=== PATIENT | female | born 1965 | race Caucasian/White ===

== ENCOUNTER 2016-11-14 11:24 | Inpatient (IN) ==
[2016-11-14] MEDS ORDERED: METOCLOPRAMIDE 10 MG/2 ML VIAL IV STA (11:48)
[2016-11-14] MEDS ORDERED: ONDANSETRON 4 MG/2 ML VIAL IV STA (11:48)
[2016-11-14] MEDS ORDERED: PANTOPRAZOLE 40 MG VIAL IV STA (11:48)
[2016-11-14] MEDS ORDERED: SODIUM CHLORIDE 0.9% 2,000 ML IV STA (11:48)
--- NOTE | 2016-11-14 11:53 | Emergency Department Note ---
Arrival - Arrival Chief Complaint: Abdominal / Flank Pain Stated Complaint: epigastric/ chest pain radiating to back/n/v ED Nursing Triage Note: C/O EPIGASTRIC PAIN WITH RADIATION TO THE RIGHT UPPER ABDOMEN WITH NAUSEA. PT HAS HX OF PANCREATITIS Mode of Arrival: Ambulatory Limitations: No Limitations Source: Patient Time Seen by Provider: 11/14/16 11:48 - History of Present Illness HPI Narrative: This 51-year-old white female presents with 2 days of progressive midepigastric burning radiating to the back. This has been associated with frequent vomiting and constant nausea. The patient does have a history of pancreatitis in the past secondary to alcohol abuse. She denies any liver problems, bright red blood per rectum, melena, or peptic ulcer disease. With this pain she has had significant heartburn and water brash symptoms. Complicating the situation is a week's worth of sinus congestion, rhinorrhea, and dry cough. Currently although uncomfortable she appears in no acute distress. Onset (ago): day(s) (patient presents 2 days post-onset of symptoms) Consistency: constant Severity: moderate Severity scale (1-10): 6 Quality: burning Date of Last Menstrual Period: HYST Allergies/Adverse Reactions: Allergies Allergy/AdvReac Type Severity Reaction Status Date / Time No Known Allergies Allergy Verified 01/01/16 01:37 Home Medications: Home Medications Medication Instructions Recorded Confirmed Type Escitalopram [Lexapro] 20 mg PO DAILY 02/25/15 11/14/16 History cloNIDine TAB [Catapres Tab] 0.2 mg PO TID #90 tablet 05/23/15 11/14/16 Rx Metoprolol Succinate Xl [Toprol Xl] 50 mg PO DAILY 07/25/15 11/14/16 History Losartan/Hydrochlorothiazide 1 tablet PO DAILY 01/01/16 11/14/16 History [Hyzaar 100-25 Tablet] Esomeprazole Magnesium [Nexium] 40 mg PO BID 10/12/16 11/14/16 History Oxycodone HCl/Acetaminophen 1 each PO TID 10/12/16 11/14/16 History [Percocet 10-325 mg Tablet] Gabapentin Cap/Tab [Neurontin 300 mg PO TID 11/14/16 11/14/16 History Cap/Tab] Review of System - Review of System 12 point system: reviewed and no additional remarkable complaints except as stated - Review of System Constitutional: Present: as per HPI Head/Ears/Nose/Throat: Present: see HPI Respiratory: Present: as per HPI Gastrointestinal: Present: as per HPI Medical,Surgical,& Family Hx - Medical History Cardio: History of: Hypertension Psychological: History of: Anxiety Disorders, Depression, Psychiatric/Substance Abuse Tx (history of alcohol use) HEENT: History of: HEENT Problems (sinus problems) Endocrine: History of: Dyslipidemia Respiratory: History of: Obstructive Sleep Apnea Gastrointestinal: History of: GERD, Pancreatitis, Polyps, GI Problems (Hiatal Hernia-- History of alcoholism) Musculoskeletal: History of: Back/Neck Problems (chronic back pain), Herniated Disk (3 in neck) Reproductive: No history of: Reproductive Problems (3 c sections) Other: No history of: Cancer - Surgical History Abdominal Surgeries: Surgical HX of: Abdominal Surgery (Exploratory lap 1981), Cholecystectomy, Colonoscopy (11/16/14) Reproductive Surgeries: Surgical HX of;: Hysterectomy (2004) - Family History Family History: Reports;: Family Heart Disease (mother had 2 surgeries), Family Hypertension (mother, brother, and sister) - Social History Smoking Status: Former smoker Have you smoked in the last 12 months: No Frequency of Alcohol Use: None Type of Drug Use: None Marital Status: Single Lives With:: Alone Functional capacity: independent ambulation Exam Physical Examination: GENERAL: Obese white female with flushed face in no acute distress. HEENT: Normocephalic. No trauma. Moist mucous membranes. EOMI. PERRLA ENT ears clear, throat clear, nose reveals nasal mucosa erythema and edema. NECK: Supple. Cervical adenopathy. CARDIAC: Regular. No murmurs. Heart rate 110 CHEST: Clear to auscultation. No respiratory distress. O2 sat 99% ABDOMEN: Soft. Very tender mid epigastrium. Hypoactive bowel sounds. EXTREMITIES: No trauma. Normal ROM. No pedal edema. SKIN: No diaphoresis. No rash. Flushed face NEURO: Alert. Physiologic exam No focal deficits. Vital Signs: Vital Signs Temperature 98.1 F 11/14/16 11:35 Pulse Rate 93 H 11/14/16 13:00 Respiratory Rate 15 11/14/16 12:16 Blood Pressure 159/96 11/14/16 13:00 O2 Sat by Pulse Oximetry 100 11/14/16 13:00 Course - Reevaluation(s) Reevaluation #1: Discussed with patient the need for hospitalization - Consultations Consultation #1: Discussed with hospitalist service who will admit for further evaluation and treatment. Results - Labs CBC & BMP: 11/14/16 12:01 11/14/16 12:01 Labs: I have reviewed the laboratory and noted the greatly elevated lipase. - Impressions EKG: Sinus rhythm at 99 with normal AL interval and QRS duration. Left axis deviation. Poor R-wave progression anteriorly. No acute injury pattern noted. - Diagnostic Findings Procedure: Chest x-ray: image reviewed by me, report reviewed by me (no acute disease), CT Abdomen and Pelvis: image reviewed by me, report reviewed by me ( mild diverticula, proximal stenosis of the SMA, pancreatitis with some stranding and fluid peripancreas) Disposition Clinical Impression: acute pancreatitis, SMA stenosis Case discussed with: patient Disposition: Still a Patient Condition: Stable Time of Disposition: 14:44
--- NOTE | 2016-11-14 12:14 | EKG Report ---
Stationary ECG Study [facility] ER Test Date: 11/14/2016 12:12:53 PM Pat Name: CECE ROA Department: Room: Gender: F Veterinary Virus Serum Inspector: THIERNO : 1965 Requested by: Layton Skelton Order Number: [id number] Reading MD: MICAH VARGAS Intervals [place] Rate: 99 P: 61 AR: 150 QRS: -53 QRSD: 76 T: 65 QT: 383 QTc: 439 Interpretive Statements SINUS RHYTHM MARKED LEFT AXIS DEVIATION possible SEPTAL MYOCARDIAL INFARCTION, OF INDETERMINATE AGE Electronically Signed On 11-14-16 18:02:21 ENAMEL DIPPER by MICAH VARGAS [email or web address]
[2016-11-14] MEDS ORDERED: PANTOPRAZOLE 40 MG VIAL IV ONE (12:15)
[2016-11-14] MEDS ORDERED: METOCLOPRAMIDE 10 MG/2 ML VIAL ONE (12:15)
[2016-11-14] MEDS ORDERED: ONDANSETRON 4 MG/2 ML VIAL ONE (12:15)
[2016-11-14 12:25] LABS: Basophils % 0.2 % (0.0-0.8); Eosinophils % 0.4 % (0.00-10.9); Hematocrit 48.4 VOL% (35.7-47.0); Hemoglobin 16.1 GM/DL (12.0-16.0); Immature Granulocytes % 0.5 %; Immature Granulocytes Absolute 0.06 #; Lymphocytes # 1.4 10*3/uL (1.4-4.0); Lymphocytes % 12.7 % (21.3-54.2); Mean Corpuscular HGB Conc 33.3 GM/DL (32-36); Mean Corpuscular Hemoglobin 32 PG (27-34); Mean Corpuscular Volume 95.7 FL (87-102); Mean Platelet Volume 10.5 FL (9.6-12.0); Monocytes # 0.5 10*3/uL (0.11-0.8); Neutrophils # 9.2 10*3/uL (1.4-7.4); Neutrophils % 82.2 % (38.7-73.9); Platelet Count 307 10*3/uL (130-400); Red Blood Count 5.06 10*6/uL (3.8-5.5); Red Cell Distribution Width 13.5 % (9.3-17.3); White Blood Count 11.2 10*3/uL (4.5-13.71)
[2016-11-14] MEDS ORDERED: KETOROLAC 30 MG/1 ML VIAL IV STA (12:28)
[2016-11-14] MEDS ORDERED: KETOROLAC 30 MG/1 ML VIAL ONE (12:30)
--- NOTE | 2016-11-14 12:34 | XRay Report ---
History is abdominal pain Comparison 10/13/2016 Chest one view The heart is normal in size. The lungs are clear. Impression: No acute pathology seen. PROCEDURE INTERPRETED AT [facility] [place] DEPARTMENT OF RADIOLOGY Final Report Signed by: Dr. Erika Bajwa
[2016-11-14] MEDS ORDERED: hydrALAZINE 20 MG/1 ML VIAL IV STA (12:43)
[2016-11-14] MEDS ORDERED: hydrALAZINE 20 MG/1 ML VIAL ONE (12:50)
[2016-11-14 12:58] LABS: Lactic Acid 2.6 MMOL/L (0.4-2.0)
[2016-11-14 13:00] LABS: Alanine Aminotransferase 47 U/L (13-56); Alkaline Phosphatase 98 U/L (45-117); Amylase 168 U/L (25-115); Aspartate Amino Transferase 52 U/L (0-37); Blood Urea Nitrogen 15 MG/DL (7-18); Glucose 169 MG/DL (74-106); Osmolality,Calculated 283.4 MOS/KG (273-304); Potassium 3.6 MMOL/L (3.5-5.1); Sodium 140 MMOL/L (136-145); Total Protein 7.2 G/DL (6.4-8.3); Troponin I Only < 0.015 NG/ML (0.00-0.045)
[2016-11-14] MEDS ORDERED: HYDROmorphone 2 MG/1 ML VIAL IV STA (13:32)
[2016-11-14] MEDS ORDERED: HYDROmorphone 2 MG/1 ML VIAL ONE (13:33)
[2016-11-14 13:57] LABS: Barbiturates Screen,Urine Negative (Negative); Benzodiazepines Screen,Urine Negative (Negative); Cannabinoid Screen,Urine Negative (Negative); Opiate Screen,Urine Positive (Negative); Phencyclidine Screen,Urine Negative (Negative)
[2016-11-14 14:12] LABS: Apearance,Urine Slightly Hazy (Clear); Bilirubin,Urine Negative (Negative); Blood, Urine Negative (Negative); Glucose,Urine (UA) Negative (Negative); Hyaline Casts,Urine 34 /LPF (0-3); Ketones,Urine Negative (Negative); Mucus,Urine Occasional /LPF (Occasional); Nitrite,Urine Negative (Negative); Protein,Urine Negative; RBC,Urine <1 /HPF (0-4); Squamous Epithelial Cell,Urine Occasional /HPF (0-10); Urine Color Yellow (Yellow); Urine Urobilinogen < 2.0 EU/DL (0.2-1.0); WBC,Urine 2 /HPF (0-6)
--- NOTE | 2016-11-14 14:26 | CT Report ---
History is pancreatitis Comparison with 07/26/2015 100 cc Omni 350 utilized A patient status post cholecystectomy. Mild biliary ductal prominence is similar on the prior study No focal defects seen in the liver, spleen, adrenals. areas of cortical scarring in both kidneys again seen more pronounced on the left There has been development of a mild amount of fluid and stranding in the fat surrounding the pancreas diffusely without a discrete more focal loculated fluid collection. Pancreatic duct is normal in size No enlarged retroperitoneal nodes seen. There are atherosclerotic changes present with at least moderate stenosis of the proximal SMA. Pelvis: There are mild diverticuli present. No free fluid or focal inflammatory changes seen in the pelvis. Impression: 1. Mild acute pancreatitis superimposed on chronic changes detailed above PROCEDURE INTERPRETED AT [facility] DEPARTMENT OF RADIOLOGY Final Report Signed by: Dr. Erika Bajwa
--- NOTE | 2016-11-14 15:10 | Hospitalist History & Physical ---
Assessment and Plan (1) Acute pancreatitis Status: Chronic Assessment and plan: Recurrent acute pancreatitis with elevated lipase we will hydrate the patient and watch her in the hospital she's has any fever or get blood cultures and start her on antibiotics. I don't believe that she needs any kind of studies at this time Current Visit: No Qualifiers: Pancreatitis type: alcohol induced History of Present Illness Chief complaint: abd pain History of present illness: Ms. Lopez is a 51 year old female 2 days of abdominal pain starting mid epigastric and radiating to her back is typical for the pain that she has when she has pancreatitis she states the pain got markedly worse in the middle the night. Her risk factor for pancreatitis she tells me his alcohol she had anything to drink in over a week. She's had no diarrhea and no bleeding accompanying this illness she denies any fever or chills. No other complaints and no alleviating factors Home Medications Medication Instructions Recorded Confirmed Type Escitalopram [Lexapro] 20 mg PO DAILY 02/25/15 11/14/16 History cloNIDine TAB [Catapres Tab] 0.2 mg PO TID #90 tablet 05/23/15 11/14/16 Rx Metoprolol Succinate Xl [Toprol Xl] 50 mg PO DAILY 07/25/15 11/14/16 History Losartan/Hydrochlorothiazide 1 tablet PO DAILY 01/01/16 11/14/16 History [Hyzaar 100-25 Tablet] Esomeprazole Magnesium [Nexium] 40 mg PO BID 10/12/16 11/14/16 History Oxycodone HCl/Acetaminophen 1 each PO TID 10/12/16 11/14/16 History [Percocet 10-325 mg Tablet] Gabapentin Cap/Tab [Neurontin 300 mg PO TID 11/14/16 11/14/16 History Cap/Tab] Allergies Allergy/AdvReac Type Severity Reaction Status Date / Time No Known Allergies Allergy Verified 01/01/16 01:37 Medical,Surgical,& Family Hx - Medical History Cardio: History of: Hypertension Psychological: History of: Anxiety Disorders, Depression, Psychiatric/Substance Abuse Tx (history of alcohol use) HEENT: History of: HEENT Problems (sinus problems) Endocrine: History of: Dyslipidemia Respiratory: History of: Obstructive Sleep Apnea Gastrointestinal: History of: GERD, Pancreatitis, Polyps, GI Problems (Hiatal Hernia-- History of alcoholism) Musculoskeletal: History of: Back/Neck Problems (chronic back pain), Herniated Disk (3 in neck) Reproductive: No history of: Reproductive Problems (3 c sections) Other: No history of: Cancer - Surgical History Abdominal Surgeries: Surgical HX of: Abdominal Surgery (Exploratory lap 1981), Cholecystectomy, Colonoscopy (11/16/14) Reproductive Surgeries: Surgical HX of;: Hysterectomy (2004) - Family History Family History: Reports;: Family Heart Disease (mother had 2 surgeries), Family Hypertension (mother, brother, and sister) - Social History Smoking Status: Former smoker Frequency of Alcohol Use: None Type of Drug Use: None Review of systems: Constitutional: No fatigue or fever Eyes: No loss of vision or blurred vision Ears: No decreased hearing no ear pain Mouth no lip swelling or sore throat Cardiovascular no chest pain no claudication Respiratory no cough or shortness of breath GI no abdominal pain or bloating or bleeding : No urinary frequency or hesitancy musculoskeletal: No Arthralgias or back pain Psychiatric: Confusion memory loss Endocrine: No polydipsia or polyuria Hematology: No easy bleeding or bruising 12 point review of systems otherwise unremarkable Exam - Constitutional Vitals: Period Temp Pulse Resp BP Sys/Boyce Pulse Ox Last 24 Hr 98.1 F 93-114 15-22 142-229/73-166 99-100 Exam: Constitutional: Patient in no apparent distress. Eyes: Conjunctivae and lids are normal Pupils equal round react to light and accommodation irises are normal HEENT: External ears and nose without lesions masses or scarring Oropharynx without erythema exudates or thrush Neck is supple without masses no jugular venous distention Lungs: Lungs are clear to auscultation and resonant percussion Cardiovascular: Heart auscultation regular rate and rhythm without murmur rub or gallop PMI in the midclavicular line by palpation carotid arteries 2+ without bruits bowel abdomen: Bowel sounds normoactive no masses no rebound or regular tenderness no organomegaly Lymphatic: No anterior posterior cervical or axillary adenopathy Musculoskeletal: No active synovitis no malalignment of the joints good range of motion of upper and lower extremities Skin : normal to inspection and palpation Neurologic: Cranial nerves II through XII intact motor sensory intact DTRs 2+ negative cerebellar signs Psychiatric: Oriented to person place and time normal memory normal mood and affect normal judgment Results - Labs CBC & BMP: 11/14/16 12:01 11/14/16 12:01
[2016-11-14] MEDS ORDERED: ACETAMINOPHEN 325 MG TABLET PO PRN (16:54)
[2016-11-14] MEDS ORDERED: PROMETHAZINE 25 MG TABLET PO PRN (16:54)
[2016-11-14] MEDS: MORPHINE 2 MG/1 ML SYRINGE IV PRN (17:15)
[2016-11-14] MEDS: DEXTROSE 5% NACL 0.9% 1,000 ML IV SCH ×2 (17:16→22:59)
[2016-11-14] MEDS: HYDROmorphone 2 MG/1 ML VIAL IV PRN ×2 (19:43→23:39)
[2016-11-14] MEDS: ONDANSETRON 4 MG/2 ML VIAL IV PRN (23:42)
[2016-11-15] MEDS: HYDROmorphone 2 MG/1 ML VIAL IV PRN ×6 (03:07→21:46)
[2016-11-15] MEDS: DEXTROSE 5% NACL 0.9% 1,000 ML IV SCH ×4 (04:47→21:49)
[2016-11-15 05:14] LABS: Basophils % 0.3 % (0.0-0.8); Eosinophils # 0.1 10*3/uL (0.0-0.87); Eosinophils % 1.9 % (0.00-10.9); Hematocrit 38.5 VOL% (35.7-47.0); Hemoglobin 12.6 GM/DL (12.0-16.0); Immature Granulocytes % 0.3 %; Immature Granulocytes Absolute 0.02 #; Lymphocytes # 1.6 10*3/uL (1.4-4.0); Lymphocytes % 23.8 % (21.3-54.2); Mean Corpuscular HGB Conc 32.7 GM/DL (32-36); Mean Corpuscular Hemoglobin 32 PG (27-34); Mean Platelet Volume 10.7 FL (9.6-12.0); Monocytes # 0.4 10*3/uL (0.11-0.8); Monocytes % 5.4 % (1.7-12.7); Neutrophils # 4.7 10*3/uL (1.4-7.4); Neutrophils % 68.3 % (38.7-73.9); Platelet Count 225 10*3/uL (130-400); Red Blood Count 3.89 10*6/uL (3.8-5.5); Red Cell Distribution Width 13.5 % (9.3-17.3); White Blood Count 6.8 10*3/uL (4.5-13.71)
[2016-11-15 05:44] LABS: Albumin 2.9 G/DL (3.4-5.0); Bilirubin,Total 1.2 MG/DL (0.2-1.0); Calcium 7.8 MG/DL (8.5-10.1); Potassium 3.3 MMOL/L (3.5-5.1); Total Protein 5.4 G/DL (6.4-8.3)
[2016-11-15] MEDS: ONDANSETRON 4 MG/2 ML VIAL IV PRN ×2 (06:33→18:15)
[2016-11-15] MEDS: NIFEdipine 10 MG CAPSULE PO PRN ×2 (06:43→08:53)
[2016-11-15] MEDS: LOSARTAN/HCTZ 50-12.5 MG TABLET PO SCH (08:52)
[2016-11-15] MEDS: METOPROLOL SUCCINATE XL 50 MG TABLET PO SCH (08:53)
--- NOTE | 2016-11-15 09:24 | Hospitalist Progress Note ---
Assessment and Plan (1) Acute pancreatitis Status: Chronic Assessment and plan: Recurrent acute pancreatitis with elevated lipase we will hydrate the patient and watch her in the hospital she's has any fever or get blood cultures and start her on antibiotics. I don't believe that she needs any kind of studies at this time 11/15 lipase is down a little bit still having pain continue the morphine keep her bowels at rest continue IV fluids. She's not had any fever or macro start antibiotics at this point her blood pressures gone up for gonorrhea add some oral medicines with sips of fluid Current Visit: No Qualifiers: Pancreatitis type: alcohol induced Hospitalist: Subjective Interval history: Patient without complaints today still having abdominal pain is a little bit better willing continue to continue the current medicines, add back some antihypertensives today Exam - Constitutional Vitals: Period Temp Pulse Resp BP Sys/Boyce Pulse Ox Last 24 Hr 97.2 F-99.2 F 82-110 18-23 145-225/98-123 97-100 Exam: Constitutional: Patient in no apparent distress. Eyes: Conjunctivae and lids are normal Pupils equal round react to light and accommodation irises are normal HEENT: External ears and nose without lesions masses or scarring Oropharynx without erythema exudates or thrush Neck is supple without masses no jugular venous distention Lungs: Lungs are clear to auscultation and resonant percussion Cardiovascular: Heart auscultation regular rate and rhythm without murmur rub or gallop PMI in the midclavicular line by palpation carotid arteries 2+ without bruits bowel abdomen: Bowel sounds normoactive no masses no rebound or regular tenderness no organomegaly Lymphatic: No anterior posterior cervical or axillary adenopathy Musculoskeletal: No active synovitis no malalignment of the joints good range of motion of upper and lower extremities Skin : normal to inspection and palpation Neurologic: Cranial nerves II through XII intact motor sensory intact DTRs 2+ negative cerebellar signs Psychiatric: Oriented to person place and time normal memory normal mood and affect normal judgment Results - Labs CBC & BMP: 11/15/16 04:10 11/15/16 04:10
[2016-11-16] MEDS: HYDROmorphone 2 MG/1 ML VIAL IV PRN ×4 (01:51→15:01)
[2016-11-16] MEDS: DEXTROSE 5% NACL 0.9% 1,000 ML IV SCH ×2 (03:33→08:43)
--- NOTE | 2016-11-16 05:40 | EKG Report ---
Stationary ECG Study [facility] Test Date: 11/16/2016 5:38:09 AM Pat Name: CECE ROA Department: Room: 519 Gender: F Renewal Specialist: SWAPNIL : 1965 Requested by: Sagar Kerr Order Number: [id number] Reading MD: ANTONIO RAZO Intervals [place] Rate: 69 P: 18 WI: 158 QRS: -46 QRSD: 82 T: 111 QT: 396 QTc: 415 Interpretive Statements SINUS RHYTHM MARKED LEFT AXIS DEVIATION SEPTAL MYOCARDIAL INFARCTION, PROBABLY OLD Electronically Signed On 11-16-16 08:50:47 FIELD SERVICES MANAGER by ANTONIO RAZO [email or web address]
[2016-11-16 06:25] LABS: Basophils % 0.2 % (0.0-0.8); Eosinophils # 0.1 10*3/uL (0.0-0.87); Eosinophils % 2.3 % (0.00-10.9); Hematocrit 40.1 VOL% (35.7-47.0); Hemoglobin 12.7 GM/DL (12.0-16.0); Immature Granulocytes % 0.4 %; Immature Granulocytes Absolute 0.02 #; Lymphocytes # 1.8 10*3/uL (1.4-4.0); Lymphocytes % 35.3 % (21.3-54.2); Mean Corpuscular HGB Conc 31.7 GM/DL (32-36); Mean Corpuscular Hemoglobin 32 PG (27-34); Mean Corpuscular Volume 101.5 FL (87-102); Mean Platelet Volume 10.8 FL (9.6-12.0); Monocytes # 0.2 10*3/uL (0.11-0.8); Monocytes % 4.2 % (1.7-12.7); Neutrophils % 57.6 % (38.7-73.9); Platelet Count 215 10*3/uL (130-400); Red Blood Count 3.95 10*6/uL (3.8-5.5); Red Cell Distribution Width 13.3 % (9.3-17.3); White Blood Count 5.2 10*3/uL (4.5-13.71)
[2016-11-16 06:41] LABS: Magnesium 2.1 MG/DL (1.8-2.4)
[2016-11-16 06:44] LABS: Bilirubin,Total 0.4 MG/DL (0.2-1.0); Calcium 8.5 MG/DL (8.5-10.1); Osmolality,Calculated 291.6 MOS/KG (273-304); Potassium 3.1 MMOL/L (3.5-5.1); Total Protein 5.8 G/DL (6.4-8.3)
[2016-11-16] MEDS: MORPHINE 2 MG/1 ML SYRINGE IV PRN (08:42)
[2016-11-16] MEDS: LOSARTAN/HCTZ 50-12.5 MG TABLET PO SCH (08:43)
[2016-11-16] MEDS: METOPROLOL SUCCINATE XL 50 MG TABLET PO SCH (08:43)
[2016-11-16] MEDS ORDERED: POTASSIUM CHLORIDE INJ 40 MEQ in DEXTROSE 5% NACL 0.9% 1,000 ML IV SCH (10:55)
[2016-11-16] MEDS: DEXT 5% NACL 0.9% KCL 40 MEQ 40 MEQ/1,000 ML BAG IV SCH ×2 (12:16→18:30)
[2016-11-16] MEDS: POTASSIUM CHLORIDE RIDER 10 MEQ in PREMIX 1 EACH IV SCH ×4 (12:16→15:34)
[2016-11-16] MEDS: POTASSIUM CHLORIDE 20 MEQ TABLET PO SCH ×2 (15:42→17:25)
--- NOTE | 2016-11-16 18:41 | Hospitalist Progress Note ---
Assessment and Plan (1) Pancreatitis, acute Status: Resolved Assessment and plan: see HPI, no more IV narcotic, po norco Current Visit: No Qualifiers: Pancreatitis type: alcohol induced (2) Hypokalemia Status: Acute Assessment and plan: replaced po Current Visit: Yes (3) Hypernatremia Status: Acute Assessment and plan: change ivf 1/2 ns Current Visit: Yes Hospitalist: Subjective Interval history: Nursing tells me impatience that her potassium was hurting too much from the IV. Patient is up at the snack machine and got 3 different things to eat. She ripped out her IV. If she is comfortable enough to eat she is comfortable to go without Dilaudid and morphine. Exam - Constitutional Vitals: Period Temp Pulse Resp BP Sys/Boyce Pulse Ox Last 24 Hr 96.3 F-98.4 F 69-78 18-24 121-196/83-110 90-100 Exam: Heart Rate-[RRR] Lungs-[CTAB] GI-[+bs soft, tender ] Ext-[no edema] neuro motor 5/5, alert and oriented times 3 psych normal mood and affect Results - Labs CBC & BMP: 11/16/16 05:18 11/16/16 05:18 Lab Results: I have reviewed the past 24 hour labs Labs: lipase 622
--- NOTE | 2016-11-16 19:29 | EKG Report ---
Stationary ECG Study [facility] Test Date: 11/16/2016 7:28:12 PM Pat Name: CECE ROA Department: Room: 519 Gender: F Auto Parts Handler: ARGENIS : 1965 Requested by: Lucero Teixeira Order Number: [id number] Reading MD: JULIETTE CA Intervals [place] Rate: 77 P: 17 IA: 137 QRS: -42 QRSD: 90 T: 88 QT: 384 QTc: 416 Interpretive Statements SINUS RHYTHM MARKED LEFT AXIS DEVIATION POSSIBLE RIGHT VENTRICULAR CONDUCTION DELAY MODERATE VOLTAGE CRITERIA FOR LVH, CONSIDER NORMAL VARIANT POSSIBLE ANTEROSEPTAL MYOCARDIAL INFARCTION, OF INDETERMINATE AGE MODERATE T- WAVE ABNORMALITY, CONSIDER LATERAL ISCHEMIA Electronically Signed On 11-16-16 19:57:48 LANDSCAPE FOREMAN by JULIETTE CA [id number]
[2016-11-16] MEDS: NIFEdipine 10 MG CAPSULE PO PRN (20:40)
[2016-11-17] MEDS: NIFEdipine 10 MG CAPSULE PO PRN (00:59)
[2016-11-17] MEDS: POTASSIUM CHLORIDE INJ 40 MEQ in SODIUM CHLORIDE 0.45% 1,000 ML IV SCH ×3 (01:25→11:59)
[2016-11-17 06:53] LABS: Albumin 3.5 G/DL (3.4-5.0); Bilirubin,Total 0.8 MG/DL (0.2-1.0); Calcium 9.2 MG/DL (8.5-10.1); Osmolality,Calculated 281.1 MOS/KG (273-304); Potassium 3.8 MMOL/L (3.5-5.1); Total Protein 6.6 G/DL (6.4-8.3)
[2016-11-17] MEDS: METOPROLOL SUCCINATE XL 50 MG TABLET PO SCH (08:42)
[2016-11-17] MEDS ORDERED: LOSARTAN 50 MG TABLET PO SCH (09:00)
[2016-11-17 11:19] VITALS: BP 162/109
--- NOTE | 2016-11-17 12:40 | Discharge Summary ---
<Yaakov,Amanda N - Last Filed: 11/17/16 12:36> Hospital Course - Hospital Course Hospital Course: Ms. Lopez is a 51 year old female who was admitted on 11/14/16 for acute pancreatitis. She was started on IV hydration and IV narcotics. She remained afebrile and required no IV antibiotics. She was kept NPO initially, began on clear liquid diet and progressed to soft diet, tolerated well. Pt needed some Potassium replacement, was intolerant of the IV potassium. She also was found getting up and walking to the snack machine and being non-compliant with the soft diet. She has been changed to PO pain medication. Her lipase is improved this morning, tolerating a diet, PO pain meds. She can be discharged to home today, please see discharge medication reconciliation for accurate discharge medications. Discharge Plan - Discharge Data Disposition: Disch To Home/Self Care - Discharge Medications New Losartan [Cozaar] 100 mg PO DAILY #60 tablet Promethazine Tab [Phenergan Tab] 25 mg PO Q6H PRN #30 tablet PRN Reason: Nausea Continue Escitalopram [Lexapro] 20 mg PO DAILY cloNIDine TAB [Catapres Tab] 0.2 mg PO TID #90 tablet Metoprolol Succinate Xl [Toprol Xl] 50 mg PO DAILY Oxycodone HCl/Acetaminophen [Percocet 10-325 mg Tablet] 1 each PO TID Esomeprazole Magnesium [Nexium] 40 mg PO BID Gabapentin Cap/Tab [Neurontin Cap/Tab] 300 mg PO TID Discontinued Losartan/Hydrochlorothiazide [Hyzaar 100-25 Tablet] 1 tablet PO DAILY - Follow Up or Referral - Forms/Instructions Instructions: Pancreatitis (DC), Abuse of Alcohol (DC) Exam - Constitutional Vitals: Period Temp Pulse Resp BP Sys/Boyce Pulse Ox Last 24 Hr 96.3 F-97.6 F 70-90 16-18 150-170/92-116 92-100 Discharge Results Procedures and tests throughout hospitalization: Pending Orders 11/14/16 18:14 Blood Culture Routine Labs on day of discharge: Labs from last 24 hours 11/17/16 11/17/16 05:33 05:33 Sodium 142 Potassium 3.8 Chloride 103 Carbon Dioxide 28 Anion Gap 14.8 BUN 2 L Creatinine 0.50 L GFR Calculation 119 BUN/Creatinine Ratio 4.00 L Glucose 144 H Calculated Osmolality 281.1 Calcium 9.2 Total Bilirubin 0.80 AST 18 ALT 19 Alkaline Phosphatase 77 Total Protein 6.6 Albumin 3.5 Globulin 3.1 Albumin/Globulin Ratio 1.1 Lipase 409.0 H D Preliminary micro results at discharge 11/14/16 18:14 Blood Culture - Preliminary Blood No growth at 1 day 11/14/16 18:14 Blood Culture - Preliminary Blood No growth at 1 day DS: Provider Date of admission: 11/14/16 14:46 Primary care physician: . No PCP Attending physician on admission: Heriberto Sanders MD Consults: 11/14/16 16:57 Consult to Pharmacy [CONS] Routine Reason for Pharmacy Consult: Adjust Meds Renal Funct Discharging clinician: ARLINE Daly <Lucero Junior - Last Filed: 11/17/16 13:59> Hospital Course - Hospital Course Hospital Course: Patient seen and examined. Patients hospital course reviewed and edited as follows. Patient informed me that she was a patient of Dr. Vaughn and is chronically on pain medications. She already has adequate supply of pain medicine. Patient needs outpatient weans for alcohol counseling. Doubt she will be compliant. Patient was eating things from the snack machine even when she was supposed to be on clear liquids. Patient will be discharged home today with follow-up with her primary care doctor in one to two weeks. I would change her losartan to without diuretics because it is adversely affecting her potassium which will cause her to be weak. - Time spent with patient Time with patient DS: Less than 30 minutes Diagnosis - Discharge Diagnosis (1) Pancreatitis, acute Status: Resolved (2) Hypokalemia Status: Acute (3) Hypernatremia Status: Acute Discharge Plan - Discharge Data Condition at Discharge: Stable Discharge Diet: other (soft ) Activity: resume usual activities as tolerated Hygiene: no restrictions Weight Bearing at Discharge: full weight bearing Exam - Constitutional Exam: Heart Rate-[RRR] Lungs-[CTAB] GI-[+bs soft, NT] Ext-[no edema]
== END 2016-11-17 14:09 | disposition home or self-care (01) | DRG 439 ==
LOC: N.ED 11:24 → N.EDINP 14:46 → N.5E 16:51
PROVIDERS: ADMIT Internal Medicine Pulmonary Disease; ATTEND Internal Medicine Pulmonary Disease

== ENCOUNTER 2016-12-11 02:36 | Inpatient (IN) ==
[2016-12-11] MEDS ORDERED: SODIUM CHLORIDE 0.9% 1,000 ML IV STA (03:01)
[2016-12-11] MEDS ORDERED: METOCLOPRAMIDE 10 MG/2 ML VIAL IV STA ×2 (03:01→03:50)
[2016-12-11] MEDS ORDERED: PANTOPRAZOLE 40 MG VIAL IV STA (03:01)
[2016-12-11] MEDS ORDERED: ONDANSETRON 4 MG/2 ML VIAL IV STA (03:01)
[2016-12-11] MEDS ORDERED: PANTOPRAZOLE 40 MG VIAL IV ONE (03:04)
[2016-12-11] MEDS ORDERED: METOCLOPRAMIDE 10 MG/2 ML VIAL ONE ×2 (03:05→03:53)
[2016-12-11] MEDS ORDERED: ONDANSETRON 4 MG/2 ML VIAL ONE (03:05)
--- NOTE | 2016-12-11 03:05 | Emergency Department Note ---
Arrival - Arrival Chief Complaint: Abdominal / Flank Pain Stated Complaint: ABD PAIN ED Nursing Triage Note: C/O Upper abd pain. Onset a couple of days ago. Pt has a history of pancreatitis s/p alcoholism in the past. Pt denies recent use of alcohol. Mode of Arrival: Stretcher Source: Patient Time Seen by Provider: 12/11/16 03:01 - History of Present Illness HPI Narrative: This 51-year-old white female who frequently presents for alcohol based acute pancreatitis presents once again with complaints of midepigastric pain radiating the back and nausea. She denies chills, fever, vomiting, or diarrhea. She was discharged less than a month ago for the same condition. She denies adamantly she has had any alcohol since discharge. Her CT 3 weeks ago revealed no evidence of pancreatic pseudocyst. Of note she is followed by Dr. Vaughn for chronic pain and is currently on oxycodone already. On exam she presents groaning with a pillow on her stomach. Onset (ago): hour(s) (patient presents with onset of symptoms 6 hours prior to presentation) Date of Last Menstrual Period: Hysterectomy Allergies/Adverse Reactions: Allergies Allergy/AdvReac Type Severity Reaction Status Date / Time No Known Allergies Allergy Verified 01/01/16 01:37 Home Medications: Home Medications Medication Instructions Recorded Confirmed Type cloNIDine TAB [Catapres Tab] 0.2 mg PO TID #90 tablet 05/23/15 12/11/16 Rx Losartan [Cozaar] 100 mg PO DAILY #60 tablet 11/17/16 12/11/16 Rx Review of System - Review of System 12 point system: reviewed and no additional remarkable complaints except as stated - Review of System Constitutional: Present: as per HPI Gastrointestinal: Present: as per HPI Medical,Surgical,& Family Hx - Medical History Cardio: History of: Hypertension Psychological: History of: Anxiety Disorders, Depression, Psychiatric/Substance Abuse Tx (history of alcohol use) Neurology: No history of: Brain Aneurysm, Cerebral Hemorrhage, Cerebrovascular Accident , Cerebral Palsy, Dementia, Migraine, Multiple Sclerosis, Parkinson's Disease, Peripheral Neuropathy, Seizures, TIA, Vertigo, Neurologocal Cancer HEENT: History of: HEENT Problems (sinus problems) Endocrine: History of: Dyslipidemia Respiratory: History of: Obstructive Sleep Apnea Gastrointestinal: History of: GERD, Pancreatitis, Polyps, GI Problems (Hiatal Hernia-- History of alcoholism) Musculoskeletal: History of: Back/Neck Problems (chronic back pain), Herniated Disk (3 in neck), Musculoskeletal Problems (arthritis) Reproductive: No history of: Reproductive Problems (3 c sections) Other: No history of: Cancer - Surgical History Neurologic Surgeries: Patient denies: Brain Aneurysm, Cerebral Hemorrhage, Neurologic Surgery HEENT Surgeries: Surgical HX of: Tonsilectomy & Adenoidectomy Abdominal Surgeries: Surgical HX of: Abdominal Surgery (Exploratory lap 1981), Cholecystectomy, Colonoscopy (11/16/14) Reproductive Surgeries: Surgical HX of;: Hysterectomy (2004) - Family History Family History: Reports;: Family Heart Disease (mother had 2 surgeries), Family Hypertension (mother, brother, and sister) - Social History Smoking Status: Former smoker Frequency of Alcohol Use: None Type of Drug Use: None Exam Physical Examination: GENERAL: Well developed, well nourished white female groaning but in no acute distress. HEENT: Normocephalic. No trauma. Moist mucous membranes. EOMI. PERRLA. NECK: Supple. No adenopathy. CARDIAC: Regular. No murmurs. Heart rate 100 CHEST: Clear to auscultation. No respiratory distress. O2 sat 99% ABDOMEN: Soft. Tender right upper quadrant and mid epigastrium. Active bowel sounds. EXTREMITIES: No trauma. Normal ROM. No pedal edema. SKIN: No diaphoresis. No rash. NEURO: Alert. No focal deficits. Vital Signs: Vital Signs Temperature 98.0 F 12/11/16 02:36 Pulse Rate 106 H 12/11/16 02:36 Respiratory Rate 20 12/11/16 02:36 Blood Pressure 186/156 12/11/16 02:36 O2 Sat by Pulse Oximetry 99 12/11/16 02:36 Course - Reevaluation(s) Reevaluation #1: Discussed with patient that yet again her pancreas is inflamed and she will need admission. - Consultations Consultation #1: Discussed with Dr. Hernandez, hospitalist, who will admit for further evaluation treatment. Results - Labs CBC & BMP: 12/11/16 02:44 12/11/16 02:44 Labs: I reviewed the laboratory and noted the very elevated lipase. Disposition Clinical Impression: pancreatitis Case discussed with: patient Disposition: Still a Patient Condition: Stable Time of Disposition: 03:52
[2016-12-11 03:10] LABS: Basophils % 0.2 % (0.0-0.8); Eosinophils # 0.1 10*3/uL (0.0-0.87); Eosinophils % 1.2 % (0.00-10.9); Hematocrit 41.9 VOL% (35.7-47.0); Hemoglobin 14.1 GM/DL (12.0-16.0); Immature Granulocytes % 0.4 %; Immature Granulocytes Absolute 0.04 #; Lymphocytes # 1.8 10*3/uL (1.4-4.0); Lymphocytes % 17.4 % (21.3-54.2); Mean Corpuscular HGB Conc 33.7 GM/DL (32-36); Mean Corpuscular Hemoglobin 32 PG (27-34); Mean Corpuscular Volume 95.9 FL (87-102); Mean Platelet Volume 10.8 FL (9.6-12.0); Monocytes # 0.5 10*3/uL (0.11-0.8); Monocytes % 5.3 % (1.7-12.7); Neutrophils # 7.7 10*3/uL (1.4-7.4); Neutrophils % 75.5 % (38.7-73.9); Platelet Count 213 T/CUMM (130-400); Red Blood Count 4.37 MC/CUMM (3.8-5.5); Red Cell Distribution Width 13.2 % (9.3-17.3); White Blood Count 10.1 T/CUMM (4-12)
[2016-12-11 03:29] LABS: Albumin 3.6 G/DL (3.4-5.0); Bilirubin,Total 0.7 MG/DL (0.2-1.0); Calcium 8.7 MG/DL (8.5-10.1); Osmolality,Calculated 283.4 MOS/KG (273-304); Potassium 3.9 MMOL/L (3.5-5.1); Total Protein 7.2 G/DL (6.4-8.3)
[2016-12-11] MEDS ORDERED: HYDROmorphone 2 MG/1 ML VIAL IV STA (03:50)
[2016-12-11 03:52] LABS: Lactic Acid 1.5 MMOL/L (0.4-2.0)
[2016-12-11] MEDS ORDERED: HYDROmorphone 2 MG/1 ML VIAL ONE (03:53)
[2016-12-11] MEDS: HYDROmorphone 2 MG/1 ML VIAL IV PRN ×5 (06:15→23:16)
[2016-12-11] MEDS: SODIUM CHLORIDE 0.9% 1,000 ML IV SCH ×3 (06:20→22:45)
[2016-12-11] MEDS: ENOXAPARIN 40 MG/0.4 ML SYRINGE SUBCUT SCH (06:27)
--- NOTE | 2016-12-11 08:34 | Event Note ---
I have seen Mrs Lopez in follow up. She is feeling better after pain medicine and plans to comply with clear liquid diet. Repeat labs in am. She predicts that she will be ok with oral meds soon.
--- NOTE | 2016-12-11 09:08 | Hospitalist History & Physical ---
Assessment and Plan - Time spent with patient Time spent with patient: Greater than 30 minutes (due to assessment, plan and documentation.) (1) Acute pancreatitis Status: Chronic Assessment and plan: NS @ 125cc/hr PRN Zofran and Dilaudid Current Visit: No Qualifiers: Pancreatitis type: alcohol induced (2) HTN (hypertension) Status: Chronic Current Visit: No Qualifiers: Hypertension type: essential hypertension Qualified Code(s): I10 - Essential (primary) hypertension (3) Nausea and vomiting Problem details: Vomiting has resolved. Status: Resolved Current Visit: No Qualifiers: Vomiting type: bilious vomiting Qualified Code(s): R11.14 - Bilious vomiting History of Present Illness Chief complaint: abdominal pain History of present illness: Ms. Lopez is a 51 year old female who presented to the ED last night with complaints of abdominal pain. She complains of midepigastric abdominal pain. She states that her pain began after drinking. She states that she does not drink routinely though. She denies having diabetes, but is hypertensive and says that she "probably" has high cholesterol. I will obtain a lipid panel to check for this. Repeat amylase/lipase for in AM. SHe is currently on NS @ 125 for her acute pancreatitis. She has been experiencing nausea without vomiting for the past day. She states that she sees Dr. Vaughn for chronic pain management and is questioning if she can have her pain medication increased. She mentions that she is fairly comfortable at this point and does not seem to be in any distress from pain. She has been put on PRN anti-emetics and Pain medications. Her lipase is elevated at 1099.0. We will continue treatment with IVF's and PRN medications for nausea, and pain. Repeat labs in AM. Further plan and addendum to follow by Dr. Amanda Encinas. Home Medications Medication Instructions Recorded Confirmed Type cloNIDine TAB [Catapres Tab] 0.2 mg PO TID #90 tablet 05/23/15 12/11/16 Rx Losartan [Cozaar] 100 mg PO DAILY #60 tablet 11/17/16 12/11/16 Rx Escitalopram [Lexapro] 20 mg PO DAILY 12/11/16 12/11/16 History Oxycodone HCl/Acetaminophen 10 mg PO TID 12/11/16 12/11/16 History [Percocet 10-325 mg Tablet] Allergies Allergy/AdvReac Type Severity Reaction Status Date / Time No Known Allergies Allergy Verified 12/11/16 06:37 Medical,Surgical,& Family Hx - Medical History Cardio: History of: Hypertension Psychological: History of: Anxiety Disorders, Depression, Psychiatric/Substance Abuse Tx (history of alcohol use) Neurology: No history of: Brain Aneurysm, Cerebral Hemorrhage, Cerebrovascular Accident , Cerebral Palsy, Dementia, Migraine, Multiple Sclerosis, Parkinson's Disease, Peripheral Neuropathy, Seizures, TIA, Vertigo, Neurologocal Cancer HEENT: History of: HEENT Problems (sinus problems) Endocrine: History of: Dyslipidemia Respiratory: History of: Obstructive Sleep Apnea Gastrointestinal: History of: GERD, Pancreatitis, Polyps, GI Problems (Hiatal Hernia-- History of alcoholism) Musculoskeletal: History of: Back/Neck Problems (chronic back pain), Herniated Disk (3 in neck), Musculoskeletal Problems (arthritis) Reproductive: No history of: Reproductive Problems (3 c sections) Other: No history of: Cancer - Surgical History Neurologic Surgeries: Patient denies: Brain Aneurysm, Cerebral Hemorrhage, Neurologic Surgery HEENT Surgeries: Surgical HX of: Tonsilectomy & Adenoidectomy Abdominal Surgeries: Surgical HX of: Abdominal Surgery (Exploratory lap 1981), Cholecystectomy, Colonoscopy (11/16/14) Reproductive Surgeries: Surgical HX of;: Hysterectomy (2004) - Family History Family History: Reports;: Family Heart Disease (mother had 2 surgeries), Family Hypertension (mother, brother, and sister) - Social History Smoking Status: Former smoker Frequency of Alcohol Use: None Type of Drug Use: None Marital Status: Single Lives With:: Alone Functional capacity: independent ambulation - Constitutional Constitutional: Absent: chills, fatigue, fever(s) - EENT Eyes: Absent: blurry vision, diplopia Ears: Absent: decreased hearing, tinnitus Nose, mouth and throat: Absent: dysphagia, headache(s) - Cardiovascular Cardiovascular: Absent: chest pain at rest, dyspnea on exertion - Respiratory Respiratory: Absent: cough, hemoptysis - Gastrointestinal Gastrointestinal: Present: abdominal pain, nausea. Absent: diarrhea, vomiting - Genitourinary Genitourinary: Absent: dysuria, hematuria - Musculoskeletal Musculoskeletal: Absent: arthralgias, joint swelling - Neurological Neurological: Absent: confusion, dizziness - Psychiatric Psychiatric: Absent: anxiety, confusion, depression - Endocrine Endocrine: Absent: cold intolerance, heat intolerance - Hematologic/Lymphatic Hematologic/Lymphatic: Absent: easy bleeding, easy bruising Exam - Constitutional Vitals: Period Temp Pulse Resp BP Sys/Boyce Pulse Ox Last 24 Hr 97.4 F-97.6 F 76-94 18-18 154-159/98-105 95 General appearance: normal weight, no acute distress - Head Head exam: Present: normal inspection, normocephalic - Eye Eye exam: Present: EOMI. Absent: scleral icterus Pupils: Present: VAN, normal accommodation - ENT ENT exam: Present: normal exam, normal oropharynx - Neck Neck exam: Present: normal inspection. Absent: lymphadenopathy - Respiratory Respiratory exam: Present: clear to auscultation bilaterally. Absent: wheezes - Cardiovascular Cardiovascular exam: Present: regular rate and rhythm. Absent: carotid bruit - GI/Abdominal GI/Abdominal exam: Present: normal bowel sounds, soft. Absent: tenderness - Extremities Exam Extremities exam: Present: normal inspection. Absent: edema - Back Exam Back exam: Present: normal inspection. Absent: muscle spasm - Neurological Exam Neurological exam: Present: alert, oriented X3 - Psychiatric Psychiatric exam: Present: normal affect, normal mood - Skin Skin exam: Present: normal color, warm, dry, intact Results - Labs CBC & BMP: 12/11/16 02:44 12/11/16 02:44 Lab Results: I have reviewed the past 24 hour labs
[2016-12-11] MEDS: PANTOPRAZOLE 40 MG TABLET PO SCH (10:03)
[2016-12-11] MEDS: LOSARTAN 50 MG TABLET PO SCH (10:03)
[2016-12-11] MEDS: cloNIDine 0.1 MG TABLET PO SCH ×3 (10:04→21:13)
[2016-12-11 10:16] LABS: Risk Ratio 5.62
[2016-12-12] MEDS: HYDROmorphone 2 MG/1 ML VIAL IV PRN ×5 (03:36→20:56)
[2016-12-12 05:33] LABS: Basophils % 0.7 % (0.0-0.8); Eosinophils # 0.1 10*3/uL (0.0-0.87); Hematocrit 31.5 VOL% (35.7-47.0); Hemoglobin 10.1 GM/DL (12.0-16.0); Immature Granulocytes % 0.3 %; Immature Granulocytes Absolute 0.01 #; Lymphocytes # 1.5 10*3/uL (1.4-4.0); Lymphocytes % 49.5 % (21.3-54.2); Mean Corpuscular HGB Conc 32.1 GM/DL (32-36); Mean Corpuscular Hemoglobin 32 PG (27-34); Mean Corpuscular Volume 98.1 FL (87-102); Monocytes # 0.2 10*3/uL (0.11-0.8); Neutrophils # 1.2 10*3/uL (1.4-7.4); Neutrophils % 40.5 % (38.7-73.9); Platelet Count 127 T/CUMM (130-400); Red Blood Count 3.21 MC/CUMM (3.8-5.5); Red Cell Distribution Width 13.1 % (9.3-17.3)
[2016-12-12 05:59] LABS: Hypochromasia 1+; Platelet Estimate Normal
[2016-12-12 06:06] LABS: Albumin 2.8 G/DL (3.4-5.0); Bilirubin,Total 0.4 MG/DL (0.2-1.0); Calcium 7.8 MG/DL (8.5-10.1); Osmolality,Calculated 292.6 MOS/KG (273-304); Potassium 3.8 MMOL/L (3.5-5.1); Total Protein 5.2 G/DL (6.4-8.3)
[2016-12-12] MEDS: SODIUM CHLORIDE 0.9% 1,000 ML IV SCH ×3 (07:44→23:16)
[2016-12-12] MEDS: cloNIDine 0.1 MG TABLET PO SCH ×3 (08:04→20:54)
[2016-12-12] MEDS: LOSARTAN 50 MG TABLET PO SCH (08:04)
[2016-12-12] MEDS: ENOXAPARIN 40 MG/0.4 ML SYRINGE SUBCUT SCH (08:04)
[2016-12-12] MEDS: PANTOPRAZOLE 40 MG TABLET PO SCH (08:04)
--- NOTE | 2016-12-12 09:15 | Pulmonology Progress Note ---
Pulmonary - PN: Subj Interval history: Patient with abdominal pain says is bothering her again this morning she wanted pain medicines she's only taking a clear liquid diet Exam (Progress Note) - Constitutional Vitals: Period Temp Pulse Resp BP Sys/Boyce Pulse Ox Last 24 Hr 97.2 F-98 F 76-93 12-20 105-158/68-90 97-99 Exam: Constitutional: General appearance is normal Eyes: Pupils equal round react to light and accommodation conjunctiva and lids are normal Neck: supple without masses Respiratory: Respiratory effort is normal. Lungs are clear to auscultation. Resonant to percussion. Cardiac: Regular rate and rhythm without murmur rub or gallop. PMI at the midclavicular line by palpation. Carotid arteries 2+ palpation no bruits GI: Bowel sounds normoactive, no tenderness or rebound tenderness, no organomegaly Extremities: no clubbing cyanosis or edema Results - Labs CBC & BMP: 12/12/16 05:10 12/12/16 05:10 Assessment and Plan (1) Pancreatitis Status: Resolved Assessment and plan: Patient is still hurting of decreased her lipase from 1000 345 her albumin is 2.8 BUN/creatinine are normal mattress 31 which is markedly decreased with hydration, go back on her fluids watch her carefully I don't think she is ready for discharge at Current Visit: No Qualifiers: Pancreatitis type: alcohol induced
[2016-12-13] MEDS: HYDROmorphone 2 MG/1 ML VIAL IV PRN ×6 (00:10→21:36)
--- NOTE | 2016-12-13 07:53 | Hospitalist Progress Note ---
Assessment and Plan (1) Pancreatitis Status: Resolved Assessment and plan: Patient is still hurting of decreased her lipase from 1000 345 her albumin is 2.8 BUN/creatinine are normal mattress 31 which is markedly decreased with hydration, go back on her fluids watch her carefully I don't think she is ready for discharge at 12/13 feels like she is no better on the go ahead and consult GI for an opinion continue her fluids continue on clear liquids, extra we have repeat lab for today Current Visit: No Qualifiers: Pancreatitis type: alcohol induced Hospitalist: Subjective Interval history: Patient continues with abdominal pain despite treatment she wants increased dilaudid Exam - Constitutional Vitals: Period Temp Pulse Resp BP Sys/Boyce Pulse Ox Last 24 Hr 97.1 F-98.8 F 75-91 17-20 127-203/78-139 98-100 Exam: Constitutional: General appearance is normal, obese Eyes: Pupils equal round react to light and accommodation conjunctiva and lids are normal Neck: supple without masses Respiratory: Respiratory effort is normal. Lungs are clear to auscultation. Resonant to percussion. Cardiac: Regular rate and rhythm without murmur rub or gallop. PMI at the midclavicular line by palpation. Carotid arteries 2+ palpation no bruits GI: Bowel sounds normoactive, diffuse tenderness no rebound tenderness, no organomegaly Extremities: no clubbing cyanosis or edema Results - Labs CBC & BMP: 12/12/16 05:10 12/12/16 05:10
[2016-12-13] MEDS: ENOXAPARIN 40 MG/0.4 ML SYRINGE SUBCUT SCH (08:15)
[2016-12-13] MEDS: LOSARTAN 50 MG TABLET PO SCH (08:15)
[2016-12-13] MEDS: PANTOPRAZOLE 40 MG TABLET PO SCH (08:15)
[2016-12-13] MEDS: SODIUM CHLORIDE 0.9% 1,000 ML IV SCH ×2 (08:18→17:06)
[2016-12-13] MEDS: cloNIDine 0.1 MG TABLET PO SCH ×3 (08:48→21:35)
[2016-12-13 08:58] LABS: Basophils % 0.1 % (0.0-0.8); Eosinophils # 0.1 10*3/uL (0.0-0.87); Eosinophils % 1.6 % (0.00-10.9); Hematocrit 34.5 VOL% (35.7-47.0); Hemoglobin 11.6 GM/DL (12.0-16.0); Immature Granulocytes % 0.4 %; Immature Granulocytes Absolute 0.03 #; Lymphocytes # 1.1 10*3/uL (1.4-4.0); Lymphocytes % 15.5 % (21.3-54.2); Mean Corpuscular HGB Conc 33.6 GM/DL (32-36); Mean Corpuscular Hemoglobin 32 PG (27-34); Mean Corpuscular Volume 95.6 FL (87-102); Monocytes # 0.3 10*3/uL (0.11-0.8); Monocytes % 4.7 % (1.7-12.7); Neutrophils # 5.3 10*3/uL (1.4-7.4); Neutrophils % 77.7 % (38.7-73.9); Platelet Count 155 T/CUMM (130-400); Red Blood Count 3.61 MC/CUMM (3.8-5.5); Red Cell Distribution Width 13.1 % (9.3-17.3); White Blood Count 6.8 T/CUMM (4-12)
[2016-12-13 09:26] LABS: Albumin 3.1 G/DL (3.4-5.0); Bilirubin,Total 0.4 MG/DL (0.2-1.0); Calcium 7.8 MG/DL (8.5-10.1); Osmolality,Calculated 293.4 MOS/KG (273-304); Potassium 3.5 MMOL/L (3.5-5.1); Total Protein 6.1 G/DL (6.4-8.3)
[2016-12-13] MEDS: ONDANSETRON 4 MG/2 ML VIAL IV PRN (21:36)
[2016-12-14] MEDS: HYDROmorphone 2 MG/1 ML VIAL IV PRN ×6 (01:53→23:44)
[2016-12-14] MEDS: ONDANSETRON 4 MG/2 ML VIAL IV PRN ×4 (01:54→23:44)
[2016-12-14] MEDS: SODIUM CHLORIDE 0.9% 1,000 ML IV SCH (05:00)
[2016-12-14 06:31] LABS: Basophils % 0.2 % (0.0-0.8); Eosinophils # 0.1 10*3/uL (0.0-0.87); Eosinophils % 1.7 % (0.00-10.9); Hematocrit 31.3 VOL% (35.7-47.0); Hemoglobin 10.4 GM/DL (12.0-16.0); Immature Granulocytes % 0.5 %; Immature Granulocytes Absolute 0.03 #; Lymphocytes # 1.2 10*3/uL (1.4-4.0); Mean Corpuscular HGB Conc 33.2 GM/DL (32-36); Mean Corpuscular Hemoglobin 32 PG (27-34); Mean Corpuscular Volume 95.4 FL (87-102); Mean Platelet Volume 10.9 FL (9.6-12.0); Monocytes # 0.3 10*3/uL (0.11-0.8); Monocytes % 5.7 % (1.7-12.7); Neutrophils # 4.2 10*3/uL (1.4-7.4); Neutrophils % 71.9 % (38.7-73.9); Platelet Count 141 T/CUMM (130-400); Red Blood Count 3.28 MC/CUMM (3.8-5.5); Red Cell Distribution Width 13.3 % (9.3-17.3); White Blood Count 5.8 T/CUMM (4-12)
[2016-12-14 07:04] LABS: Albumin 2.8 G/DL (3.4-5.0); Bilirubin,Total 0.9 MG/DL (0.2-1.0); Calcium 8.1 MG/DL (8.5-10.1); Osmolality,Calculated 287.6 MOS/KG (273-304); Potassium 3.3 MMOL/L (3.5-5.1); Total Protein 5.6 G/DL (6.4-8.3)
[2016-12-14] MEDS: cloNIDine 0.1 MG TABLET PO SCH ×3 (09:10→21:43)
[2016-12-14] MEDS: LOSARTAN 50 MG TABLET PO SCH (09:10)
[2016-12-14] MEDS: PANTOPRAZOLE 40 MG TABLET PO SCH (09:11)
[2016-12-14] MEDS: ENOXAPARIN 40 MG/0.4 ML SYRINGE SUBCUT SCH (10:30)
[2016-12-14] MEDS ORDERED: SODIUM CHLOR 0.9% KCL 40 MEQ 40 MEQ/1,000 ML BAG IV SCH (12:00)
--- NOTE | 2016-12-14 13:58 | CT Report ---
Exam: CT abdomen pelvis w con Date: 12/14/2016 11:30 AM Comparison: 11/14/2016 Indication: Pancreatitis Technique:[Sequential axial scans of the abdomen and pelvis were obtained following the ingestion of oral contrast and the injection of 100 cc of Omnipaque 350. Coronal and sagittal 2-D reconstructions were obtained. Total DLP: 1235.30] Findings: Progressive parenchymal findings at the lung bases especially in the right lung with mosaic perfusion and small pleural effusions. The heart is enlarged with calcification in the aortic valve and cardiac fat pads. Fatty infiltration on the liver with stable minimal dilatation of the bile ducts in patient with prior cholecystectomy. The spleen remains borderline in size to minimally enlarged. The pancreas is smaller in size with resolved peripancreatic edema/fluid. The adrenal glands are stable in appearance. Cortical scarring in the kidneys with minimal perinephric fluid especially on the right. Calcification in the wall of the nondilated abdominal aorta with atheromatous plaque formation. There is involvement of the proximal SMA with associated stenosis. No adjacent adenopathy. Small hiatal hernia with no dilatation of the small bowel. Small fat-containing umbilical hernia. Diverticulosis of the colon with no evidence of diverticulitis or free air. Prior appendectomy and hysterectomy with minimal pelvic ascites. Unremarkable urinary bladder. Degenerative changes are noted with prior T11 kyphoplasty. Minimal increased fluid in the soft tissues. Impression: Cardiomegaly with small pleural effusions. Evidence of mosaic perfusion especially in the right lung which can be seen with obliterative small airway disease, occlusive vascular disease, patchy interstitial disease, etc. Follow-up chest x-ray recommended. Prior cholecystectomy, appendectomy, and hysterectomy. Stable minimal dilatation of the bile ducts. Minimal ascites especially in the pelvis. Also appears that there is progressive anasarca and perinephric fluid, especially on the right. This latter finding could be related to infectious process, sequela of pancreatitis, fluid retention, etc. Significantly improved pancreatitis. Small hiatal hernia, small fat-containing umbilical hernia, diverticulosis of the colon, prior T11 kyphoplasty. Diffuse arterial calcifications with atheromatous plaque formation including the proximal SMA with associated approximate 50% stenosis. CTA may be helpful for further evaluation. PROCEDURE INTERPRETED AT [facility] DEPARTMENT OF RADIOLOGY Final Report Signed by: Dr. Soco Jane
--- NOTE | 2016-12-14 14:47 | Hospitalist Progress Note ---
Assessment and Plan (1) Diabetes Status: Acute Assessment and plan: new onset, diabetic education, and hgb A1c, ISC Current Visit: Yes (2) Personal history of alcoholism Problem details: History of recurrent pancreatitis Status: Chronic Assessment and plan: reports she has stopped drinking Current Visit: No (3) hyperliperdemia Status: Chronic Assessment and plan: trig 705 tricor started Current Visit: No (4) HTN (hypertension) Status: Chronic Assessment and plan: not controlled, coreg 6.25 mg added, cont losartan and clonidine. Current Visit: No Qualifiers: Hypertension type: essential hypertension Qualified Code(s): I10 - Essential (primary) hypertension (5) Pancreatitis, acute Status: Resolved Assessment and plan: Due to elevated triglycerides. Will start TriCor, advance diet, control diabetes, correct volume overload Current Visit: No Qualifiers: Pancreatitis type: alcohol induced (6) Hypokalemia Status: Acute Assessment and plan: k dur replacement daily Current Visit: No Hospitalist: Subjective Interval history: Patient tolerating clear liquids well. She said she is still having a lot of pain. She asked about a GI consult. I said I usually consult GI only if they are we suspect they have a stone. Her bilirubin is not elevated and her CT does not suggest a stone. Her blood pressure however is hard to control but I do not want to give her pain medicines more frequently than every 4 hours. Exam - Constitutional Vitals: Period Temp Pulse Resp BP Sys/Boyce Pulse Ox Last 24 Hr 97.2 F-99.0 F 75-106 18-24 122-209/81-120 94-97 Exam: Heart Rate-[RRR] Lungs-[CTAB but diminished ] GI-[+bs soft, tender epigastric region ] Ext-[no edema] neuro motor 5/5, alert and oriented times 3 psych normal mood and affect general mild acute distress Results - Labs CBC & BMP: 12/14/16 06:22 12/14/16 06:22 Lab Results: I have reviewed the past 24 hour labs Labs: Triglycerides 705 - Diagnostic Findings Procedure: CT Abdomen and Pelvis: report reviewed by me (Pancreatitis improving developing fluid overload)
[2016-12-14] MEDS ORDERED: DEXTROSE 50% 25 GM/50 ML VIAL IV PRN (14:57)
[2016-12-14] MEDS ORDERED: GLUCAGON 1 MG VIAL IM PRN (14:57)
[2016-12-14] MEDS: ESCITALOPRAM 10 MG TABLET PO SCH (16:13)
[2016-12-14] MEDS: CARVEDILOL 6.25 MG TABLET PO SCH ×2 (16:13→21:43)
[2016-12-14] MEDS: POTASSIUM CHLORIDE 20 MEQ TABLET PO SCH (16:13)
[2016-12-14] MEDS: FUROSEMIDE 20 MG/2 ML VIAL IV SCH (16:14)
[2016-12-14] MEDS: INSULIN LISPRO 100 UNIT/ML SUBCUT SCH ×2 (16:59→21:42)
[2016-12-14] MEDS: FENOFIBRATE 160 MG TABLET PO SCH (17:33)
--- NOTE | 2016-12-14 18:45 | ECHO Report ---
Cristine Lopez Exam Date: 12/14/2016 15:41 Referring Physician: Technologist: Grady HESS Age: 51 Ht (in): Wt (lb): Gender: F Exam Location: [facility] Echo Indications: HTN, Hyperlipidemia, hypernatremia, [place], hypokalemia, SMA, pancreatitis BP: / HR: Rhythm: Sinus Technical Quality: IMPRESSIONS Technically adequate study Normal chamber sizes 2-3+ concentric LVH Normal LV systolic function with ejection fraction estimated to be 60% out segmental wall motion abnormality 3-4+ aortic stenosis (moderately severe) with mean/peak gradients of 35/71 mmHg 2+ tricuspid regurgitation with RVSP 39 mmHg plus RAP ASHLEY could be considered to clarify whether the patient has severe aortic stenosis or not MEASUREMENTS (Male / Female) Normal Values 2D ECHO LV Diastolic Diameter PLAX 4.2 cm 4.2 - 5.9 / 3.9 - 5.3 cm LV Systolic Diameter PLAX 2.8 cm LV Fractional Shortening PLAX 33.2 % IVS Diastolic Thickness 1.7 cm 0.6 - 1.0 / 0.6 - 0.9 cm LVPW Diastolic Thickness 1.0 cm 0.6 - 1.0 / 0.6 - 0.9 cm RV Internal Dim ED PLAX 2.9 cm Aortic Root Diameter 2.7 cm LA Systolic Diameter LX 3.8 cm 3.0 - 4.0 / 2.7 - 3.8 cm DOPPLER TR Peak Velocity 311.0 cm/s TR Peak Gradient 38.7 mmHg FINDINGS Left Ventricle Severely increased septal wall thickness. Mildly increased posterior wall thickness. Normal left ventricular size and systolic function, left ventricular ejection fraction is estimated at Right Ventricle Normal right ventricular size and systolic function. Right Atrium Normal right atrial size. Left Atrium Normal left atrial size. Mitral Valve Mildly thickened mitral valve with mild mitral regurgitation. Aortic Valve Aortic valve area is 1.3 cm. Aortic valve mean gradient is 35 mmHg. Tricuspid Valve Morphologically normal tricuspid valve. Moderate tricuspid valve regurgitation. Tricuspid regurgitation velocities suggest a PAP of 38.7 mmHg + RAP. Pulmonic Valve Pulmonic valve not well visualized. Trace - mild pulmonary valve regurgitation. Pericardium No pericardial effusion. Aorta Normal size aortic root and proximal ascending aorta. Otis Talbert (Electronically Signed) Final Date: 14 December 2016 18:44
[2016-12-14] MEDS ORDERED: oxyCODONE/ACETAMINOPHEN 5-325 MG TABLET PO PRN (21:44)
[2016-12-14] MEDS ORDERED: ALBUTEROL/IPRATROPIUM 3 ML NEB RESP TX PRN (21:46)
[2016-12-15] MEDS: ONDANSETRON 4 MG/2 ML VIAL IV PRN ×2 (03:51→17:45)
[2016-12-15] MEDS: HYDROmorphone 2 MG/1 ML VIAL IV PRN ×5 (03:51→21:40)
[2016-12-15] MEDS: INSULIN LISPRO 100 UNIT/ML SUBCUT SCH ×3 (09:43→21:47)
[2016-12-15] MEDS: FUROSEMIDE 20 MG/2 ML VIAL IV SCH (10:02)
[2016-12-15] MEDS: ENOXAPARIN 40 MG/0.4 ML SYRINGE SUBCUT SCH (10:30)
[2016-12-15] MEDS: POTASSIUM CHLORIDE 20 MEQ TABLET PO SCH (10:30)
[2016-12-15] MEDS: ESCITALOPRAM 10 MG TABLET PO SCH (10:30)
[2016-12-15] MEDS: FENOFIBRATE 160 MG TABLET PO SCH (10:30)
[2016-12-15] MEDS: PANTOPRAZOLE 40 MG TABLET PO SCH (10:30)
[2016-12-15] MEDS: cloNIDine 0.1 MG TABLET PO SCH ×4 (12:00→21:46)
[2016-12-15] MEDS: LOSARTAN 50 MG TABLET PO SCH (12:30)
[2016-12-15] MEDS: CARVEDILOL 6.25 MG TABLET PO SCH (13:30)
--- NOTE | 2016-12-15 14:30 | Hospitalist Progress Note ---
Assessment and Plan (1) Diabetes Status: Acute Assessment and plan: new onset, diabetic education, and hgb A1c 6.6 Current Visit: Yes (2) Personal history of alcoholism Problem details: History of recurrent pancreatitis Status: Chronic Assessment and plan: reports she has stopped drinking Current Visit: No (3) hyperliperdemia Status: Chronic Assessment and plan: trig 705, cont tricor Current Visit: No (4) HTN (hypertension) Status: Chronic Assessment and plan: cont losartan and clonidine Current Visit: No Qualifiers: Hypertension type: essential hypertension Qualified Code(s): I10 - Essential (primary) hypertension (5) Pancreatitis, acute Status: Resolved Assessment and plan: Due to elevated triglycerides. cont TriCor, advance diet, home in am Current Visit: No Qualifiers: Pancreatitis type: alcohol induced (6) Hypokalemia Status: Acute Assessment and plan: k dur replacement daily Current Visit: No Hospitalist: Subjective Interval history: Patient feels like she can tolerate a soft diet today. If she does well I will send her home tomorrow. Exam - Constitutional Vitals: Period Temp Pulse Resp BP Sys/Boyce Pulse Ox Last 24 Hr 96.9 F-98.9 F 77-97 18-20 96-167/57-92 96-99 Exam: Heart Rate-[RRR] Lungs-[CTAB] GI-[+bs soft, tender epigastric region but better] Ext-[no edema] neuro motor 5/5, alert and oriented times 3 psych normal mood and affect general no acute distress Results - Labs CBC & BMP: 12/14/16 06:22 12/14/16 06:22 Lab Results: I have reviewed the past 24 hour labs
[2016-12-16] MEDS: HYDROmorphone 2 MG/1 ML VIAL IV PRN ×3 (01:45→12:10)
[2016-12-16 07:21] VITALS: BP 147/87
--- NOTE | 2016-12-16 08:57 | Discharge Summary ---
Hospital Course - Hospital Course Hospital Course: 51-year-old female that presents with severe abdominal pain consistent with pancreatitis. Her lipase on admission was 1099 which is improved to 80. Patient was made n.p.o. with ice chips and it is now tolerating a soft diet. Patient's blood sugars were elevated consistent with new onset diabetes. Her hemoglobin A1c was 6.6. We had diabetic education see her for counseling. Her CT of her abdomen showed improving pancreatitis. Common bile duct was not dilated and a bilirubin was normal. Her triglycerides are 705 with a cholesterol level of 219. I have started her on TriCor. This does run in the family and per discussion with her. She will be discharged home today to follow-up with her primary care doctor in 2 weeks. She has a history of alcohol abuse. She says that she has stopped drinking for now which is excellent. I have encouraged her to get involved with AA. - Time spent with patient Time with patient DS: Greater than 30 minutes Diagnosis - Discharge Diagnosis (1) Diabetes Status: Acute (2) Personal history of alcoholism Status: Chronic (3) hyperliperdemia Status: Chronic (4) HTN (hypertension) Status: Chronic (5) Pancreatitis, acute Status: Resolved (6) Hypokalemia Status: Acute Discharge Plan - Discharge Data Disposition: Disch To Home/Self Care Condition at Discharge: Stable Discharge Diet: diabetic diet Activity: resume usual activities as tolerated Hygiene: no restrictions Weight Bearing at Discharge: full weight bearing - Discharge Medications New Fenofibrate [Tricor] 160 mg PO DAILY #30 tablet Pantoprazole Tab [Protonix Tab] 40 mg PO DAILY #30 tablet Continue Oxycodone HCl/Acetaminophen [Percocet 10-325 mg Tablet] 10 mg PO TID Losartan [Cozaar] 100 mg PO DAILY #60 tablet cloNIDine TAB [Catapres Tab] 0.2 mg PO TID #180 tablet Escitalopram [Lexapro] 20 mg PO DAILY #30 tablet - Follow Up or Referral Follow Up: pmelizabeth, [Other] - 2 Weeks - Forms/Instructions Exam - Constitutional Vitals: Period Temp Pulse Resp BP Sys/Boyce Pulse Ox Last 24 Hr 96 F-99.9 F 73-94 20-20 112-147/73-88 94-97 General appearance: normal weight, no acute distress - Respiratory Respiratory exam: Present: clear to auscultation bilaterally. Absent: wheezes - Cardiovascular Cardiovascular exam: Present: regular rate and rhythm. Absent: systolic murmur - GI/Abdominal GI/Abdominal exam: Present: normal bowel sounds, soft Discharge Results Labs on day of discharge: Labs from last 24 hours 12/16/16 12/15/16 12/15/16 07:16 21:36 16:49 POC Glucose 128 H 145 H 69 L 12/15/16 11:40 POC Glucose 209 H Preliminary micro results at discharge 12/11/16 09:08 Blood Culture - Preliminary Blood No growth at 3 days DS: Provider Date of admission: 12/11/16 04:04 Primary care physician: . No PCP Attending physician on admission: Giovanni Hernandez MD Consults: 12/14/16 14:55 Consult to [facility], Educator [CONS] Routine Reason for Detasseler: Diabetes Education Discharging clinician: Lucero Jnuior MD
[2016-12-16] MEDS ORDERED: FUROSEMIDE 20 MG TABLET PO SCH (09:00)
[2016-12-16] MEDS: cloNIDine 0.1 MG TABLET PO SCH (10:34)
[2016-12-16] MEDS: POTASSIUM CHLORIDE 20 MEQ TABLET PO SCH (10:35)
[2016-12-16] MEDS: FENOFIBRATE 160 MG TABLET PO SCH (10:35)
[2016-12-16] MEDS: PANTOPRAZOLE 40 MG TABLET PO SCH (10:35)
[2016-12-16] MEDS: ESCITALOPRAM 10 MG TABLET PO SCH (10:35)
[2016-12-16] MEDS: ENOXAPARIN 40 MG/0.4 ML SYRINGE SUBCUT SCH (10:35)
[2016-12-16] MEDS: LOSARTAN 50 MG TABLET PO SCH (10:35)
[2016-12-16] MEDS: INSULIN LISPRO 100 UNIT/ML SUBCUT SCH ×2 (10:40→12:58)
== END 2016-12-16 13:30 | disposition home or self-care (01) | DRG 440 ==
LOC: EDBD → EDUNIT# → N.ED 02:36 → SUATTDRO 04:04 → N.EDINP 04:04 → N.2E 05:40 → N.OB 12-14 03:45
PROVIDERS: ADMIT Internal Medicine; ATTEND Internal Medicine

== ENCOUNTER 2017-02-02 03:34 | Inpatient (IN) ==
[2017-02-02] MEDS ORDERED: SODIUM CHLORIDE 0.9% 1,000 ML IV STA (03:57)
[2017-02-02] MEDS ORDERED: PANTOPRAZOLE 40 MG VIAL IV STA (03:57)
[2017-02-02] MEDS ORDERED: ONDANSETRON 4 MG/2 ML VIAL IV STA ×3 (03:57→06:03)
[2017-02-02] MEDS ORDERED: KETOROLAC 30 MG/1 ML VIAL IV STA (03:57)
--- NOTE | 2017-02-02 03:59 | Emergency Department Note ---
Arrival - Arrival Chief Complaint: Abdominal / Flank Pain Stated Complaint: ask pt ED Nursing Triage Note: c/c RUQ pain radiating into back started at midnight. Has history of pancreatitis Mode of Arrival: Wheelchair Time Seen by Provider: 02/02/17 03:50 - History of Present Illness HPI Narrative: Patient complains of upper abdominal pain which radiates through to the back. She states in the past she has had a history of pancreatitis was flared from time to time even though she does not drink alcohol anymore. The patient has been seen by Dr. Vaughn for pain management in addition to being hospitalized by the hospitalist service recently with Dr. Lucero Junior being the attending physician. She denies any fever or diarrhea. The pain and nausea vomiting started about midnight. She denies any other complaints at this time. Allergies/Adverse Reactions: Allergies Allergy/AdvReac Type Severity Reaction Status Date / Time No Known Allergies Allergy Verified 02/02/17 03:42 Home Medications: Home Medications Medication Instructions Recorded Confirmed Type Oxycodone HCl/Acetaminophen 10 mg PO TID 12/11/16 02/02/17 History [Percocet 10-325 mg Tablet] Escitalopram [Lexapro] 20 mg PO DAILY #30 tablet 12/16/16 02/02/17 Rx Fenofibrate [Tricor] 160 mg PO DAILY #30 tablet 12/16/16 02/02/17 Rx Losartan [Cozaar] 100 mg PO DAILY #60 tablet 12/16/16 02/02/17 Rx Pantoprazole Tab [Protonix Tab] 40 mg PO DAILY #30 tablet 12/16/16 02/02/17 Rx cloNIDine TAB [Catapres Tab] 0.2 mg PO TID #180 tablet 12/16/16 02/02/17 Rx Review of System - Review of System 12 point system: reviewed and no additional remarkable complaints except as stated Medical,Surgical,& Family Hx - Medical History Cardio: History of: Hypertension Psychological: History of: Anxiety Disorders, Depression, Psychiatric/Substance Abuse Tx (history of alcohol use) Neurology: No history of: Brain Aneurysm, Cerebral Hemorrhage, Cerebrovascular Accident , Cerebral Palsy, Dementia, Migraine, Multiple Sclerosis, Parkinson's Disease, Peripheral Neuropathy, Seizures, TIA, Vertigo, Neurologocal Cancer HEENT: History of: HEENT Problems (sinus problems) Endocrine: History of: Dyslipidemia Respiratory: History of: Obstructive Sleep Apnea Gastrointestinal: History of: GERD, Pancreatitis, Polyps, GI Problems (Hiatal Hernia-- History of alcoholism) Musculoskeletal: History of: Back/Neck Problems (chronic back pain), Herniated Disk (3 in neck) Reproductive: No history of: Reproductive Problems (3 c sections) Other: No history of: Cancer - Surgical History Neurologic Surgeries: Patient denies: Brain Aneurysm, Cerebral Hemorrhage, Neurologic Surgery Abdominal Surgeries: Surgical HX of: Abdominal Surgery (Exploratory lap 1981), Cholecystectomy, Colonoscopy (11/16/14) Reproductive Surgeries: Surgical HX of;: Hysterectomy (2004) - Family History Family History: Reports;: Family Heart Disease (mother had 2 surgeries), Family Hypertension (mother, brother, and sister) - Social History Smoking Status: Former smoker Frequency of Alcohol Use: None Type of Drug Use: None Exam Physical Examination: General: Patient is well-developed and well-nourished with no acute distress noted. HEENT: The extraocular muscles are intact. Oropharynx is moist. There is no erythema or exudate. The tympanic membranes are shiny bilaterally. Neck: There is no adenopathy. Full range of motion is noted without pain. The trachea is midline. No JVD is present. Lungs: There is normal excursion of the chest with the lungs sounding clear bilaterally. No subcostal retractions are present. There is no point tenderness present. Heart: The heart has a regular rate and rhythm with no gallops or murmurs. Abdomen: The abdomen is diffusely tender and nondistended with no rebound, guarding, or masses. Bowel sounds are normal. Back: The back demonstrates a normal appearance with no evidence of trauma. Genitourinary: Not examined. Extremities: The extremities demonstrate no clubbing, cyanosis, or edema. The visualized range of motion is normal. They appear atraumatic. Neuro: Cranial nerves II through XII are checked and intact. There is no focal motor or sensory deficit seen in the extremities. Skin: Skin is warm and dry with no evidence of rash. Vital Signs: Vital Signs Temperature 97.3 F L 02/02/17 03:38 Pulse Rate 114 H 02/02/17 05:28 Respiratory Rate 20 02/02/17 05:28 Blood Pressure 200/119 02/02/17 05:28 O2 Sat by Pulse Oximetry 100 02/02/17 05:28 Course - Reevaluation(s) Reevaluation #1: The patient was noted to be asleep after receiving ketorolac. She was given additionally some Apresoline to help with her hypertension. Her lipase is elevated and most likely she will need to be admitted. Additionally her hypertension has not responded well to Apresoline. Time: 05:16 - Consultations Consultation #1: Dr. Rodrigue Luo will evaluate and admit the patient. Time: 05:17 Results - Labs CBC & BMP: 02/02/17 03:47 02/02/17 03:47 Lab Results: I have reviewed the patients labs Labs: Lab Results WBC 10.5 T/CUMM (4-12) 02/02/17 03:47 RBC 4.84 MC/CUMM (3.8-5.5) 02/02/17 03:47 Hgb 14.8 GM/DL (12.0-16.0) 02/02/17 03:47 Hct 45.0 VOL% (35.7-47.0) 02/02/17 03:47 MCV 93.0 FL (87-102) 02/02/17 03:47 MCH 31 PG (27-34) 02/02/17 03:47 MCHC 32.9 GM/DL (32-36) 02/02/17 03:47 RDW 14.1 % (9.3-17.3) 02/02/17 03:47 Plt Count 280 T/CUMM (130-400) 02/02/17 03:47 MPV 11.0 FL (9.6-12.0) 02/02/17 03:47 Neut % (Auto) 86.6 % (38.7-73.9) H 02/02/17 03:47 Lymph % (Auto) 8.8 % (21.3-54.2) L 02/02/17 03:47 [place] % (Auto) 3.6 % (1.7-12.7) 02/02/17 03:47 Eos % (Auto) 0.3 % (0.00-10.9) 02/02/17 03:47 Baso % (Auto) 0.3 % (0.0-0.8) 02/02/17 03:47 Neut # (Auto) 9.1 10*3/uL (1.4-7.4) H 02/02/17 03:47 Lymph # (Auto) 0.9 10*3/uL (1.4-4.0) L 02/02/17 03:47 [place] # (Auto) 0.4 10*3/uL (0.11-0.8) 02/02/17 03:47 Eos # (Auto) 0.0 10*3/uL (0.0-0.87) 02/02/17 03:47 Baso # (Auto) 0.0 10*3/uL (0.0-0.2) 02/02/17 03:47 Immature Gran % 0.4 % 02/02/17 03:47 Nucleated RBC % 0.0 /100WBC 02/02/17 03:47 Immature Gran # 0.04 # 02/02/17 03:47 Nucleated RBCs # 0.00 10*3/uL 02/02/17 03:47 Sodium 138 MMOL/L (136-145) 02/02/17 03:47 Potassium 3.4 MMOL/L (3.5-5.1) L 02/02/17 03:47 Chloride 102 MMOL/L (98-107) 02/02/17 03:47 Carbon Dioxide 26 MMOL/L (21-32) 02/02/17 03:47 Anion Gap 13.4 MMOL/L (5.0-15.0) 02/02/17 03:47 BUN 12 MG/DL (7-18) 02/02/17 03:47 Creatinine 1.00 MG/DL (0.55-1.02) 02/02/17 03:47 GFR Calculation 70 ML/MIN 02/02/17 03:47 BUN/Creatinine Ratio 12.00 RATIO (6.00-20.00) 02/02/17 03:47 Glucose 219 MG/DL (74-106) H 02/02/17 03:47 Calculated Osmolality 281.7 MOS/KG (273-304) 02/02/17 03:47 Calcium 9.3 MG/DL (8.5-10.1) 02/02/17 03:47 Magnesium 1.8 MG/DL (1.8-2.4) 02/02/17 03:47 Total Bilirubin 0.70 MG/DL (0.2-1.0) 02/02/17 03:47 AST 25 U/L (0-37) 02/02/17 03:47 ALT 28 U/L (13-56) 02/02/17 03:47 Alkaline Phosphatase 94 U/L (45-117) 02/02/17 03:47 Troponin I 0.043 NG/ML (0.00-0.045) 02/02/17 03:47 Total Protein 7.6 G/DL (6.4-8.3) 02/02/17 03:47 Albumin 4.6 G/DL (3.4-5.0) 02/02/17 03:47 Globulin 3.0 G/DL (2.3-3.5) 02/02/17 03:47 Albumin/Globulin Ratio 1.5 RATIO (1.1-2.2) 02/02/17 03:47 Amylase 297 U/L (25-115) H 02/02/17 03:47 Lipase 1355.0 U/L (73-393) H 02/02/17 03:47 Urine Color Yellow (Yellow) 02/02/17 03:47 Urine Appearance Clear (Clear) 02/02/17 03:47 Urine pH 6.0 (4.5-8.0) 02/02/17 03:47 Ur Specific [place] 1.016 (1.001-1.035) 02/02/17 03:47 Urine Protein Negative MG/DL 02/02/17 03:47 Urine Glucose (UA) 150 mg/dL (Negative) 02/02/17 03:47 Urine Ketones Negative mg/dL (Negative) 02/02/17 03:47 Urine Blood Negative mg/dL (Negative) 02/02/17 03:47 Urine Nitrate Negative (Negative) 02/02/17 03:47 Urine Bilirubin Negative mg/dL (Negative) 02/02/17 03:47 Urine Urobilinogen < 2.0 EU/DL (0.2-1.0) H 02/02/17 03:47 Urine Leukocytes Trace Jase/ul (Negative) 02/02/17 03:47 Urine RBC 2 /HPF (0-4) 02/02/17 03:47 Urine WBC 1 /HPF (0-6) 02/02/17 03:47 Ur Squamous Epith Cells Occasional /HPF (0-10) 02/02/17 03:47 Urine Mucus Occasional /LPF (Occasional) 02/02/17 03:47 Ur Culture Indicated? Not indicated 02/02/17 03:47 Disposition Clinical Impression: Pancreatitis, Opiate dependence, Personal history of alcoholism, HTN ( hypertension) Case discussed with: patient Disposition: Still a Patient Condition: Stable Time of Disposition: 05:55
[2017-02-02] MEDS ORDERED: ONDANSETRON 4 MG/2 ML VIAL ONE ×2 (04:00→05:17)
[2017-02-02] MEDS ORDERED: PANTOPRAZOLE 40 MG VIAL IV ONE (04:00)
[2017-02-02] MEDS ORDERED: KETOROLAC 30 MG/1 ML VIAL ONE (04:00)
[2017-02-02 04:22] LABS: Basophils % 0.3 % (0.0-0.8); Eosinophils % 0.3 % (0.00-10.9); Hemoglobin 14.8 GM/DL (12.0-16.0); Immature Granulocytes % 0.4 %; Immature Granulocytes Absolute 0.04 #; Lymphocytes # 0.9 10*3/uL (1.4-4.0); Lymphocytes % 8.8 % (21.3-54.2); Mean Corpuscular HGB Conc 32.9 GM/DL (32-36); Mean Corpuscular Hemoglobin 31 PG (27-34); Monocytes # 0.4 10*3/uL (0.11-0.8); Monocytes % 3.6 % (1.7-12.7); Neutrophils # 9.1 10*3/uL (1.4-7.4); Neutrophils % 86.6 % (38.7-73.9); Platelet Count 280 T/CUMM (130-400); Red Blood Count 4.84 MC/CUMM (3.8-5.5); Red Cell Distribution Width 14.1 % (9.3-17.3); White Blood Count 10.5 T/CUMM (4-12)
[2017-02-02] MEDS ORDERED: hydrALAZINE 20 MG/1 ML VIAL ONE (04:34)
[2017-02-02 04:38] LABS: Apearance,Urine CLEAR (Clear); Bilirubin,Urine Negative (Negative); Blood, Urine Negative (Negative); Glucose,Urine (UA) 150 mg/dL (Negative); Ketones,Urine Negative (Negative); Mucus,Urine Occasional /LPF (Occasional); Nitrite,Urine Negative (Negative); Protein,Urine Negative; RBC,Urine 2 /HPF (0-4); Squamous Epithelial Cell,Urine Occasional /HPF (0-10); Urine Color Yellow (Yellow); Urine Specific Gravity 1.016 (1.001-1.035); Urine Urobilinogen < 2.0 EU/DL (0.2-1.0); WBC,Urine 1 /HPF (0-6)
[2017-02-02] MEDS ORDERED: hydrALAZINE 20 MG/1 ML VIAL IV STA (04:39)
[2017-02-02 04:44] LABS: Albumin 4.6 G/DL (3.4-5.0); Bilirubin,Total 0.7 MG/DL (0.2-1.0); Calcium 9.3 MG/DL (8.5-10.1); Magnesium 1.8 MG/DL (1.8-2.4); Osmolality,Calculated 281.7 MOS/KG (273-304); Potassium 3.4 MMOL/L (3.5-5.1); Total Protein 7.6 G/DL (6.4-8.3); Troponin I Only 0.043 NG/ML (0.00-0.045)
[2017-02-02] MEDS ORDERED: MORPHINE 2 MG/1 ML SYRINGE IV STA (05:18)
[2017-02-02] MEDS ORDERED: MORPHINE 2 MG/1 ML SYRINGE ONE (05:18)
[2017-02-02] MEDS ORDERED: HYDROmorphone 2 MG/1 ML VIAL ONE (06:03)
[2017-02-02] MEDS ORDERED: HYDROmorphone 2 MG/1 ML VIAL IV STA (06:03)
[2017-02-02] MEDS ORDERED: NICOTINE 21 MG/24 HR PATCH TRANSDERM PRN (06:04)
[2017-02-02] MEDS ORDERED: BISACODYL 5 MG TABLET PO PRN (06:04)
[2017-02-02] MEDS ORDERED: ACETAMINOPHEN 325 MG TABLET PO PRN (06:04)
--- NOTE | 2017-02-02 06:07 | Hospitalist History & Physical ---
Assessment and Plan - Time spent with patient Time spent discussing smoking cessation with patient: 3 to 10 minutes (1) Acute on chronic pancreatitis Status: Acute Current Visit: Yes (2) History of alcohol abuse Status: Acute Current Visit: Yes (3) Intractable abdominal pain Status: Acute Current Visit: Yes (4) Intractable nausea and vomiting Status: Acute Current Visit: Yes Qualifiers: Vomiting type: unspecified Qualified Code(s): R11.2 - Nausea with vomiting , unspecified (5) Uncontrolled hypertension Status: Acute Current Visit: Yes (6) Smoker Status: Acute Assessment and plan: Plan: Largely supportive care with IV pain medication and nausea medicine, and gentle hydration. Continue blood pressure control with home medicines Start clear liquids, advance as tolerated. Consider CTA of the abdomen, as outlined in her recent CT abdomen and pelvis report from December Current Visit: Yes History of Present Illness Chief complaint: Severe abdominal pain History of present illness: Ms. Lopez is a 51 year old female with a history of chronic pancreatitis due to chronic alcohol abuse, in remission since October 2016. She also has hypertension, hypertriglyceridemia and chronic pain due to ankle fracture and "back problems," for which she sees Dr. Roque Vaughn. She comes in tonight with diffuse abdominal pain which radiates to the back. Pain is worst in the mid right abdomen, rated an 8 out of 10 at worst, relieved with pain medications given in the ER. She states this is similar to her usual "flare-up," of pancreatitis. She states she ate a heavy meal yesterday and did not feel well afterwards, around midnight tonight she began having intense pain. She did have associated nausea and vomiting. No fevers chills sweats, shortness of breath or chest pain. Her symptoms are constant and severe. Additionally her blood pressure was markedly elevated in the ER, which has responded fairly well to a dose of hydralazine, and also likely pain medicine. Home Medications Medication Instructions Recorded Confirmed Type Oxycodone HCl/Acetaminophen 10 mg PO TID 12/11/16 02/02/17 History [Percocet 10-325 mg Tablet] Escitalopram [Lexapro] 20 mg PO DAILY #30 tablet 12/16/16 02/02/17 Rx Fenofibrate [Tricor] 160 mg PO DAILY #30 tablet 12/16/16 02/02/17 Rx Losartan [Cozaar] 100 mg PO DAILY #60 tablet 12/16/16 02/02/17 Rx Pantoprazole Tab [Protonix Tab] 40 mg PO DAILY #30 tablet 12/16/16 02/02/17 Rx cloNIDine TAB [Catapres Tab] 0.2 mg PO TID #180 tablet 12/16/16 02/02/17 Rx Allergies Allergy/AdvReac Type Severity Reaction Status Date / Time No Known Allergies Allergy Verified 02/02/17 03:42 Medical,Surgical,& Family Hx - Medical History Cardio: History of: Hypertension Psychological: History of: Anxiety Disorders, Depression, Psychiatric/Substance Abuse Tx (history of alcohol use) Neurology: No history of: Brain Aneurysm, Cerebral Hemorrhage, Cerebrovascular Accident , Cerebral Palsy, Dementia, Migraine, Multiple Sclerosis, Parkinson's Disease, Peripheral Neuropathy, Seizures, TIA, Vertigo, Neurologocal Cancer HEENT: History of: HEENT Problems (sinus problems) Endocrine: History of: Dyslipidemia Respiratory: History of: Obstructive Sleep Apnea Gastrointestinal: History of: GERD, Pancreatitis, Polyps, GI Problems (Hiatal Hernia-- History of alcoholism) Musculoskeletal: History of: Back/Neck Problems (chronic back pain), Herniated Disk (3 in neck) Reproductive: No history of: Reproductive Problems (3 c sections) Other: No history of: Cancer - Surgical History Neurologic Surgeries: Patient denies: Brain Aneurysm, Cerebral Hemorrhage, Neurologic Surgery Abdominal Surgeries: Surgical HX of: Abdominal Surgery (Exploratory lap 1981), Cholecystectomy, Colonoscopy (11/16/14) Reproductive Surgeries: Surgical HX of;: Hysterectomy (2004) - Family History Family History: Reports;: Family Heart Disease (mother had 2 surgeries), Family Hypertension (mother, brother, and sister) - Social History Smoking Status: Current every day smoker Have you smoked in the last 12 months: Yes Time spent discussing smoking cessation with patient: 3 to 10 minutes Frequency of Alcohol Use: None (Quit in October 2016) Type of Drug Use: None Marital Status: Functional capacity: independent ambulation Review of systems: A 12 point review of systems is negative except as specified in the HPI Exam - Constitutional Vitals: Period Temp Pulse Resp BP Sys/Boyce Pulse Ox Last 24 Hr 97.3 F 98-114 20-20 179-218/73-134 97-100 Exam: EXAM: CONSTITUTIONAL: non toxic, mild distress due to abdominal pain HEENT: NC, AT, OP benign, VAN, EOMI CV: Tachycardic, regular, 2/6 systolic ejection murmur RESP: clear B/L, no w/r/r GI: abd soft, + bowel sounds, significant tenderness to palpation of the right and midabdomen, less tender on the left. INTEGUMENTARY: no lesions or rash EXTREMITIES: no c/c/e NEURO: no focal deficits PSYCH: Awake, alert, oriented Results - Labs CBC & BMP: 02/02/17 03:47 02/02/17 03:47 Lab Results: I have reviewed the past 24 hour labs - Diagnostic Findings Procedure: Abdominal x-ray: image reviewed by me
[2017-02-02] MEDS ORDERED: ENOXAPARIN 40 MG/0.4 ML SYRINGE SUBCUT SCH (06:30)
[2017-02-02] MEDS: SODIUM CHLORIDE 0.9% 1,000 ML IV SCH ×3 (07:21→22:44)
--- NOTE | 2017-02-02 07:29 | XRay Report ---
Single view of the abdomen. Indication: Generalized abdominal pain. Comparison: The October 12, 2016. Surgical clips are noted in the right upper quadrant. There has been a previous vertebroplasty at T11. Surgical skin karen project over the lower abdomen. No intra-abdominal organomegaly. No abnormal calcifications over the renal outlines. Bowel gas pattern is normal. Multiple phleboliths again seen. Degenerative changes of the spinal column. Impression: No acute abnormality. PROCEDURE INTERPRETED AT [facility] DEPARTMENT OF RADIOLOGY Final Report Signed by: Dr. Lauren Bajwa
[2017-02-02] MEDS: HYDROmorphone 2 MG/1 ML VIAL IV PRN ×5 (09:01→21:12)
[2017-02-02] MEDS: cloNIDine 0.1 MG TABLET PO SCH ×3 (10:16→22:43)
[2017-02-02] MEDS: LOSARTAN 50 MG TABLET PO SCH (10:16)
[2017-02-02] MEDS: ESCITALOPRAM 10 MG TABLET PO SCH (10:16)
[2017-02-02] MEDS: PANTOPRAZOLE 40 MG TABLET PO SCH (10:16)
[2017-02-02] MEDS: FENOFIBRATE 160 MG TABLET PO SCH (10:16)
[2017-02-02] MEDS: oxyCODONE/ACETAMINOPHEN 5-325 MG TABLET PO SCH ×3 (10:16→22:42)
[2017-02-02] MEDS: ENOXAPARIN 40 MG/0.4 ML SYRINGE SUBCUT SCH (12:06)
[2017-02-02] MEDS: ONDANSETRON 4 MG/2 ML VIAL IV PRN ×2 (12:07→21:13)
[2017-02-03] MEDS: HYDROmorphone 2 MG/1 ML VIAL IV PRN ×8 (00:15→23:05)
[2017-02-03 04:10] LABS: Basophils % 0.4 % (0.0-0.8); Eosinophils # 0.1 10*3/uL (0.0-0.87); Eosinophils % 1.4 % (0.00-10.9); Hematocrit 34.1 VOL% (35.7-47.0); Hemoglobin 10.9 GM/DL (12.0-16.0); Immature Granulocytes % 0.4 %; Immature Granulocytes Absolute 0.02 #; Lymphocytes # 1.1 10*3/uL (1.4-4.0); Lymphocytes % 21.4 % (21.3-54.2); Mean Corpuscular Hemoglobin 31 PG (27-34); Mean Corpuscular Volume 96.6 FL (87-102); Mean Platelet Volume 10.9 FL (9.6-12.0); Monocytes # 0.3 10*3/uL (0.11-0.8); Monocytes % 5.1 % (1.7-12.7); Neutrophils # 3.5 10*3/uL (1.4-7.4); Neutrophils % 71.3 % (38.7-73.9); Platelet Count 159 T/CUMM (130-400); Red Blood Count 3.53 MC/CUMM (3.8-5.5); Red Cell Distribution Width 14.3 % (9.3-17.3)
[2017-02-03 04:49] LABS: Albumin 3.2 G/DL (3.4-5.0); Bilirubin,Total 0.6 MG/DL (0.2-1.0); Potassium 3.4 MMOL/L (3.5-5.1); Total Protein 5.3 G/DL (6.4-8.3)
[2017-02-03 04:51] LABS: Risk Ratio 3.89; VLDL CHOLESTEROL 50.2 MG/DL
[2017-02-03] MEDS: SODIUM CHLORIDE 0.9% 1,000 ML IV SCH ×2 (06:28→18:47)
[2017-02-03] MEDS ORDERED: POTASSIUM CHLORIDE 20 MEQ TABLET PO ONE (07:20)
--- NOTE | 2017-02-03 08:28 | Hospitalist Progress Note ---
Assessment and Plan (1) Acute on chronic pancreatitis Status: Acute Assessment and plan: Continue medical management of acute on chronic pancreatitis with IV fluids and IV pain medications. Bowel rest with liquid diet. Follow-up a.m. labs. Current Visit: Yes (2) Hypertriglyceridemia Status: Acute Assessment and plan: Continue TriCor. Current Visit: Yes (3) Hypokalemia Status: Acute Assessment and plan: Replacement ordered. Current Visit: No Hospitalist: Subjective Interval history: Patient seen and examined. She complains of abdominal pain throughout the evening and this morning. She tolerated clear liquid diet and wants to be advanced to full liquids. Her enzymes and labs were reviewed and are improving. Potassium replacement ordered. Exam - Constitutional Vitals: Period Temp Pulse Resp BP Sys/Boyce Pulse Ox Last 24 Hr 96.6 F-98.9 F 71-95 18-20 97-153/62-98 96-99 Exam: Constitutional System: Mild distress. No tremulousness. Head: Normocephalic, atraumatic. Ears, Nose and Throat System: No pain or tenderness. No epistaxis or discharge Eyes System: Pupils equal, round, and reactive. Extraocular muscles intact. Neck: Supple, without adenopathy, No jugular venous distention. No thyromegaly, neck mass, or prior surgery apparent. Respiratory System: Chest clear to auscultation. Cardiovascular System: Heart with regular rate and rhythm. No murmur. GI System: Abdomen soft, moderately tender in the epigastric area. Normo active bowel sounds present. Musculoskeletal System: limbs with no pedal edema. Full distal pulses. Neurological System: No discernable sensory deficit. No aphasia Psychiatric System: Conversation is rational Results - Labs CBC & BMP: 02/03/17 03:33 02/03/17 03:33 Lab Results: I have reviewed the past 24 hour labs
[2017-02-03] MEDS: LOSARTAN 50 MG TABLET PO SCH (09:24)
[2017-02-03] MEDS: cloNIDine 0.1 MG TABLET PO SCH ×3 (09:24→21:30)
[2017-02-03] MEDS: PANTOPRAZOLE 40 MG TABLET PO SCH (09:27)
[2017-02-03] MEDS: FENOFIBRATE 160 MG TABLET PO SCH (09:27)
[2017-02-03] MEDS: ENOXAPARIN 40 MG/0.4 ML SYRINGE SUBCUT SCH (09:28)
[2017-02-03] MEDS: ESCITALOPRAM 10 MG TABLET PO SCH (09:28)
[2017-02-03] MEDS: oxyCODONE/ACETAMINOPHEN 5-325 MG TABLET PO SCH ×3 (11:20→21:30)
[2017-02-03] MEDS ORDERED: ALBUTEROL/IPRATROPIUM 3 ML NEB RESP TX ONE (22:07)
[2017-02-03] MEDS ORDERED: ALBUTEROL/IPRATROPIUM 3 ML NEB RESP TX PRN (22:08)
--- NOTE | 2017-02-03 22:42 | XRay Report ---
Exam: XR chest 2V Date: 02/03/2017 10:11 PM Indication: Shortness of breath Comparison: 11/14/2016 Technical: PA lateral Findings: Mild prominence the cardiac silhouette. No obvious infiltrate or effusion. Previous vertebroplasty in the lower thoracic spine at approximately T11. Prior cholecystectomy clips are present. Mild arthritic change of the shoulders bilaterally at the AC joints. Impression: 1. Cardiomegaly without acute cardiopulmonary pathology 2. Prior cholecystectomy and previous vertebroplasty PROCEDURE INTERPRETED AT [facility] DEPARTMENT OF RADIOLOGY Final Report Signed by: Dr. Tien Trujillo
[2017-02-04] MEDS: HYDROmorphone 2 MG/1 ML VIAL IV PRN ×4 (02:45→11:37)
[2017-02-04 05:59] LABS: Potassium 3.9 MMOL/L (3.5-5.1)
[2017-02-04 07:09] VITALS: BP 125/90
[2017-02-04] MEDS: ENOXAPARIN 40 MG/0.4 ML SYRINGE SUBCUT SCH (08:57)
[2017-02-04] MEDS: cloNIDine 0.1 MG TABLET PO SCH (08:58)
[2017-02-04] MEDS: LOSARTAN 50 MG TABLET PO SCH (08:58)
[2017-02-04] MEDS: oxyCODONE/ACETAMINOPHEN 5-325 MG TABLET PO SCH (08:58)
[2017-02-04] MEDS: ESCITALOPRAM 10 MG TABLET PO SCH (08:58)
[2017-02-04] MEDS: FENOFIBRATE 160 MG TABLET PO SCH (08:59)
[2017-02-04] MEDS: PANTOPRAZOLE 40 MG TABLET PO SCH (08:59)
--- NOTE | 2017-02-04 09:33 | Discharge Summary ---
Hospital Course - Hospital Course Hospital Course: Ms. Lopez is a 51-year-old white female with a history of acute on chronic pancreatitis who was admitted to the hospital with abdominal pain consistent with pancreatitis and elevated lipase. She was treated with IV pain medications , bowel rest, and IV fluid hydration. She has improved during the course of the hospitalization and her diet has been advanced from clears to full regular. Her pain has improved and she is ready for discharge home. Her amylase lipase and potassium have returned to normal. She also has a history of hyperlipidemia and hypertriglyceridemia. Her triglycerides have improved from 700s into the 200s. Her total cholesterol is under 200. She should continue her home medications including TriCor. She quit drinking alcohol in October 2016 and is doing well with that. I have instructed her to eat a low-fat diet and to continue to take her outpatient medications. Her home med list was reviewed and reconciled. A new prescription for Phenergan was given as needed for nausea. The patient is a full code. - Time spent with patient Time with patient DS: Greater than 30 minutes (Total discharge time for this patient, including [id number] time, clinical documentation, medication reconciliation, and discharge planning was 35 minutes.) Diagnosis - Discharge Diagnosis (1) Acute on chronic pancreatitis Status: Acute (2) Hypertriglyceridemia Status: Chronic (3) Hypokalemia Status: Resolved Discharge Plan - Discharge Data Disposition: Disch To Home/Self Care Condition at Discharge: Stable Discharge Diet: advance to your usual diet Activity: resume usual activities as tolerated Hygiene: no restrictions Weight Bearing at Discharge: full weight bearing Contact your physician if you experience:: fever over 101, Nausea/Vomiting, pain uncontrolled by pain medications - Discharge Medications New Promethazine Tab [Phenergan Tab] 25 mg PO Q4H PRN #30 tablet PRN Reason: Nausea/Vomiting Continue Oxycodone HCl/Acetaminophen [Percocet 10-325 mg Tablet] 10 mg PO TID Fenofibrate [Tricor] 160 mg PO DAILY #30 tablet Pantoprazole Tab [Protonix Tab] 40 mg PO DAILY #30 tablet Losartan [Cozaar] 100 mg PO DAILY #60 tablet cloNIDine TAB [Catapres Tab] 0.2 mg PO TID #180 tablet Escitalopram [Lexapro] 20 mg PO DAILY #30 tablet - Follow Up or Referral - Forms/Instructions Exam - Constitutional Vitals: Period Temp Pulse Resp BP Sys/Boyce Pulse Ox Last 24 Hr 96.6 F-98.7 F 67-83 16-75 101-134/61-90 97-100 General appearance: no acute distress Exam: Constitutional System: No distress. No tremulousness. Head: Normocephalic, atraumatic. Ears, Nose and Throat System: No pain or tenderness. No epistaxis or discharge Eyes System: Pupils equal, round, and reactive. Extraocular muscles intact. Neck: Supple, without adenopathy, No jugular venous distention. No thyromegaly, neck mass, or prior surgery apparent. Respiratory System: Chest clear to auscultation. Cardiovascular System: Heart with regular rate and rhythm. No murmur. GI System: Abdomen soft, nontender. Normo active bowel sounds present. Musculoskeletal System: limbs with no pedal edema. Full distal pulses. Neurological System: No discernable sensory deficit. No aphasia Psychiatric System: Conversation is rational Discharge Results Labs on day of discharge: Labs from last 24 hours 02/04/17 05:20 Sodium 143 Potassium 3.9 Chloride 110 H Carbon Dioxide 27 Anion Gap 9.9 BUN 5 L Creatinine 0.60 GFR Calculation 113 BUN/Creatinine Ratio 8.00 Glucose 111 H Calculated Osmolality 282.0 Calcium 8.0 L Lipase 241.0 D DS: Provider Date of admission: 02/02/17 06:04 Primary care physician: . No PCP Attending physician on admission: Tobi Echols MD Discharging clinician: Tobi Echols MD Expected date of discharge: 02/04/17
== END 2017-02-04 13:30 | disposition home or self-care (01) | DRG 440 ==
LOC: N.ED 03:34 → N.EDINP 06:04 → N.OB 06:21
PROVIDERS: ADMIT Family Medicine; ATTEND Family Medicine

== ENCOUNTER 2017-03-30 05:22 | Inpatient (IN) ==
--- NOTE | 2017-03-30 05:42 | Emergency Department Note ---
Arrival - Arrival ED Nursing Triage Note: Patient to triage with c/o epigastric ABD pain, that she states is "flare up of pancreatitis, that has worsened throughout the night. c/o nausea. denies recent alcohol use. 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 She has already had her gallbladder removed. Told on a recent hospital stay that her triglycerides were high. She has had nausea vomiting and midepigastric pain since yesterday. She reports regular bowel movements and flatus. (Sal Butler) Allergies/Adverse Reactions: Allergies Allergy/AdvReac Type Severity Reaction Status Date / Time No Known Allergies Allergy Verified 03/30/17 05:30 Home Medications: Home Medications Medication Instructions Recorded Confirmed Type Oxycodone HCl/Acetaminophen 10 mg PO TID 12/11/16 03/30/17 History [Percocet 10-325 mg Tablet] Escitalopram [Lexapro] 20 mg PO DAILY #30 tablet 12/16/16 03/30/17 Rx Fenofibrate [Tricor] 160 mg PO DAILY #30 tablet 12/16/16 03/30/17 Rx Losartan [Cozaar] 100 mg PO DAILY #60 tablet 12/16/16 03/30/17 Rx cloNIDine TAB [Catapres Tab] 0.2 mg PO TID #180 tablet 12/16/16 03/30/17 Rx Promethazine Tab [Phenergan Tab] 25 mg PO Q4H PRN #30 tablet 02/04/17 03/30/17 Rx Esomeprazole Magnesium [Nexium] 1 capsule PO DAILY 03/30/17 03/30/17 History Review of System - Review of System Constitutional: Present: as per HPI Eyes: Present: as per HPI Head/Ears/Nose/Throat: Present: see HPI Respiratory: Present: as per HPI Cardiovascular: Present: as per HPI Gastrointestinal: Present: as per HPI Genitourinary female: Present: as per HPI Musculoskeletal: Present: as per HPI Skin: Present: as per HPI Neurological: Present: as per HPI Psychiatric: Present: as per HPI Endocrine: Present: as per HPI Hematological/Lymphatic: Present: as per HPI Allergic/Immunologic: Present: as per HPI <Sal Butler - Last Filed: 03/30/17 05:40> Medical,Surgical,& Family Hx - Medical History Cardio: History of: Hypertension Psychological: History of: Anxiety Disorders, Depression, Psychiatric/Substance Abuse Tx (history of alcohol use) Neurology: No history of: Brain Aneurysm, Cerebral Hemorrhage, Cerebrovascular Accident , Cerebral Palsy, Dementia, Migraine, Multiple Sclerosis, Parkinson's Disease, Peripheral Neuropathy, Seizures, TIA, Vertigo, Neurologocal Cancer HEENT: History of: HEENT Problems (sinus problems) Endocrine: History of: Dyslipidemia Respiratory: History of: Obstructive Sleep Apnea Gastrointestinal: History of: GERD, Pancreatitis, Polyps, GI Problems (Hiatal Hernia-- History of alcoholism) Musculoskeletal: History of: Back/Neck Problems (chronic back pain), Herniated Disk (3 in neck) Reproductive: No history of: Reproductive Problems (3 c sections) Other: No history of: Cancer - Surgical History Neurologic Surgeries: Patient denies: Brain Aneurysm, Cerebral Hemorrhage, Neurologic Surgery Abdominal Surgeries: Surgical HX of: Abdominal Surgery (Exploratory lap 1981), Cholecystectomy, Colonoscopy (11/16/14) Reproductive Surgeries: Surgical HX of;: Hysterectomy (2004) - Family History Family History: Reports;: Family Heart Disease (mother had 2 surgeries), Family Hypertension (mother, brother, and sister) - Social History Smoking Status: Current every day smoker Frequency of Alcohol Use: None Type of Drug Use: None <Sal Butler - Last Filed: 03/30/17 05:40> Exam - General General appearance: alert, in no apparent distress - Head Head exam: Present: atraumatic, normocephalic - Eye Eye exam: Present: normal appearance, PERRL, EOMI. Absent: scleral icterus - ENT ENT exam: Present: normal exam, normal oropharynx - Neck Neck exam: Present: normal inspection, full ROM - Chest Chest inspection: Present: normal inspection, symmetric chest wall rise - Respiratory Respiratory exam: Present: normal lung sounds bilaterally. Absent: accessory muscle use, prolonged expiratory phase - Cardiovascular Cardiovascular exam: Present: regular rate, normal rhythm - Abdominal Exam Abdominal exam: Present: soft, tenderness (Midepigastric tenderness with no rebound), normal bowel sounds. Absent: distention - Rectal Exam Rectal exam: Present: deferred - Female exam ED: Present: deferred - Extremities Exam Extremities exam: Present: normal inspection - Back Exam Back exam: Present: normal inspection - Neurological Exam Neurological exam: Present: alert, oriented X3 - Psychiatric Psychiatric exam: Present: normal affect, normal mood - Skin Skin exam: Present: warm, dry <Sal Butler - Last Filed: 03/30/17 05:40> Vital Signs: Vital Signs Temperature 97.3 F L 03/30/17 05:25 Pulse Rate 87 03/30/17 05:25 Respiratory Rate 18 03/30/17 05:25 Blood Pressure 213/144 03/30/17 05:25 O2 Sat by Pulse Oximetry 99 03/30/17 05:25 Course <Sal Butler - Last Filed: 03/30/17 05:40> - Consultations Time: 06:59 <Yomi Lakhani - Last Filed: 03/30/17 07:05> Course Narrative: Patient was given IV fluids, Dilaudid, Zofran, and Apresoline in the emergency department. (Yomi Lakhani) - Consultations Consultation #1: Discussed with hospitalist. Patient will be admitted to their service. (Yomi Lakhani) Results <Sal Butler - Last Filed: 03/30/17 05:40> - Labs CBC & BMP: 03/30/17 05:41 03/30/17 05:41 Lab Results: I have reviewed the patients labs - Diagnostic Findings Procedure: Abdominal x-ray: image reviewed by me (Nonspecific gas pattern, no free air, gas in the rectum.) <Yomi Lakhani - Last Filed: 03/30/17 07:05> - Labs Labs: Laboratory Tests 03/30/17 05:41 Urine Test Negative Laboratory Tests 03/30/17 03/30/17 03/30/17 05:41 05:41 05:41 Lipase 1143.0 H Urine pH 6.0 Ur Specific [place] 1.012 Urine RBC 3 Urine WBC 10 Urine Opiates Screen Positive H Ur Barbiturates Screen Negative Ur Phencyclidine Scrn Negative U Amphetamine/Methamph Negative U Benzodiazepines Scrn Negative U Cocaine Metab Screen Negative U Cannabinoids Screen Negative (Yomi Lakhani) Disposition <Sal Butler - Last Filed: 03/30/17 05:40> Case discussed with: patient Time of Disposition: 07:05 <Yomi Lakhani - Last Filed: 03/30/17 07:05> Clinical Impression: Acute on chronic pancreatitis, Essential hypertension, Pyuria Disposition: Still a Patient Condition: Stable
[2017-03-30] MEDS ORDERED: hydrALAZINE 20 MG/1 ML VIAL IV STA ×2 (05:53→07:08)
[2017-03-30] MEDS ORDERED: hydrALAZINE 20 MG/1 ML VIAL ONE ×2 (05:53→07:01)
[2017-03-30 06:00] LABS: Basophils % 0.3 % (0.0-0.8); Eosinophils # 0.1 10*3/uL (0.0-0.87); Eosinophils % 1.2 % (0.00-10.9); Hematocrit 41.5 VOL% (35.7-47.0); Hemoglobin 14.1 GM/DL (12.0-16.0); Immature Granulocytes % 0.3 %; Immature Granulocytes Absolute 0.02 #; Lymphocytes # 1.8 10*3/uL (1.4-4.0); Lymphocytes % 23.9 % (21.3-54.2); Mean Corpuscular Hemoglobin 31 PG (27-34); Mean Platelet Volume 10.9 FL (9.6-12.0); Monocytes # 0.4 10*3/uL (0.11-0.8); Monocytes % 5.3 % (1.7-12.7); Neutrophils # 5.1 10*3/uL (1.4-7.4); Platelet Count 230 T/CUMM (130-400); Red Blood Count 4.56 MC/CUMM (3.8-5.5); Red Cell Distribution Width 13.9 % (9.3-17.3); White Blood Count 7.4 T/CUMM (4-12)
[2017-03-30 06:15] LABS: Barbiturates Screen,Urine Negative (Negative); Benzodiazepines Screen,Urine Negative (Negative); Cannabinoid Screen,Urine Negative (Negative); Opiate Screen,Urine Positive (Negative); Phencyclidine Screen,Urine Negative (Negative)
[2017-03-30 06:29] LABS: Albumin 4.2 G/DL (3.4-5.0); Bilirubin,Direct 0.1 MG/DL (0.0-0.20); Bilirubin,Total 0.4 MG/DL (0.2-1.0); Osmolality,Calculated 276.7 MOS/KG (273-304); Potassium 3.7 MMOL/L (3.5-5.1)
--- NOTE | 2017-03-30 06:31 | XRay Report ---
XR abdomen 2V Indication: Abdominal pain. Comparison: Abdominal series 02/02/2017 Technique: Flat and erect images of the abdomen were performed. Findings: Lung bases are clear. No organomegaly suggested. The bowel gas pattern demonstrates no significant abnormality. Bony structures as well as soft tissues demonstrate no evidence of significant pathology. Surgical absence of the gallbladder is demonstrated. Vertebroplasty at T11 is demonstrated. Fascial clips are present within the midline of the lower abdomen and pelvis. Impression: 1. No active process is suggested within the abdomen or pelvis. 03/30/2017 6:28 AM PROCEDURE INTERPRETED AT [facility] DEPARTMENT OF RADIOLOGY Final Report Signed by: Dr. Eugenio Rios
[2017-03-30 06:36] LABS: Apearance,Urine Slightly Hazy (Clear); Bilirubin,Urine Negative (Negative); Blood, Urine Negative (Negative); Glucose,Urine (UA) Negative (Negative); Ketones,Urine Negative (Negative); Nitrite,Urine Negative (Negative); Protein,Urine Negative; RBC,Urine 3 /HPF (0-4); Squamous Epithelial Cell,Urine Occasional /HPF (0-10); Urine Color Yellow (Yellow); Urine Specific Gravity 1.012 (1.001-1.035); Urine Urobilinogen < 2.0 EU/DL (0.2-1.0); WBC,Urine 10 /HPF (0-6)
[2017-03-30] MEDS ORDERED: SODIUM CHLORIDE 0.9% 1,000 ML IV STA (06:53)
[2017-03-30] MEDS ORDERED: ONDANSETRON 4 MG/2 ML VIAL ONE (06:58)
[2017-03-30] MEDS ORDERED: HYDROmorphone 2 MG/1 ML VIAL ONE (06:58)
[2017-03-30] MEDS ORDERED: cefTRIAXone 1,000 MG in SODIUM CHLORIDE 0.9% 100 ML IV STA (07:05)
[2017-03-30] MEDS ORDERED: ONDANSETRON 4 MG/2 ML VIAL IV STA (07:08)
[2017-03-30] MEDS ORDERED: HYDROmorphone 2 MG/1 ML VIAL IV STA (07:08)
[2017-03-30] MEDS ORDERED: cefTRIAXone 1,000 MG VIAL ONE (07:11)
[2017-03-30] MEDS ORDERED: guaiFENesin/DM ER 600-30 MG TABLET PO PRN (07:33)
[2017-03-30] MEDS ORDERED: DOCUSATE SODIUM 100 MG CAPSULE PO PRN (07:33)
[2017-03-30] MEDS ORDERED: ACETAMINOPHEN 325 MG TABLET PO PRN ×2 (07:33)
[2017-03-30] MEDS ORDERED: PROMETHAZINE 25 MG/1 ML VIAL IM PRN (07:33)
[2017-03-30] MEDS ORDERED: NICOTINE 21 MG/24 HR PATCH TRANSDERM PRN (07:33)
[2017-03-30] MEDS ORDERED: diphenhydrAMINE CAP 25 MG CAPSULE PO PRN (07:33)
--- NOTE | 2017-03-30 07:52 | Hospitalist History & Physical ---
<Karen Ann - Last Filed: 03/30/17 07:44> Assessment and Plan - Time spent with patient Time spent with patient: Greater than 30 minutes (1) UTI (urinary tract infection) Status: Acute Assessment and plan: Ms. Lopez is a 52-year-old white female with history of hypertension, chronic pancreatitis, hyperlipidemia, and chronic pain admitted by the hospitalist service with acute on chronic pancreatitis with intractable nausea vomiting and a UTI. Patient will be started on IV fluids, pain and nausea control, and given n.p.o. diet except for ice chips and sips with meds. Patient will be started on antibiotics for her urinary tract infection and await culture results. Patient's blood pressures are elevated in the ED but they are coming down nicely with the meds given there. We will go ahead and restart her home meds that she can take with sips of water. Patient is on Percocets 3 times daily for her chronic pain, these will be restarted and Dilaudid will be added as needed for breakthrough pain. Patient is also having some sinus pressure so we will give her some Zyrtec and Flonase as needed. Her blood sugars are borderline so we will check these before meals and at bedtime and monitor. Will check a urine alcohol along with lipid panel and recheck some labs in the morning. Dr. Cerrato will see and examine patient and further recommendations to follow. Current Visit: Yes (2) Acute on chronic pancreatitis Status: Acute Current Visit: Yes (3) History of alcohol abuse Status: Acute Current Visit: No (4) Intractable nausea and vomiting Status: Acute Current Visit: No Qualifiers: Vomiting type: unspecified Qualified Code(s): R11.2 - Nausea with vomiting , unspecified (5) Smoker Status: Acute Current Visit: No (6) Abdominal pain Status: Chronic Current Visit: No Qualifiers: Abdominal location: left upper quadrant Qualified Code(s): R10.12 - Left upper quadrant pain (7) Chronic pain syndrome Status: Chronic Current Visit: No (8) Hypertriglyceridemia Status: Chronic Current Visit: No (9) anxiety Status: Chronic Current Visit: No History of Present Illness Chief complaint: Abdominal pain History of present illness: Ms. Lopez is a 52-year-old white female with history of hypertension, hyperlipidemia, alcohol abuse, chronic pain presenting to the ED with a 2 day history of increasing abdominal pain with nausea and vomiting. Patient rates the pain 8/10, constant and unrelenting. She states that it radiates through to the back and is associated with nausea and vomiting. Patient has had monthly admissions since October with chronic pancreatitis. She states she has not had any alcohol since October 2016. She was diagnosed with high triglycerides and she is on medicine for that. Her last triglyceride was 251 in her January admission. She has also had her gallbladder removed approximately 10 years ago. On today's admission patient is flushed with elevated blood pressure. This seems to be coming down with medicines given in the ED. She also has a urinary tract infection with large leukocytes that is asymptomatic. Her abdomen is soft and tender throughout. Her lipase is 1143. The remainder of her labs are fairly normal. Her toxicology screen shows positive for opiates but she does take Percocet regularly for chronic back and left ankle pain. She sees Dr. Vaughn for this. Urine drug screen was not done. Patient denies headache, dysphasia, chest pain, shortness of breath, constipation, or lower extremity edema. After discussion with the ED physician Dr. Lakhani and Dr. Cerrato the admitting hospitalist, it was agreed patient would be admitted for evaluation and treatment. Home Medications Medication Instructions Recorded Confirmed Type Oxycodone HCl/Acetaminophen 10 mg PO TID 12/11/16 03/30/17 History [Percocet 10-325 mg Tablet] Escitalopram [Lexapro] 20 mg PO DAILY #30 tablet 12/16/16 03/30/17 Rx Fenofibrate [Tricor] 160 mg PO DAILY #30 tablet 12/16/16 03/30/17 Rx Losartan [Cozaar] 100 mg PO DAILY #60 tablet 12/16/16 03/30/17 Rx cloNIDine TAB [Catapres Tab] 0.2 mg PO TID #180 tablet 12/16/16 03/30/17 Rx Promethazine Tab [Phenergan Tab] 25 mg PO Q4H PRN #30 tablet 02/04/17 03/30/17 Rx Esomeprazole Magnesium [Nexium] 1 capsule PO DAILY 03/30/17 03/30/17 History Allergies Allergy/AdvReac Type Severity Reaction Status Date / Time No Known Allergies Allergy Verified 03/30/17 05:30 Medical,Surgical,& Family Hx - Medical History Cardio: History of: Hypertension Psychological: History of: Anxiety Disorders, Depression, Psychiatric/Substance Abuse Tx (history of alcohol use) Neurology: No history of: Brain Aneurysm, Cerebral Hemorrhage, Cerebrovascular Accident , Cerebral Palsy, Dementia, Migraine, Multiple Sclerosis, Parkinson's Disease, Peripheral Neuropathy, Seizures, TIA, Vertigo, Neurologocal Cancer HEENT: History of: HEENT Problems (sinus problems) Endocrine: History of: Dyslipidemia Respiratory: History of: Obstructive Sleep Apnea Gastrointestinal: History of: GERD, Pancreatitis, Polyps, GI Problems (Hiatal Hernia-- History of alcoholism) Musculoskeletal: History of: Back/Neck Problems (chronic back pain), Herniated Disk (3 in neck) Reproductive: No history of: Reproductive Problems (3 c sections) Other: No history of: Cancer - Surgical History Neurologic Surgeries: Patient denies: Brain Aneurysm, Cerebral Hemorrhage, Neurologic Surgery Abdominal Surgeries: Surgical HX of: Abdominal Surgery (Exploratory lap 1981), Cholecystectomy, Colonoscopy (11/16/14) Reproductive Surgeries: Surgical HX of;: Hysterectomy (2004) Orthopedic Surgeries: Surgical HX of;: Orthopedic Surgery - Family History Family History: Reports;: Family Heart Disease (mother had 2 surgeries), Family Hypertension (mother, brother, and sister) - Social History Smoking Status: Current every day smoker Have you smoked in the last 12 months: Yes Frequency of Alcohol Use: None Type of Drug Use: Opiates Marital Status: Lives With:: Children Functional capacity: independent ambulation Review of systems: A complete 10 system review of systems was obtained and pertinent positives and negatives per HPI Exam - Constitutional Vitals: Period Temp Pulse Resp BP Sys/Boyce Pulse Ox Last 24 Hr 97.3 F-97.3 F 87-87 18-18 154-213/95-144 99 Exam: Constitutional System: Mild distress. No tremulousness. Head: Normocephalic, atraumatic. Skin is flushed and warm Ears, Nose and Throat System: No evidence of Otitis or Mastoiditis. No epistaxis or discharge Eyes System: Pupils equal, round, and reactive. Extraocular muscles intact. Neck: Supple, without adenopathy, No jugular venous distention. No thyromegaly, neck mass, or prior surgery apparent. Respiratory System: Chest clear to auscultation. Cardiovascular System: Heart with regular rate and rhythm. 3/6 murmur. GI System: Abdomen soft, tender throughout. Normo active bowel sounds present. Musculoskeletal System: limbs with no pedal edema. Full distal pulses. Neurological System: No discernable sensory deficit. No aphasia Psychiatric System: Conversation is rational Results - Labs CBC & BMP: 03/30/17 05:41 03/30/17 05:41 Lab Results: I have reviewed the past 24 hour labs - Diagnostic Findings Procedure: Abdominal x-ray: report reviewed by me (No active process suggested) <Morgan Cerrato - Last Filed: 03/30/17 13:07> History of Present Illness History of present illness: Patient seen and examined independently of WESLEY Ann, agree with history, assessment and plan as documented. 52 y/o WF being admitted for acute on chronic pancreatitis. History of heavy alcohol use. She reports not drinking alcohol since October. Epigastric pain started two days prior. On exam, she is tender to palpation in the epigastric region. NPO, IV fluids, pain control. Also levaquin for uti. Exam - Constitutional Vitals: Period Temp Pulse Resp BP Sys/Boyce Pulse Ox Last 24 Hr 97.3 F-98.2 F 87-104 18-20 128-213/68-144 99-99 Results - Labs CBC & BMP: 03/30/17 05:41 03/30/17 05:41
[2017-03-30 08:09] LABS: Risk Ratio 4.15
[2017-03-30] MEDS: HYDROmorphone 2 MG/1 ML VIAL IV SCH ×6 (08:44→15:50)
[2017-03-30] MEDS: SODIUM CHLORIDE 0.9% 1,000 ML IV SCH ×3 (08:44→23:50)
[2017-03-30 09:03] LABS: Alcohol Patient Result Negative (Negative)
[2017-03-30] MEDS: FLUTICASONE 50 MCG NASAL SPRAY 16 GM BOTTLE BOTH NARES SCH ×2 (10:05→20:54)
[2017-03-30] MEDS: LEVOFLOXACIN INJ 500 MG in PREMIX 1 EACH IV SCH (10:07)
[2017-03-30] MEDS: ENOXAPARIN 40 MG/0.4 ML SYRINGE SUBCUT SCH (10:08)
[2017-03-30] MEDS: oxyCODONE/ACETAMINOPHEN 5-325 MG TABLET PO SCH ×3 (10:12→20:54)
[2017-03-30] MEDS: ESCITALOPRAM 10 MG TABLET PO SCH (10:13)
[2017-03-30] MEDS: FENOFIBRATE 160 MG TABLET PO SCH (10:13)
[2017-03-30] MEDS: cloNIDine 0.1 MG TABLET PO SCH ×3 (10:14→20:56)
[2017-03-30] MEDS: PANTOPRAZOLE 40 MG TABLET PO SCH (10:14)
[2017-03-30] MEDS: CETIRIZINE 10 MG TABLET PO SCH (10:14)
[2017-03-30] MEDS: LOSARTAN 50 MG TABLET PO SCH (10:15)
[2017-03-30] MEDS: ONDANSETRON 4 MG/2 ML VIAL IV PRN (12:05)
[2017-03-30] MEDS ORDERED: NALOXONE 0.4 MG/ML VIAL IV PRN (14:36)
[2017-03-30] MEDS: HYDROmorphone PCA 30 MG/30 ML SYRINGE IV SCH (15:34)
[2017-03-31] MEDS: SODIUM CHLORIDE 0.9% 1,000 ML IV SCH ×7 (01:23→20:43)
[2017-03-31 04:51] LABS: Basophils % 0.2 % (0.0-0.8); Eosinophils # 0.1 10*3/uL (0.0-0.87); Eosinophils % 1.8 % (0.00-10.9); Hematocrit 37.5 VOL% (35.7-47.0); Hemoglobin 12.4 GM/DL (12.0-16.0); Immature Granulocytes % 0.4 %; Immature Granulocytes Absolute 0.02 #; Lymphocytes # 1.3 10*3/uL (1.4-4.0); Lymphocytes % 22.6 % (21.3-54.2); Mean Corpuscular HGB Conc 33.1 GM/DL (32-36); Mean Corpuscular Hemoglobin 31 PG (27-34); Mean Corpuscular Volume 94.5 FL (87-102); Mean Platelet Volume 10.9 FL (9.6-12.0); Monocytes # 0.3 10*3/uL (0.11-0.8); Monocytes % 4.8 % (1.7-12.7); Neutrophils # 3.9 10*3/uL (1.4-7.4); Neutrophils % 70.2 % (38.7-73.9); Platelet Count 214 T/CUMM (130-400); Red Blood Count 3.97 MC/CUMM (3.8-5.5); Red Cell Distribution Width 14.2 % (9.3-17.3); White Blood Count 5.6 T/CUMM (4-12)
[2017-03-31 05:33] LABS: Calcium 8.4 MG/DL (8.5-10.1); Magnesium 1.8 MG/DL (1.8-2.4); Osmolality,Calculated 284.3 MOS/KG (273-304); Potassium 3.9 MMOL/L (3.5-5.1)
--- NOTE | 2017-03-31 08:54 | Hospitalist Progress Note ---
<Oj Juárez - Last Filed: 03/31/17 08:51> Assessment and Plan (1) Acute on chronic pancreatitis Status: Acute Assessment and plan: Noted improvement in lipase, lipase today noted at 487 a significant reduction from 1143 at the time of admission. We will continue volume replacement, promote bowel rest, and manage pain. Will obtain an ultrasound of the abdomen today for review. Current Visit: Yes (2) Essential hypertension Status: Acute Assessment and plan: Blood pressures are relatively stable, continue current regimen as ordered. We will monitor. Current Visit: Yes (3) UTI (urinary tract infection) Status: Acute Assessment and plan: Continue Levaquin as previously ordered. Current Visit: Yes Hospitalist: Subjective Interval history: Patient seen and examined, chart reviewed. No significant overnight events reported. Patient reports that her pain is well controlled. Exam - Constitutional Vitals: Period Temp Pulse Resp BP Sys/Boyce Pulse Ox Last 24 Hr 96.7 F-98.2 F 64-104 18-20 81-154/48-92 93-99 General appearance: over weight - Head Head exam: Present: normal inspection, normocephalic, atraumatic - Eye Eye exam: Present: EOMI. Absent: conjunctival injection, nystagmus Pupils: Present: VAN, normal accommodation - ENT ENT exam: Present: normal exam, normal external ear exam, normal oropharynx - Neck Neck exam: Present: normal inspection. Absent: lymphadenopathy, meningismus, tenderness, thyromegaly - Respiratory Respiratory exam: Present: clear to auscultation bilaterally. Absent: rales, rhonchi, stridor, wheezes - Cardiovascular Cardiovascular exam: Present: regular rate and rhythm. Absent: carotid bruit, diastolic murmur, gallop, JVD, rubs, systolic murmur - GI/Abdominal GI/Abdominal exam: Present: normal bowel sounds, tenderness, soft. Absent: firm , hernia, mass - Extremities Exam Extremities exam: Present: normal inspection, normal capillary refill, full ROM. Absent: edema - Back Exam Back exam: Present: normal inspection - Neurological Exam Neurological exam: Present: alert, oriented X3, CN II-XII intact - Psychiatric Psychiatric exam: Present: normal affect, normal mood - Skin Skin exam: Present: normal color, warm, dry Results - Labs CBC & BMP: 03/31/17 04:20 03/31/17 04:20 Lab Results: I have reviewed the past 24 hour labs <Morgan Cerrato - Last Filed: 03/31/17 11:16> Hospitalist: Subjective Interval history: Patient seen and examined independently of DONTE Juárez, agree with assessment and plan as documented. Pain appears to be well controlled. 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 Starting clear liquid diet. Exam - Constitutional Vitals: Period Temp Pulse Resp BP Sys/Boyce Pulse Ox Last 24 Hr 96.7 F-98.2 F 64-104 18-20 81-154/48-92 93-99 Results - Labs CBC & BMP: 03/31/17 04:20 03/31/17 04:20
[2017-03-31 09:10] LABS: Hepatitis A Ab IgM Quant < 0.02 Index; Hepatitis A Ab IgM Result Negative (Negative); Hepatitis B Core IgM Quant 0.25 Index; Hepatitis B Core IgM Result Negative (Negative); Hepatitis B Surface Ag Quant < 0.10 Index; Hepatitis B Surface Ag Result Negative (Negative); Hepatitis C Virus Ab Quant 0.11 Index; Hepatitis C Virus Ab Result Negative (Negative)
--- NOTE | 2017-03-31 09:19 | Ultrasound Report ---
US abdomen Indication: Pancreatitis. History of previous cholecystectomy. Comparison: None. Technique: Using transcutaneous probe, ultrasound imaging of the abdomen was performed. Ultrasound images were captured and stored. Interrogated structures include the liver, gallbladder, spleen, pancreas, right kidney, left kidney, aorta, and inferior vena cava. Findings: Longitudinal images of the aorta demonstrate no abnormality of the proximal aorta. The mid and distal aorta are obscured. The pancreas is not identified secondary to bowel gas. Images submitted of the liver demonstrate presence of color flow within the interrogated portal venous and hepatic venous segments. The right hepatic lobe is 15 to 16 cm in craniocaudal dimension. Echotexture of the liver is diffusely increased compared to that of the right renal cortex and a component of hepatic steatosis could be considered. No focal hepatic masses are demonstrated. Common bile duct measures up to 10 mm. Right kidney measures 10.8 cm in craniocaudal dimension. Color flow is present. No focal abnormality of the right kidney is present. Left kidney measures 9.9 cm in length and demonstrates no focal abnormality. Color flow is present. Spleen is normal in size and appearance. Color flow is present within the inferior vena cava. Gallbladder is not identified and may be surgically absent. Impression: 1. Spleen is obscured secondary to bowel gas. 2. Gallbladder is not identified, compatible with prior cholecystectomy. 3. Enlargement of the bile duct is present. This is a nonspecific finding in the setting of prior cholecystectomy. 03/31/2017 9:13 AM PROCEDURE INTERPRETED AT [facility] DEPARTMENT OF RADIOLOGY Final Report Signed by: Dr. Eugenio Rios
[2017-03-31] MEDS: LEVOFLOXACIN INJ 500 MG in PREMIX 1 EACH IV SCH (10:30)
[2017-03-31] MEDS: LOSARTAN 50 MG TABLET PO SCH (11:30)
[2017-03-31] MEDS: cloNIDine 0.1 MG TABLET PO SCH ×3 (11:30→20:39)
[2017-03-31] MEDS: FLUTICASONE 50 MCG NASAL SPRAY 16 GM BOTTLE BOTH NARES SCH ×2 (11:30→20:42)
[2017-03-31] MEDS: ENOXAPARIN 40 MG/0.4 ML SYRINGE SUBCUT SCH (11:30)
[2017-03-31] MEDS: CETIRIZINE 10 MG TABLET PO SCH (11:31)
[2017-03-31] MEDS: PANTOPRAZOLE 40 MG TABLET PO SCH (11:31)
[2017-03-31] MEDS: FENOFIBRATE 160 MG TABLET PO SCH (11:31)
[2017-03-31] MEDS: oxyCODONE/ACETAMINOPHEN 5-325 MG TABLET PO SCH ×3 (11:31→20:39)
[2017-03-31] MEDS: ESCITALOPRAM 10 MG TABLET PO SCH (11:31)
[2017-03-31] MEDS: HYDROmorphone PCA 30 MG/30 ML SYRINGE IV SCH (14:01)
[2017-03-31] MEDS: ONDANSETRON 4 MG/2 ML VIAL IV PRN (20:40)
[2017-04-01] MEDS: SODIUM CHLORIDE 0.9% 1,000 ML IV SCH ×5 (00:04→20:16)
[2017-04-01] MEDS: HYDROmorphone PCA 30 MG/30 ML SYRINGE IV SCH ×2 (05:28→15:03)
[2017-04-01] MEDS: ONDANSETRON 4 MG/2 ML VIAL IV PRN (06:07)
[2017-04-01] MEDS: cloNIDine 0.1 MG TABLET PO SCH ×4 (07:30→20:16)
[2017-04-01] MEDS: LEVOFLOXACIN INJ 500 MG in PREMIX 1 EACH IV SCH (08:28)
[2017-04-01] MEDS: ENOXAPARIN 40 MG/0.4 ML SYRINGE SUBCUT SCH (08:29)
[2017-04-01] MEDS: PANTOPRAZOLE 40 MG TABLET PO SCH (08:29)
[2017-04-01] MEDS: FENOFIBRATE 160 MG TABLET PO SCH (08:29)
[2017-04-01] MEDS: CETIRIZINE 10 MG TABLET PO SCH (08:29)
[2017-04-01] MEDS: LOSARTAN 50 MG TABLET PO SCH (08:29)
[2017-04-01] MEDS: oxyCODONE/ACETAMINOPHEN 5-325 MG TABLET PO SCH ×3 (08:30→20:14)
[2017-04-01] MEDS: FLUTICASONE 50 MCG NASAL SPRAY 16 GM BOTTLE BOTH NARES SCH ×2 (08:30→20:16)
[2017-04-01] MEDS: ESCITALOPRAM 10 MG TABLET PO SCH (08:30)
--- NOTE | 2017-04-01 09:46 | Hospitalist Progress Note ---
<Oj Juárez - Last Filed: 04/01/17 09:42> Assessment and Plan (1) Acute on chronic pancreatitis Status: Acute Assessment and plan: Noted improvement in lipase, lipase today noted at 487 a significant reduction from 1143 at the time of admission. We will continue volume replacement, promote bowel rest, and manage pain. Will obtain an ultrasound of the abdomen today for review. 04/01-Noted improvement in lipase today; lipase noted at 194 today a significant reduction from 487 on yesterday and 1143 at the time of admission. The patient' s diet was advanced on yesterday ;she tolerated it well for the most part. She reported multiple episodes of nausea vomiting on yesterday. Ultrasound of the abdomen on yesterday was essentially unremarkable. We will continue volume replacement and pain management. Current Visit: Yes (2) Essential hypertension Status: Acute Assessment and plan: Blood pressures are relatively stable, continue current regimen as ordered. We will monitor. Current Visit: Yes (3) UTI (urinary tract infection) Status: Acute Assessment and plan: Continue Levaquin as previously ordered. Current Visit: Yes Hospitalist: Subjective Interval history: Patient seen and examined, chart reviewed. Patient reports slight improvement in pain overnight however; reports multiple episodes of vomiting on last night. Exam - Constitutional Vitals: Period Temp Pulse Resp BP Sys/Boyce Pulse Ox Last 24 Hr 96.4 F-97.4 F 68-88 16-20 116-203/68-110 91-98 General appearance: normal weight, no acute distress - Head Head exam: Present: normal inspection, normocephalic, atraumatic - Eye Eye exam: Present: EOMI. Absent: conjunctival injection, nystagmus Pupils: Present: VAN, normal accommodation - ENT ENT exam: Present: normal exam, normal external ear exam, normal oropharynx - Neck Neck exam: Present: normal inspection, lymphadenopathy, meningismus, thyromegaly - Respiratory Respiratory exam: Present: clear to auscultation bilaterally. Absent: rales, rhonchi, stridor, wheezes - Cardiovascular Cardiovascular exam: Present: regular rate and rhythm. Absent: carotid bruit, diastolic murmur, gallop, JVD, rubs, systolic murmur - GI/Abdominal GI/Abdominal exam: Present: normal bowel sounds, tenderness, soft - Extremities Exam Extremities exam: Present: normal inspection, normal capillary refill, full ROM. Absent: edema - Back Exam Back exam: Present: normal inspection - Neurological Exam Neurological exam: Present: alert, oriented X3, altered - Psychiatric Psychiatric exam: Present: flat affect - Skin Skin exam: Present: normal color, warm, dry Results - Labs CBC & BMP: 03/31/17 04:20 03/31/17 04:20 Lab Results: I have reviewed the past 24 hour labs <Morgan Cerrato - Last Filed: 04/01/17 14:40> Hospitalist: Subjective Interval history: Patient seen and examined independently of CARDIOVASCULAR TECHNOLOGIST John, agree with assessment and plan as documented. Pain is better today. Tolerating a diet, would like for it to be advanced. She would like to go home tomorrow. Exam - Constitutional Vitals: Period Temp Pulse Resp BP Sys/Boyce Pulse Ox Last 24 Hr 96.4 F-97.4 F 68-110 16-20 116-203/68-110 91-99 Results - Labs CBC & BMP: 03/31/17 04:20 03/31/17 04:20
[2017-04-02] MEDS: SODIUM CHLORIDE 0.9% 1,000 ML IV SCH ×3 (06:45→11:49)
[2017-04-02] MEDS: ENOXAPARIN 40 MG/0.4 ML SYRINGE SUBCUT SCH (08:34)
[2017-04-02] MEDS: cloNIDine 0.1 MG TABLET PO SCH (08:34)
[2017-04-02] MEDS: CETIRIZINE 10 MG TABLET PO SCH (08:35)
[2017-04-02] MEDS: LOSARTAN 50 MG TABLET PO SCH (08:35)
[2017-04-02] MEDS: oxyCODONE/ACETAMINOPHEN 5-325 MG TABLET PO SCH (08:35)
[2017-04-02] MEDS: ESCITALOPRAM 10 MG TABLET PO SCH (08:35)
[2017-04-02] MEDS: FLUTICASONE 50 MCG NASAL SPRAY 16 GM BOTTLE BOTH NARES SCH (08:36)
[2017-04-02] MEDS: LEVOFLOXACIN INJ 500 MG in PREMIX 1 EACH IV SCH (08:36)
[2017-04-02] MEDS: PANTOPRAZOLE 40 MG TABLET PO SCH (08:36)
[2017-04-02] MEDS: FENOFIBRATE 160 MG TABLET PO SCH (08:36)
--- NOTE | 2017-04-02 09:56 | Hospitalist History & Physical ---
Assessment and Plan (1) Acute on chronic pancreatitis Status: Acute Assessment and plan: Noted improvement in lipase, lipase today noted at 487 a significant reduction from 1143 at the time of admission. We will continue volume replacement, promote bowel rest, and manage pain. Will obtain an ultrasound of the abdomen today for review. 04/01-Noted improvement in lipase today; lipase noted at 194 today a significant reduction from 487 on yesterday and 1143 at the time of admission. The patient' s diet was advanced on yesterday ;she tolerated it well for the most part. She reported multiple episodes of nausea vomiting on yesterday. Ultrasound of the abdomen on yesterday was essentially unremarkable. We will continue volume replacement and pain management. Current Visit: Yes (2) Essential hypertension Status: Acute Assessment and plan: Blood pressures are relatively stable, continue current regimen as ordered. We will monitor. Current Visit: Yes (3) UTI (urinary tract infection) Status: Acute Assessment and plan: Continue Levaquin as previously ordered. Current Visit: Yes History of Present Illness History of present illness: Ms. Lopez is a 52 year old female Home Medications Medication Instructions Recorded Confirmed Type Oxycodone HCl/Acetaminophen 10 mg PO TID 12/11/16 03/30/17 History [Percocet 10-325 mg Tablet] Escitalopram [Lexapro] 20 mg PO DAILY #30 tablet 12/16/16 03/30/17 Rx Fenofibrate [Tricor] 160 mg PO DAILY #30 tablet 12/16/16 03/30/17 Rx Losartan [Cozaar] 100 mg PO DAILY #60 tablet 12/16/16 03/30/17 Rx cloNIDine TAB [Catapres Tab] 0.2 mg PO TID #180 tablet 12/16/16 03/30/17 Rx Promethazine Tab [Phenergan Tab] 25 mg PO Q4H PRN #30 tablet 02/04/17 03/30/17 Rx Esomeprazole Magnesium [Nexium] 1 capsule PO DAILY 03/30/17 03/30/17 History Allergies Allergy/AdvReac Type Severity Reaction Status Date / Time No Known Allergies Allergy Verified 03/30/17 05:30 Medical,Surgical,& Family Hx - Medical History Cardio: History of: Hypertension Psychological: History of: Anxiety Disorders, Depression, Psychiatric/Substance Abuse Tx (history of alcohol use) Neurology: No history of: Brain Aneurysm, Cerebral Hemorrhage, Cerebrovascular Accident , Cerebral Palsy, Dementia, Migraine, Multiple Sclerosis, Parkinson's Disease, Peripheral Neuropathy, Seizures, TIA, Vertigo, Neurologocal Cancer HEENT: History of: HEENT Problems (sinus problems) Endocrine: History of: Dyslipidemia Respiratory: History of: Obstructive Sleep Apnea (no cpap) Gastrointestinal: History of: GERD, Pancreatitis, Polyps, GI Problems (Hiatal Hernia-- History of alcoholism) Musculoskeletal: History of: Back/Neck Problems (chronic back pain), Herniated Disk (3 in neck) Reproductive: No history of: Reproductive Problems (3 c sections) Other: No history of: Cancer - Surgical History Neurologic Surgeries: Patient denies: Brain Aneurysm, Cerebral Hemorrhage, Neurologic Surgery Abdominal Surgeries: Surgical HX of: Abdominal Surgery (Exploratory lap 1981), Cholecystectomy, Colonoscopy (11/16/14) Reproductive Surgeries: Surgical HX of;: Section (x3), Hysterectomy ( 2004) Orthopedic Surgeries: Surgical HX of;: Orthopedic Surgery - Family History Family History: Reports;: Family Heart Disease (mother had 2 surgeries), Family Hypertension (mother, brother, and sister) - Social History Smoking Status: Current every day smoker Frequency of Alcohol Use: None Type of Drug Use: Opiates Exam - Constitutional Vitals: Period Temp Pulse Resp BP Sys/Boyce Pulse Ox Last 24 Hr 96.8 F-97.3 F 67-110 16-20 148-200/77-104 94-99 Results - Labs CBC & BMP: 03/31/17 04:20 03/31/17 04:20
--- NOTE | 2017-04-02 10:02 | Discharge Summary ---
<Mikaela Juárezda - Last Filed: 04/02/17 10:40> Hospital Course - Hospital Course Hospital Course: This is a very pleasant 52-year-old female that presented to the ED at [facility] March 30, 2017 for evaluation of epigastric pain. Patient has a medical history significant for hypertension, depression, anxiety , alcohol abuse, dyslipidemia, nicotine abuse, chronic back pain, pancreatitis, hiatal hernia and obstructive sleep apnea. The patient has a surgical history significant of abdominal exploratory lap,cholecystectomy,and hysterectomy. The patient reported the onset of epigastric discomfort on the night prior to presentation. She reports that she has had similar episodes in the past, in which she was noted to have pancreatitis. She has had multiple admissions in the past month for the above complaint. During her last admission, she was told that her triglycerides were high and that she needed to stop drinking. The patient reports that she has stopped drinking since the previous admission. At the time of presentation, labs were obtained which were significant for triglyceride level of 385, cholesterol of 220, and lipase level at 1143. In addition, her urinalysis was significant for a large amount of leukocytes and urobiliogen at greater than 2.0. The patient was subsequently admitted to the hospitalist services for continuation of care. She was gently rehydrated, started on levofloxacin, and her pain was managed. Ultrasound of the abdomen was obtained on March 31, 2017, which was significant for the following; spleen is obscured secondary to bowel gas, the gallbladder is not identified, enlargement of the bile duct is present , which is a nonspecific finding in the setting of prior cholecystectomy. Culture and sensitivity report from the urinalysis was received on March 30, 2017 , which reported strep agalactiae. Her condition has improved and her pain has been well managed. She is tolerating a regular diet and her bowel pattern is regular. Today, we feel that she is indeed appropriate for discharge to follow- up with her primary care physician as directed. Diagnosis - Discharge Diagnosis (1) Acute on chronic pancreatitis Status: Acute (2) Essential hypertension Status: Acute (3) UTI (urinary tract infection) Status: Acute Specialty Discharge - Follow Up or Referrals Discharge Plan - Discharge Medications New Fenofibrate [Tricor] 160 mg PO DAILY tablet Losartan [Cozaar] 100 mg PO DAILY tablet cloNIDine TAB [Catapres Tab] 0.2 mg PO TID tablet Acyclovir 5% Oint [Zovirax 5% Cream] 1 applic TOP 5X DAILY PRN #1 applic PRN Reason: Rash Escitalopram [Lexapro] 20 mg PO DAILY #30 tablet Levofloxacin Tab [Levaquin Tab] 500 mg PO DAILY #3 tablet Continue Oxycodone HCl/Acetaminophen [Percocet 10-325 mg Tablet] 10 mg PO TID Esomeprazole Magnesium [Nexium] 1 capsule PO DAILY Promethazine Tab [Phenergan Tab] 25 mg PO Q4H PRN #30 tablet PRN Reason: Nausea/Vomiting Discontinued Fenofibrate [Tricor] 160 mg PO DAILY #30 tablet Losartan [Cozaar] 100 mg PO DAILY #60 tablet cloNIDine TAB [Catapres Tab] 0.2 mg PO TID #180 tablet Escitalopram [Lexapro] 20 mg PO DAILY #30 tablet - Follow Up or Referral - Forms/Instructions Instructions: Pancreatitis (DC), Pancreatitis (GEN), Urinary Tract Infection in Women (DC) Exam - Constitutional Vitals: Period Temp Pulse Resp BP Sys/Boyce Pulse Ox Last 24 Hr 96.8 F-97.3 F 67-110 16-20 148-200/77-104 94-99 Discharge Results Labs on day of discharge: Labs from last 24 hours 04/02/17 04/01/17 04/01/17 07:14 20:32 16:04 POC Glucose 123 H 196 H 123 H 04/01/17 11:04 POC Glucose 163 H DS: Provider Date of admission: 03/30/17 07:15 Primary care physician: . No PCP Attending physician on admission: Morgan Cerrato MD Discharging clinician: Oj Juárez CNP <Morgan Cerrato - Last Filed: 04/02/17 11:06> Hospital Course - Time spent with patient Time with patient DS: Less than 30 minutes Diagnosis - Discharge Diagnosis (1) Nausea and vomiting Status: Resolved (2) Personal history of alcoholism Status: Chronic (3) anxiety Status: Chronic (4) Abdominal pain Status: Resolved (5) HTN (hypertension) Status: Chronic (6) Acute on chronic pancreatitis Status: Resolved (7) UTI (urinary tract infection) Status: Resolved Discharge Plan - Discharge Data Condition at Discharge: Stable Discharge Diet: advance to your usual diet Activity: increase activity as tolerated Hygiene: no restrictions Weight Bearing at Discharge: full weight bearing Contact your physician if you experience:: fever over 101, Nausea/Vomiting, pain uncontrolled by pain medications Exam - Constitutional General appearance: over weight - Head Head exam: Present: normocephalic, atraumatic - Eye Eye exam: Present: EOMI Pupils: Present: VAN - ENT ENT exam: Present: normal exam - Neck Neck exam: Present: normal inspection - Respiratory Respiratory exam: Present: clear to auscultation bilaterally. Absent: wheezes - Cardiovascular Cardiovascular exam: Present: regular rate and rhythm - GI/Abdominal GI/Abdominal exam: Present: normal bowel sounds, soft. Absent: tenderness, rebound - Extremities Exam Extremities exam: Present: normal inspection - Back Exam Back exam: Present: normal inspection - Neurological Exam Neurological exam: Present: alert, oriented X3 - Psychiatric Psychiatric exam: Present: normal affect, normal mood - Skin Skin exam: Present: warm, intact
[2017-04-02 11:41] VITALS: BP 182/107
[2017-04-02] MEDS ORDERED: ACYCLOVIR 5% OINT 5 GM TUBE TOP SCH (14:00)
== END 2017-04-02 15:07 | disposition home or self-care (01) | DRG 439 ==
LOC: N.ED 05:22 → N.EDINP 07:15 → N.3E 08:09
PROVIDERS: ADMIT Internal Medicine; ATTEND Internal Medicine

== ENCOUNTER 2017-05-16 09:59 | Inpatient (IN) ==
[2017-05-16] MEDS ORDERED: HYDROmorphone 2 MG/1 ML VIAL IV STA ×3 (11:18→14:50)
[2017-05-16] MEDS ORDERED: ONDANSETRON ODT 4 MG TABLET PO STA (11:18)
[2017-05-16] MEDS ORDERED: SODIUM CHLORIDE 0.9% 1,000 ML IV STA ×2 (11:19→13:01)
[2017-05-16 11:24] LABS: Basophils % 0.2 % (0.0-0.8); Eosinophils # 0.1 10*3/uL (0.0-0.87); Eosinophils % 0.8 % (0.00-10.9); Hematocrit 41.2 VOL% (35.7-47.0); Hemoglobin 14.3 GM/DL (12.0-16.0); Immature Granulocytes % 0.4 %; Immature Granulocytes Absolute 0.04 #; Lymphocytes % 11.2 % (21.3-54.2); Mean Corpuscular HGB Conc 34.7 GM/DL (32-36); Mean Corpuscular Hemoglobin 32 PG (27-34); Mean Corpuscular Volume 92.6 FL (87-102); Mean Platelet Volume 11.5 FL (9.6-12.0); Monocytes # 0.5 10*3/uL (0.11-0.8); Monocytes % 5.5 % (1.7-12.7); Neutrophils # 7.4 10*3/uL (1.4-7.4); Neutrophils % 81.9 % (38.7-73.9); Platelet Count 216 T/CUMM (130-400); Red Blood Count 4.45 MC/CUMM (3.8-5.5); Red Cell Distribution Width 13.8 % (9.3-17.3)
[2017-05-16] MEDS ORDERED: ONDANSETRON 4 MG/2 ML VIAL ONE (11:24)
[2017-05-16] MEDS ORDERED: HYDROmorphone 2 MG/1 ML VIAL ONE ×2 (11:24→13:05)
[2017-05-16] MEDS ORDERED: ONDANSETRON 4 MG/2 ML VIAL IV STA ×2 (11:25→14:50)
[2017-05-16 11:31] LABS: Amorphous Crystals,Urine Occasional /HPF (Few); Apearance,Urine Slightly Hazy (Clear); Bacteria,Urine Occasional /HPF (Few); Bilirubin,Urine Negative (Negative); Blood, Urine Negative (Negative); Glucose,Urine (UA) Negative (Negative); Ketones,Urine 5 mg/dL (Negative); Mucus,Urine Occasional /LPF (Occasional); Nitrite,Urine Negative (Negative); Protein,Urine 30 MG/DL; RBC,Urine 1 /HPF (0-4); Squamous Epithelial Cell,Urine Occasional /HPF (0-10); Urine Color Yellow (Yellow); Urine Specific Gravity 1.021 (1.001-1.035); Urine Urobilinogen < 2.0 EU/DL (0.2-1.0); WBC,Urine 4 /HPF (0-6)
--- NOTE | 2017-05-16 11:33 | Emergency Department Note ---
Brandon Naranjo Hilary, am scribing for, and in the presence of, Ary Sparks DO 11: 11. IBridger Debra, DO, personally performed the services described in this documentation, ascribed by Sharona Taylor in my presence, and it is both accurate and complete . Arrival - Arrival Chief Complaint: Abdominal / Flank Pain Stated Complaint: pancreatitis,n/v,chest pain going to back ED Nursing Triage Note: pt ambulatory to triage with c/o having abd pain with n/ v. pt states onset yesterday with worsening today. pt states her pancreatitis is flaring up . Mode of Arrival: Wheelchair Limitations: No Limitations Source: Patient, RN Notes Reviewed - History of Present Illness HPI Narrative: Pt is a 52 y/o female presenting to the ED with c/o abdominal pain which onset yesterday but worsened today. Pt states that she has pancreatitis, her last attack was January and her last drink was in October. Pt confirms abdominal pain and nausea but denies fever or chills. No other complaints or problems stated in the ED. Onset (ago): hour(s) Consistency: constant Severity: moderate Severity scale (1-10): 4 Quality: sharp Allergies/Adverse Reactions: Allergies Allergy/AdvReac Type Severity Reaction Status Date / Time No Known Allergies Allergy Verified 05/16/17 10:40 Home Medications: Home Medications Medication Instructions Recorded Confirmed Type Oxycodone HCl/Acetaminophen 10 mg PO TID 12/11/16 03/30/17 History [Percocet 10-325 mg Tablet] Esomeprazole Magnesium [Nexium] 1 capsule PO DAILY 03/30/17 03/30/17 History Acyclovir 5% Oint [Zovirax 5% 1 applic TOP 5X DAILY PRN #1 applic 04/02/17 Rx Cream] Escitalopram [Lexapro] 20 mg PO DAILY #30 tablet 04/02/17 Rx Fenofibrate [Tricor] 160 mg PO DAILY tablet 04/02/17 Rx Levofloxacin Tab [Levaquin Tab] 500 mg PO DAILY #3 tablet 04/02/17 Rx Losartan [Cozaar] 100 mg PO DAILY tablet 04/02/17 Rx Promethazine Tab [Phenergan Tab] 25 mg PO Q4H PRN #30 tablet 04/02/17 Rx cloNIDine TAB [Catapres Tab] 0.2 mg PO TID tablet 04/02/17 Rx Review of System - Review of System 12 point system: reviewed and no additional remarkable complaints except as stated - Review of System Constitutional: Absent: chills, fever Gastrointestinal: Present: abdominal pain, nausea Medical,Surgical,& Family Hx - Medical History Cardio: History of: Hypertension Psychological: History of: Anxiety Disorders, Depression, Psychiatric/Substance Abuse Tx (history of alcohol use) Neurology: No history of: Brain Aneurysm, Cerebral Hemorrhage, Cerebrovascular Accident , Cerebral Palsy, Dementia, Migraine, Multiple Sclerosis, Parkinson's Disease, Peripheral Neuropathy, Seizures, TIA, Vertigo, Neurologocal Cancer HEENT: History of: HEENT Problems (sinus problems) Endocrine: History of: Dyslipidemia Respiratory: History of: Obstructive Sleep Apnea (no cpap) Gastrointestinal: History of: GERD, Pancreatitis, Polyps, GI Problems (Hiatal Hernia-- History of alcoholism) Musculoskeletal: History of: Back/Neck Problems (chronic back pain), Herniated Disk (3 in neck) Reproductive: No history of: Reproductive Problems (3 c sections) Other: No history of: Cancer - Surgical History Neurologic Surgeries: Patient denies: Brain Aneurysm, Cerebral Hemorrhage, Neurologic Surgery Abdominal Surgeries: Surgical HX of: Abdominal Surgery (Exploratory lap 1981), Cholecystectomy, Colonoscopy (11/16/14) Reproductive Surgeries: Surgical HX of;: Section (x3), Hysterectomy ( 2004) Orthopedic Surgeries: Surgical HX of;: Orthopedic Surgery - Family History Family History: Reports;: Family Heart Disease (mother had 2 surgeries), Family Hypertension (mother, brother, and sister) - Social History Smoking Status: Current every day smoker Frequency of Alcohol Use: None Type of Drug Use: None Exam Vital Signs: Vital Signs Temperature 97.5 F L 05/16/17 11:39 Pulse Rate 91 H 05/16/17 11:39 Respiratory Rate 17 05/16/17 11:39 Blood Pressure 244/142 05/16/17 11:39 O2 Sat by Pulse Oximetry 99 05/16/17 10:37 - General General appearance: alert, in no apparent distress, obese (mildly) - Head Head exam: Present: atraumatic, normocephalic - Eye Eye exam: Present: normal appearance, PERRL, EOMI - ENT ENT exam: Present: mucous membranes dry, TM's normal bilaterally. Absent: mucous membranes moist - Neck Neck exam: Present: full ROM, trachea midline. Absent: tenderness - Chest Chest inspection: Present: symmetric chest wall rise. Absent: tenderness - Respiratory Respiratory exam: Present: normal lung sounds bilaterally. Absent: respiratory distress - Cardiovascular Cardiovascular exam: Present: normal rhythm, tachycardia, normal heart sounds. Absent: murmur, rubs, gallop - Abdominal Exam Abdominal exam: Present: soft, tenderness (LUQ ), guarding, rebound, normal bowel sounds. Absent: distention - Extremities Exam Extremities exam: Present: full ROM. Absent: tenderness - Back Exam Back exam: Present: full ROM. Absent: tenderness - Neurological Exam Neurological exam: Present: alert, oriented X3, CN II-XII intact. Absent: motor sensory deficit - Psychiatric Psychiatric exam: Present: normal affect, normal mood - Skin Skin exam: Present: warm, dry, intact, normal color. Absent: rash Results - Labs CBC & BMP: 05/16/17 10:53 05/16/17 10:53 Lab Results: I have reviewed the patients labs Labs: Laboratory Tests 05/16/17 05/16/17 05/16/17 10:53 10:53 10:53 WBC 9.0 RBC 4.45 Hgb 14.3 Hct 41.2 Plt Count 216 Neut % (Auto) 81.9 H Lymph % (Auto) 11.2 L Lymph # (Auto) 1.0 L Sodium 138 Potassium 3.6 Chloride 104 Carbon Dioxide 24 BUN 14 Glucose 125 H Troponin I < 0.015 Total Protein 7.9 Globulin 3.8 H Albumin/Globulin Ratio 1.0 L Amylase 210 H Lipase 1434.0 H Urine pH 5.0 Ur Specific [place] 1.021 Urine Protein 30 Urine Ketones 5 Urine Urobilinogen < 2.0 H Urine Leukocytes Small H Urine RBC 1 Urine WBC 4 Urine Opiates Screen Ur Barbiturates Screen Ur Phencyclidine Scrn U Amphetamine/Methamph U Benzodiazepines Scrn U Cocaine Metab Screen U Cannabinoids Screen 05/16/17 10:53 WBC RBC Hgb Hct Plt Count Neut % (Auto) Lymph % (Auto) Lymph # (Auto) Sodium Potassium Chloride Carbon Dioxide BUN Glucose Troponin I Total Protein Globulin Albumin/Globulin Ratio Amylase Lipase Urine pH Ur Specific [place] Urine Protein Urine Ketones Urine Urobilinogen Urine Leukocytes Urine RBC Urine WBC Urine Opiates Screen Positive H Ur Barbiturates Screen Negative Ur Phencyclidine Scrn Negative U Amphetamine/Methamph Negative U Benzodiazepines Scrn Negative U Cocaine Metab Screen Negative U Cannabinoids Screen Negative
[2017-05-16 11:35] LABS: Barbiturates Screen,Urine Negative (Negative); Benzodiazepines Screen,Urine Negative (Negative); Cannabinoid Screen,Urine Negative (Negative); Opiate Screen,Urine Positive (Negative); Phencyclidine Screen,Urine Negative (Negative)
[2017-05-16 11:38] LABS: Alanine Aminotransferase 26 U/L (13-56); Albumin 4.1 G/DL (3.4-5.0); Alkaline Phosphatase 91 U/L (45-117); Amylase 210 U/L (25-115); Aspartate Amino Transferase 19 U/L (0-37); Blood Urea Nitrogen 14 MG/DL (7-18); Calcium 9.7 MG/DL (8.5-10.1); Glucose 125 MG/DL (74-106); Magnesium 1.8 MG/DL (1.8-2.4); Osmolality,Calculated 276.7 MOS/KG (273-304); Potassium 3.6 MMOL/L (3.5-5.1); Sodium 138 MMOL/L (136-145); Total Protein 7.9 G/DL (6.4-8.3); Troponin I Only < 0.015 NG/ML (0.00-0.045)
[2017-05-16] MEDS ORDERED: LEVOFLOXACIN INJ 750 MG in PREMIX 1 EACH IV STA (12:53)
[2017-05-16] MEDS ORDERED: hydrALAZINE 20 MG/1 ML VIAL IV STA (13:54)
[2017-05-16] MEDS ORDERED: hydrALAZINE 20 MG/1 ML VIAL ONE (13:59)
--- NOTE | 2017-05-16 14:30 | Hospitalist History & Physical ---
Assessment and Plan (1) Acute on chronic pancreatitis Status: Acute Assessment and plan: The patient has required multiple hospitalizations in recent months for pancreatitis. Her lipase is noted at 1434 at the time of admission. This is not large and impressive however we will provide supportive care. We will gently rehydrate, promote bowel rest, and manage her pain throughout the clinical encounter. We will recheck CMP and lipase in a.m. Current Visit: No (2) Essential hypertension Status: Acute Assessment and plan: At the time of ED presentation patient was grossly hypertensive with the blood pressure noted at 244/142. The patient was given Apresoline in the ED and her blood pressure responded and is now noted at 168/114. We will resume home medications as previously ordered in order as needed hydralazine for blood pressure control. Current Visit: No History of Present Illness Chief complaint: Abdominal pain History of present illness: This is a very pleasant 52-year-old female that presented to the ED at [facility] on this afternoon for the evaluation of abdominal pain. The patient has a very complex medical history significant for chronic pancreatitis, hyperlipidemia, nicotine addiction, hypertension, anxiety, depression, remote alcohol abuse, obstructive sleep apnea, gastroesophageal reflux disease, hiatal hernia, and chronic back pain. Patient surgical history significant for exploratory laparotomy, cholecystectomy, colonoscopy, hysterectomy, and section 3. The patient reported the onset of the above symptoms 1 day prior to presentation. She reported that she initially started to experience abdominal pain with time progression started to experience nausea vomiting. She associates these symptoms with a "pancreatitis flare-up". The patient was assessed at the time of ED presentation. The patient was noted to be grossly hypertensive with a blood pressure noted at 244/142. Labs were obtained; complete blood count reported WBCs at 9.0, hemoglobin 14.3, hematocrit 41.2, and platelet count of 216. Comprehensive metabolic profile reported sodium 138, potassium 3.6, chloride 104, carbon dioxide 24, anion gap 13.6, BUN 14, creatinine 0.90, glucose 125, calcium 9.7, magnesium 1.8, total bilirubin 0.70, AST 19, ALT 26, alkaline phosphatase 91, troponin less than 0.05 , albumin 4.1, globulin 3.8, amylase 210, lipase 1434. Urinalysis were significant for a urobilinogen less than 2.0 and a small amount of leukocytes. After brief discussion with both Dr. Sparks and Dr. Lerma, the patient will be admitted to hospitalist services for continuation of care. Home medications have been reviewed and reconciled. CODE STATUS discussed; the patient is a FULL CODE. Home Medications Medication Instructions Recorded Confirmed Type Oxycodone HCl/Acetaminophen 10 mg PO TID 12/11/16 05/16/17 History [Percocet 10-325 mg Tablet] Esomeprazole Magnesium [Nexium] 1 capsule PO QAM 03/30/17 05/16/17 History cloNIDine TAB [Catapres Tab] 0.2 mg PO TID tablet 04/02/17 05/16/17 Rx Escitalopram [Lexapro] 20 mg PO QAM 05/16/17 05/16/17 History Fenofibrate [Tricor] 160 mg PO QAM 05/16/17 05/16/17 History Losartan [Cozaar] 100 mg PO QAM 05/16/17 05/16/17 History Allergies Allergy/AdvReac Type Severity Reaction Status Date / Time No Known Allergies Allergy Verified 05/16/17 10:40 Medical,Surgical,& Family Hx - Medical History Cardio: History of: Hypertension Psychological: History of: Anxiety Disorders, Depression, Psychiatric/Substance Abuse Tx (history of alcohol use) Neurology: No history of: Brain Aneurysm, Cerebral Hemorrhage, Cerebrovascular Accident , Cerebral Palsy, Dementia, Migraine, Multiple Sclerosis, Parkinson's Disease, Peripheral Neuropathy, Seizures, TIA, Vertigo, Neurologocal Cancer HEENT: History of: HEENT Problems (sinus problems) Endocrine: History of: Dyslipidemia Respiratory: History of: Obstructive Sleep Apnea (no cpap) Gastrointestinal: History of: GERD, Pancreatitis, Polyps, GI Problems (Hiatal Hernia-- History of alcoholism) Musculoskeletal: History of: Back/Neck Problems (chronic back pain), Herniated Disk (3 in neck) Reproductive: No history of: Reproductive Problems (3 c sections) Other: No history of: Cancer - Surgical History Neurologic Surgeries: Patient denies: Brain Aneurysm, Cerebral Hemorrhage, Neurologic Surgery Abdominal Surgeries: Surgical HX of: Abdominal Surgery (Exploratory lap 1981), Cholecystectomy, Colonoscopy (11/16/14) Reproductive Surgeries: Surgical HX of;: Section (x3), Hysterectomy ( 2004) Orthopedic Surgeries: Surgical HX of;: Orthopedic Surgery - Family History Family History: Reports;: Family Heart Disease (mother had 2 surgeries), Family Hypertension (mother, brother, and sister) - Social History Smoking Status: Current every day smoker Frequency of Alcohol Use: None Type of Drug Use: None 12 point system: reviewed and no additional remarkable complaints except as stated Exam - Constitutional Vitals: Period Temp Pulse Resp BP Sys/Boyce Pulse Ox Last 24 Hr 97.5 F-97.5 F 83-91 17-18 162-244/106-142 96-100 General appearance: normal weight, no acute distress - Head Head exam: Present: normal inspection, normocephalic, atraumatic - Eye Eye exam: Present: EOMI Pupils: Present: VAN, normal accommodation - ENT ENT exam: Present: normal exam, normal external ear exam, normal oropharynx - Neck Neck exam: Present: normal inspection. Absent: lymphadenopathy, meningismus, thyromegaly - Respiratory Respiratory exam: Present: clear to auscultation bilaterally. Absent: rhonchi, stridor, wheezes - Cardiovascular Cardiovascular exam: Present: regular rate and rhythm. Absent: carotid bruit, diastolic murmur, gallop, JVD, rubs, systolic murmur - GI/Abdominal GI/Abdominal exam: Present: normal bowel sounds, guarding, tenderness (Left upper quadrant) - Extremities Exam Extremities exam: Present: normal inspection, normal capillary refill, full ROM. Absent: edema - Back Exam Back exam: Present: normal inspection - Neurological Exam Neurological exam: Present: alert, oriented X3, CN II-XII intact - Psychiatric Psychiatric exam: Present: normal affect, normal mood - Skin Skin exam: Present: normal color, warm, dry Results - Labs CBC & BMP: 05/16/17 10:53 05/16/17 10:53 Lab Results: I have reviewed the past 24 hour labs
[2017-05-16] MEDS ORDERED: cloNIDine 0.1 MG TABLET PO SCH (15:00)
[2017-05-16] MEDS ORDERED: MEROPENEM 1,000 MG in SODIUM CHLORIDE 0.9% 100 ML IV SCH (15:00)
[2017-05-16 15:01] LABS: Triglycerides 297 MG/DL (2-150)
[2017-05-16] MEDS: FAMOTIDINE 20 MG/2 ML VIAL IV SCH (18:05)
[2017-05-16] MEDS: SODIUM CHLORIDE 0.9% 1,000 ML IV SCH ×2 (18:05→23:05)
[2017-05-16] MEDS: HYDROmorphone 2 MG/1 ML VIAL IV PRN ×2 (18:27→22:32)
[2017-05-16] MEDS: ONDANSETRON 4 MG/2 ML VIAL IV PRN (18:34)
[2017-05-17] MEDS: ONDANSETRON 4 MG/2 ML VIAL IV PRN (02:54)
[2017-05-17] MEDS: FAMOTIDINE 20 MG/2 ML VIAL IV SCH ×2 (02:54→16:12)
[2017-05-17] MEDS: hydrALAZINE 20 MG/1 ML VIAL IV PRN (03:09)
[2017-05-17] MEDS: SODIUM CHLORIDE 0.9% 1,000 ML IV SCH ×4 (03:54→14:13)
[2017-05-17] MEDS: HYDROmorphone 2 MG/1 ML VIAL IV PRN ×6 (04:28→23:59)
[2017-05-17 08:04] LABS: Basophils % 0.5 % (0.0-0.8); Eosinophils # 0.1 10*3/uL (0.0-0.87); Eosinophils % 0.9 % (0.00-10.9); Hematocrit 38.3 VOL% (35.7-47.0); Immature Granulocytes % 0.6 %; Immature Granulocytes Absolute 0.04 #; Lymphocytes # 1.3 10*3/uL (1.4-4.0); Lymphocytes % 19.8 % (21.3-54.2); Mean Corpuscular HGB Conc 33.9 GM/DL (32-36); Mean Corpuscular Hemoglobin 32 PG (27-34); Mean Corpuscular Volume 93.6 FL (87-102); Mean Platelet Volume 11.2 FL (9.6-12.0); Monocytes # 0.3 10*3/uL (0.11-0.8); Monocytes % 5.2 % (1.7-12.7); Neutrophils # 4.8 10*3/uL (1.4-7.4); Platelet Count 214 T/CUMM (130-400); Red Blood Count 4.09 MC/CUMM (3.8-5.5); Red Cell Distribution Width 14.2 % (9.3-17.3); White Blood Count 6.5 T/CUMM (4-12)
[2017-05-17] MEDS: FENOFIBRATE 160 MG TABLET PO SCH (08:17)
[2017-05-17] MEDS: ESCITALOPRAM 10 MG TABLET PO SCH (08:17)
[2017-05-17 08:49] LABS: Albumin 3.7 G/DL (3.4-5.0); Bilirubin,Total 0.4 MG/DL (0.2-1.0); Calcium 8.2 MG/DL (8.5-10.1); Magnesium 1.7 MG/DL (1.8-2.4); Osmolality,Calculated 270.8 MOS/KG (273-304); Potassium 3.2 MMOL/L (3.5-5.1); Total Protein 6.8 G/DL (6.4-8.3)
[2017-05-17] MEDS ORDERED: LOSARTAN 50 MG TABLET PO SCH (09:00)
[2017-05-17] MEDS: METRONIDAZOLE 1% GEL 60 GM TUBE TOP SCH (09:08)
[2017-05-17] MEDS ORDERED: POTASSIUM CHLORIDE 20 MEQ TABLET PO ONE (11:25)
--- NOTE | 2017-05-17 11:27 | Hospitalist Progress Note ---
Assessment and Plan (1) Hypokalemia Status: Resolved Assessment and plan: Oral and IV replacement; will monitor Current Visit: No (2) Pancreatitis, acute Status: Resolved Assessment and plan: IVF; pain control; advance diet as tolerated; will monitor Current Visit: No Qualifiers: Pancreatitis type: alcohol induced Hospitalist: Subjective Interval history: Ms. Lopez is a 49-year-old female was admitted for acute pancreatitis. Patient reports feeling a little bit better today but pain still persists. Patient requested a diet advancement from clear liquids to full liquids. No new complaints. Exam - Constitutional Vitals: Period Temp Pulse Resp BP Sys/Boyce Pulse Ox Last 24 Hr 97.3 F-97.8 F 83-108 17-20 134-244/78-142 96-98 General appearance: no acute distress, over weight - Eye Eye exam: Present: EOMI - Respiratory Respiratory exam: Present: clear to auscultation bilaterally - Cardiovascular Cardiovascular exam: Present: regular rate and rhythm. Absent: systolic murmur - GI/Abdominal GI/Abdominal exam: Present: distended (mild), hypoactive bowel sounds, tenderness (diffuse but worse in the epigastric region) - Neurological Exam Neurological exam: Present: alert, oriented X3 - Psychiatric Psychiatric exam: Present: normal affect, normal mood Results - Labs CBC & BMP: 05/17/17 07:47 05/17/17 07:47
[2017-05-17] MEDS: SODIUM CHLOR 0.9% KCL 40 MEQ 40 MEQ/1,000 ML BAG IV SCH ×2 (12:08→20:21)
[2017-05-17] MEDS ORDERED: diphenhydrAMINE CAP 50 MG CAPSULE PO PRN (16:52)
[2017-05-18] MEDS: HYDROmorphone 2 MG/1 ML VIAL IV PRN ×7 (03:43→23:32)
[2017-05-18] MEDS: FAMOTIDINE 20 MG/2 ML VIAL IV SCH ×2 (03:46→15:43)
[2017-05-18] MEDS: SODIUM CHLOR 0.9% KCL 40 MEQ 40 MEQ/1,000 ML BAG IV SCH (03:50)
[2017-05-18] MEDS: hydrALAZINE 20 MG/1 ML VIAL IV PRN (05:40)
[2017-05-18 06:22] LABS: Basophils % 0.4 % (0.0-0.8); Eosinophils # 0.1 10*3/uL (0.0-0.87); Hematocrit 35.6 VOL% (35.7-47.0); Hemoglobin 11.8 GM/DL (12.0-16.0); Immature Granulocytes % 0.5 %; Immature Granulocytes Absolute 0.04 #; Lymphocytes % 12.5 % (21.3-54.2); Mean Corpuscular HGB Conc 33.1 GM/DL (32-36); Mean Corpuscular Hemoglobin 32 PG (27-34); Mean Corpuscular Volume 95.7 FL (87-102); Mean Platelet Volume 11.6 FL (9.6-12.0); Monocytes # 0.4 10*3/uL (0.11-0.8); Monocytes % 4.7 % (1.7-12.7); Neutrophils # 6.5 10*3/uL (1.4-7.4); Neutrophils % 80.9 % (38.7-73.9); Platelet Count 204 T/CUMM (130-400); Red Blood Count 3.72 MC/CUMM (3.8-5.5); Red Cell Distribution Width 14.6 % (9.3-17.3); White Blood Count 8.1 T/CUMM (4-12)
[2017-05-18 07:03] LABS: Albumin 3.6 G/DL (3.4-5.0); Bilirubin,Total 0.6 MG/DL (0.2-1.0); Calcium 8.7 MG/DL (8.5-10.1); Osmolality,Calculated 278.3 MOS/KG (273-304); Potassium 4.2 MMOL/L (3.5-5.1); Total Protein 6.5 G/DL (6.4-8.3)
[2017-05-18] MEDS: ESCITALOPRAM 10 MG TABLET PO SCH (08:19)
[2017-05-18] MEDS: FENOFIBRATE 160 MG TABLET PO SCH (08:19)
[2017-05-18] MEDS: METRONIDAZOLE 1% GEL 60 GM TUBE TOP SCH (08:19)
[2017-05-18] MEDS ORDERED: LORazepam 2 MG/1 ML VIAL IV ONE (10:21)
--- NOTE | 2017-05-18 10:29 | Hospitalist Progress Note ---
Hospitalist: Subjective Interval history: Pt complaining of "unable to get comfortable today.". She reports ELIZABETH with 2-3 mo of left eye blurry vision which is unchanged. She also reports upper abd pain rated 6/10. No abd pain. ?chest pain related to upper abd pain. No SOB at this time. She reported feeling of palpitations earlier. She has a history of anxiety and reports taking Klonopin in the past. No nausea or vomiting today. Last BM 1 day ago that was soft but no diarrhea. No melena or BRBPR. She complains of chronic lower back pain today. Had IV narcotics this am around 9AM. Exam - Constitutional Vitals: Period Temp Pulse Resp BP Sys/Boyce Pulse Ox Last 24 Hr 96.1 F-97.8 F 78-101 18-20 134-183/81-115 91-100 Exam: Anxious appearing, figiditing in the bed, A and Ox 3 tacycardic RR nl S1/ S2, 3/6 systolic M CTAB nonlabored Soft, NT, ND, +BS, obese abdomen so difficult to assess for HSM or masses Warm well perfused. No C/C/E, HU, nothing localized on exam Results - Labs CBC & BMP: 05/18/17 05:10 05/18/17 05:10 - Impressions (1) Acute on chronic pancreatitis in a patient with a history of alcohol use- improving Status: Resolved Assessment and plan: - pt states she has not had a drink of alcohol since October 2016 Stop IVF; pain control; advance diet as tolerated; will monitor Current Visit: Yes (2) Chronic diastolic CHF with moderate TR and severe LVH Status: Assessment and plan: Stop IVF. Resume clonidine today and when oral intake is back to baseline, resume Losartan 100mg daily Current Visit: Yes (3) Chronic lower back pain due to remote trauma - Pain control. (4) Anxiety/ Depression - Ativan 1mg IV x 1 now. Cont Lexapro. Monitor results (5) AUSTEN - needs F/U with Dr. Arboleda to evaluate getting CPAP/ BIPAP at home (6) Rosacea - topical metronidazole (7) Obesity BMI 30 -recommend weight loss, increased physical activity (8) Hypokalemia - replaced DVT prophylaxis- start Lovenox D/W pt and nurse and all questions answered.
[2017-05-18] MEDS: ENOXAPARIN 40 MG/0.4 ML SYRINGE SUBCUT SCH (15:39)
--- NOTE | 2017-05-18 17:54 | EKG Report ---
Stationary ECG Study [facility] Test Date: 05/18/2017 5:54:37 PM Pat Name: CECE ROA Department: Room: 336 Gender: F Cytotechnologist/Histotechnologist: PAOLO : 1965 Requested by: Laurita Kim Order Number: [id number] Reading MD: EDWIGE MCCABE Intervals [place] Rate: 99 P: 19 MN: 147 QRS: -35 QRSD: 85 T: 133 QT: 356 QTc: 412 Interpretive Statements SINUS RHYTHM MARKED LEFT AXIS DEVIATION SEPTAL MYOCARDIAL INFARCTION, OF INDETERMINATE AGE MODERATE T-WAVE ABNORMALITY, CONSIDER LATERAL ISCHEMIA Electronically Signed On 05-21-17 15:39:49 CDT by EDWIGE MCCABE [email or web address]
[2017-05-19] MEDS: FAMOTIDINE 20 MG/2 ML VIAL IV SCH ×2 (02:35→16:46)
[2017-05-19] MEDS: HYDROmorphone 2 MG/1 ML VIAL IV PRN ×3 (02:37→10:13)
--- NOTE | 2017-05-19 08:08 | XRay Report ---
History: Tachycardia. Pancreatitis. CHF Date: 05/19/2017 Study: Chest x-ray AP portable Comparison exam: February 03, 2017 There is cardiomegaly and borderline prominence of the pulmonary vasculature. The mediastinal contours are unremarkable. There is some increasing patchy parenchymal disease in the right perihilar region which could represent pneumonia or early asymmetric pulmonary edema. Follow-up films recommended. There is no gross pleural effusion. Osseous structures are unchanged. Impression: Right perihilar airspace disease which could represent pneumonia or early asymmetric pulmonary edema. Follow-up films recommended. Cardiomegaly and borderline pulmonary venous hypertension appearance PROCEDURE INTERPRETED AT [facility] DEPARTMENT OF RADIOLOGY Final Report Signed by: Dr. Rekha Corrales
[2017-05-19] MEDS: ESCITALOPRAM 10 MG TABLET PO SCH (10:20)
[2017-05-19] MEDS: FENOFIBRATE 160 MG TABLET PO SCH (10:20)
[2017-05-19] MEDS: METRONIDAZOLE 1% GEL 60 GM TUBE TOP SCH (10:21)
[2017-05-19] MEDS: ENOXAPARIN 40 MG/0.4 ML SYRINGE SUBCUT SCH (10:23)
[2017-05-19] MEDS: hydrALAZINE 20 MG/1 ML VIAL IV PRN (12:51)
--- NOTE | 2017-05-19 14:22 | Hospitalist Progress Note ---
Hospitalist: Subjective Interval history: Pt seen this am around 10AM. ELIZABETH resolved. Much less anxious today. Abdominal pain improved. C/O chronic back pain. No fever. No nausea or vomiting. Tolerated full liquid diet. Exam - Constitutional Vitals: Period Temp Pulse Resp BP Sys/Byoce Pulse Ox Last 24 Hr 96.3 F-98.9 F 78-104 16-20 145-198/87-122 95-100 Exam: Awake, alert and oriented x 3, lying in the hospital bed, NAD tacycardic RR nl S1/ S2, 3/6 systolic M CTAB nonlabored Soft, NT, ND, +BS, obese abdomen so difficult to assess for HSM or masses Warm well perfused. No C/C/E, HU, nothing localized on exam Results - Labs CBC & BMP: 05/18/17 05:10 05/18/17 05:10 - Impressions (1) Acute on chronic pancreatitis in a patient with a history of alcohol use- improving Status: Resolved Assessment and plan: - pt states she has not had a drink of alcohol since October 2016 Attempt to wean IV pain meds today. Advance diet today; will monitor. If continues to improve, will likely dc 05/20 Current Visit: Yes (2) Chronic diastolic CHF with moderate TR and severe LVH Status: Assessment and plan: Stop IVF. Cont clonidine. Resume Losartan 100mg daily Current Visit: Yes (3) Chronic lower back pain due to remote trauma - Pain control. (4) Anxiety/ Depression - s/p Ativan 1mg IV x 1. Mood more stable today. Cont Lexapro. (5) AUSTEN - needs F/U with Dr. Arboleda to evaluate getting CPAP/ BIPAP at home. Will arrange at discharge. (6) Rosacea - topical metronidazole (7) Obesity BMI 30 -recommend weight loss, increased physical activity (8) Hypokalemia - replaced DVT prophylaxis- start Lovenox D/W pt and nurse and all questions answered. Possible dc in am
[2017-05-19] MEDS: LOSARTAN 50 MG TABLET PO SCH (16:45)
[2017-05-19] MEDS: oxyCODONE/ACETAMINOPHEN 5-325 MG TABLET PO SCH ×2 (16:45→21:13)
[2017-05-20] MEDS: FAMOTIDINE 20 MG/2 ML VIAL IV SCH (03:05)
[2017-05-20] MEDS: HYDROmorphone 2 MG/1 ML VIAL IV PRN ×2 (04:26→09:54)
[2017-05-20] MEDS: oxyCODONE/ACETAMINOPHEN 5-325 MG TABLET PO SCH (05:47)
[2017-05-20] MEDS: METRONIDAZOLE 1% GEL 60 GM TUBE TOP SCH (08:31)
[2017-05-20] MEDS: LOSARTAN 50 MG TABLET PO SCH (08:32)
[2017-05-20] MEDS: ESCITALOPRAM 10 MG TABLET PO SCH (08:32)
[2017-05-20] MEDS: FENOFIBRATE 160 MG TABLET PO SCH (08:32)
[2017-05-20] MEDS ORDERED: ALBUTEROL/IPRATROPIUM 3 ML NEB RESP TX ONE (08:45)
[2017-05-20] MEDS ORDERED: FUROSEMIDE 20 MG/2 ML VIAL IV ONE (09:48)
--- NOTE | 2017-05-20 09:52 | Discharge Summary ---
Hospital Course - Hospital Course Hospital Course: Pt is a 52 year old female with a history of pancreatitis due to alcohol use, obesity, HTN, AUSTEN, chronic back pain and anxiety/depression who presented to the hospital with abdominal pain and nausea. She was found to have acute pancreatitis with an elevated lipase level. She was started on IVF, clear diet, IV pain medication. Symptoms improved with bowel rest. She was advanced to a soft, low fat diet as tolerated. Repeat labs showed resolution of elevation of lipase. Electrolytes were replaced as needed. She had an episode of anxiety which responded to Ativan IV x 1. For blood pressure, she was restarted on her home medication with good control. Due to her history of diastolic CHF, IVF were held and she was given Lasix IV x 1 due to mild SOB. CXR showed mild pulm edema. She also received a bronchodilator treatment with good response. She was encouraged to follow-up with sleep medicine outpatient for sleep study with titration. Once she was tolerating a diet, abdominal pain was resolved and SOB resolved, she was discharged to home in good condition. - Time spent with patient Time with patient DS: Greater than 30 minutes (40 minutes) Diagnosis - Discharge Diagnosis (1) Acute on chronic pancreatitis Status: Acute (2) Anxiety Status: Chronic (3) Depression Status: Chronic (4) Diabetes Status: Chronic (5) Essential hypertension Status: Chronic (6) History of alcohol abuse Status: Chronic (7) Chronic pain syndrome Status: Chronic (8) Rosacea Status: Acute Specialty Discharge - Follow Up or Referrals Follow up with: Mabel Arboleda MD [Physician] - 2 Weeks (AUSTEN follow-up. Needs sleep study with titration) , PCP [Other] - 2 Weeks Discharge Plan - Discharge Data Disposition: Disch To Home/Self Care Condition at Discharge: Stable Discharge Diet: advance to your usual diet Activity: other (weigh self daily. If weight increases or decreases by more than 3 lbs, notify MD) Contact your physician if you experience:: fever over 101, Difficulty voiding, Redness or swelling, Nausea/Vomiting, Shortness of breath, Bleeding, pain uncontrolled by pain medications - Discharge Medications New Metronidazole 1% Gel [Metrogel 1% Gel] 1 applic TOP DAILY #7 applic Continue Oxycodone HCl/Acetaminophen [Percocet 10-325 mg Tablet] 10 mg PO TID Esomeprazole Magnesium [Nexium] 1 capsule PO QAM cloNIDine TAB [Catapres Tab] 0.2 mg PO TID tablet Fenofibrate [Tricor] 160 mg PO QAM Escitalopram [Lexapro] 20 mg PO QAM #30 tablet Losartan [Cozaar] 100 mg PO QAM #30 tablet - Follow Up or Referral - Forms/Instructions Instructions: Pancreatitis (DC) Exam - Constitutional Vitals: Period Temp Pulse Resp BP Sys/Boyce Pulse Ox Last 24 Hr 96.9 F-98.2 F 63-99 16-20 153-198/83-107 97-100 Exam: A and O x 3 RRR no M CTAB nonlabored Soft, NT, ND, +BS, +obese abdomen Warm no c/c/e Discharge Results Labs on day of discharge: Labs from last 24 hours 05/20/17 05/20/17 05/19/17 07:04 05:31 23:32 POC Glucose 196 H 211 H 180 H 05/19/17 05/19/17 18:54 11:15 POC Glucose 225 H 237 H DS: Provider Date of admission: 05/16/17 15:46 Primary care physician: . No PCP Attending physician on admission: Michael Lerma MD Consults: 05/16/17 17:49 Consult to Pastoral Services [CONS] Routine Comment: Pastoral Screen: Request Credit Verification Clerk Visit Pastoral Screen Source of Request: Patient Discharging clinician: Laurita Kim MD
[2017-05-20] MEDS: ENOXAPARIN 40 MG/0.4 ML SYRINGE SUBCUT SCH (10:01)
[2017-05-20 11:33] VITALS: BP 165/110
== END 2017-05-20 13:55 | disposition home or self-care (01) | DRG 439 ==
LOC: N.ED 09:59 → SUATTDRO 15:46 → N.EDINP 15:48 → N.3E 17:07
PROVIDERS: ADMIT Internal Medicine; ATTEND Pediatrics

== ENCOUNTER 2017-08-30 15:55 | Inpatient (IN) ==
[2017-08-30] MEDS ORDERED: ONDANSETRON 4 MG/2 ML VIAL IV STA ×2 (16:29→18:32)
[2017-08-30] MEDS ORDERED: SODIUM CHLORIDE 0.9% 1,000 ML IV STA (16:29)
[2017-08-30] MEDS ORDERED: ONDANSETRON 4 MG/2 ML VIAL ONE (16:51)
[2017-08-30 17:21] LABS: Basophils % 0.2 % (0.0-0.8); Eosinophils # 0.1 10*3/uL (0.0-0.87); Eosinophils % 1.4 % (0.00-10.9); Hematocrit 42.2 VOL% (35.7-47.0); Hemoglobin 14.7 GM/DL (12.0-16.0); Immature Granulocytes % 0.5 %; Immature Granulocytes Absolute 0.04 #; Lymphocytes # 2.1 10*3/uL (1.4-4.0); Lymphocytes % 24.2 % (21.3-54.2); Mean Corpuscular HGB Conc 34.8 GM/DL (32-36); Mean Corpuscular Hemoglobin 33 PG (27-34); Mean Corpuscular Volume 93.8 FL (87-102); Mean Platelet Volume 10.4 FL (9.6-12.0); Monocytes # 0.4 10*3/uL (0.11-0.8); Neutrophils % 68.7 % (38.7-73.9); Platelet Count 273 T/CUMM (130-400); Red Cell Distribution Width 14.7 % (9.3-17.3); White Blood Count 8.7 T/CUMM (4-12)
[2017-08-30 17:40] LABS: Alanine Aminotransferase 15 U/L (13-56); Albumin 4.1 G/DL (3.4-5.0); Alkaline Phosphatase 87 U/L (45-117); Aspartate Amino Transferase 19 U/L (0-37); Bilirubin,Total < 0.39 MG/DL (0.2-1.0); Blood Urea Nitrogen 15 MG/DL (7-18); Calcium 9.2 MG/DL (8.5-10.1); Glucose 165 MG/DL (74-106); Osmolality,Calculated 279.7 MOS/KG (273-304); Potassium 3.3 MMOL/L (3.5-5.1); Sodium 138 MMOL/L (136-145)
[2017-08-30] MEDS ORDERED: diphenhydrAMINE CAP 25 MG CAPSULE PO PRN (18:30)
[2017-08-30] MEDS ORDERED: ACETAMINOPHEN 325 MG TABLET PO PRN ×2 (18:30)
[2017-08-30] MEDS ORDERED: guaiFENesin/DM ER 600-30 MG TABLET PO PRN (18:30)
[2017-08-30] MEDS ORDERED: ZALEPLON 5 MG CAPSULE PO PRN (18:30)
[2017-08-30] MEDS ORDERED: PROMETHAZINE 25 MG/1 ML VIAL IM PRN (18:30)
[2017-08-30] MEDS ORDERED: DOCUSATE SODIUM 100 MG CAPSULE PO PRN (18:30)
[2017-08-30] MEDS ORDERED: HYDROmorphone 2 MG/1 ML VIAL IV STA (18:32)
[2017-08-30] MEDS ORDERED: HYDROmorphone 2 MG/1 ML VIAL ONE (18:34)
[2017-08-30] MEDS ORDERED: hydrALAZINE 20 MG/1 ML VIAL IV ONE (20:38)
[2017-08-30] MEDS ORDERED: hydrALAZINE 20 MG/1 ML VIAL IV PRN (20:41)
[2017-08-30] MEDS ORDERED: PANTOPRAZOLE 40 MG TABLET PO SCH (21:00)
[2017-08-30] MEDS: PIPERACILLIN/TAZOBACTAM 3,375 MG in SODIUM CHLORIDE 0.9% 100 ML IV SCH (21:00)
[2017-08-30] MEDS: SODIUM CHLORIDE 0.9% 1,000 ML IV SCH (21:04)
[2017-08-30] MEDS: HYDROmorphone 2 MG/1 ML VIAL IV PRN ×2 (21:05→23:41)
[2017-08-30] MEDS: FENOFIBRATE 160 MG TABLET PO SCH (21:16)
[2017-08-30] MEDS: ESCITALOPRAM 10 MG TABLET PO SCH (21:16)
[2017-08-30] MEDS: ENOXAPARIN 40 MG/0.4 ML SYRINGE SUBCUT SCH (21:18)
[2017-08-30] MEDS: cloNIDine 0.1 MG TABLET PO SCH (23:43)
[2017-08-30] MEDS: LOSARTAN 50 MG TABLET PO SCH (23:44)
[2017-08-30] MEDS: PANTOPRAZOLE 40 MG TABLET PO SCH (23:45)
[2017-08-31 01:31] LABS: Barbiturates Screen,Urine Negative (Negative); Benzodiazepines Screen,Urine Negative (Negative); Cannabinoid Screen,Urine Negative (Negative); Opiate Screen,Urine Positive (Negative); Phencyclidine Screen,Urine Negative (Negative)
[2017-08-31 01:35] LABS: Alcohol Patient Result Negative (Negative)
[2017-08-31] MEDS: HYDROmorphone 2 MG/1 ML VIAL IV PRN ×9 (02:45→23:23)
[2017-08-31] MEDS: SODIUM CHLORIDE 0.9% 1,000 ML IV SCH ×3 (02:48→22:25)
[2017-08-31] MEDS: PIPERACILLIN/TAZOBACTAM 3,375 MG in SODIUM CHLORIDE 0.9% 100 ML IV SCH ×3 (03:53→16:36)
[2017-08-31 06:52] LABS: Basophils % 0.4 % (0.0-0.8); Eosinophils # 0.1 10*3/uL (0.0-0.87); Eosinophils % 1.1 % (0.00-10.9); Hematocrit 36.6 VOL% (35.7-47.0); Immature Granulocytes % 0.6 %; Immature Granulocytes Absolute 0.05 #; Lymphocytes # 1.5 10*3/uL (1.4-4.0); Lymphocytes % 18.8 % (21.3-54.2); Mean Corpuscular HGB Conc 33.6 GM/DL (32-36); Mean Corpuscular Hemoglobin 33 PG (27-34); Mean Corpuscular Volume 97.3 FL (87-102); Mean Platelet Volume 10.8 FL (9.6-12.0); Monocytes # 0.4 10*3/uL (0.11-0.8); Monocytes % 4.6 % (1.7-12.7); Neutrophils # 6.1 10*3/uL (1.4-7.4); Neutrophils % 74.5 % (38.7-73.9); Platelet Count 227 T/CUMM (130-400); Red Blood Count 3.76 MC/CUMM (3.8-5.5); Red Cell Distribution Width 14.9 % (9.3-17.3); White Blood Count 8.2 T/CUMM (4-12)
[2017-08-31 07:03] LABS: Hemoglobin 12.3 GM/DL (12.0-16.0)
[2017-08-31 07:28] LABS: Albumin 3.3 G/DL (3.4-5.0); Bilirubin,Total 1.4 MG/DL (0.2-1.0); Calcium 8.4 MG/DL (8.5-10.1); Osmolality,Calculated 278.8 MOS/KG (273-304); Potassium 3.3 MMOL/L (3.5-5.1)
[2017-08-31] MEDS: ONDANSETRON 4 MG/2 ML VIAL IV PRN ×3 (08:02→23:21)
[2017-08-31] MEDS ORDERED: PANTOPRAZOLE 40 MG TABLET PO SCH (09:00)
[2017-08-31] MEDS: cloNIDine 0.1 MG TABLET PO SCH ×3 (09:27→21:27)
[2017-08-31] MEDS: FENOFIBRATE 160 MG TABLET PO SCH (21:27)
[2017-08-31] MEDS: LOSARTAN 50 MG TABLET PO SCH (21:27)
[2017-08-31] MEDS: ENOXAPARIN 40 MG/0.4 ML SYRINGE SUBCUT SCH (21:28)
[2017-08-31] MEDS: ESCITALOPRAM 10 MG TABLET PO SCH (21:28)
[2017-08-31] MEDS: PANTOPRAZOLE 40 MG TABLET PO SCH (21:39)
[2017-09-01] MEDS: SODIUM CHLORIDE 0.9% 1,000 ML IV SCH ×4 (01:17→13:27)
[2017-09-01] MEDS: PIPERACILLIN/TAZOBACTAM 3,375 MG in SODIUM CHLORIDE 0.9% 100 ML IV SCH ×2 (01:17→09:17)
[2017-09-01] MEDS: HYDROmorphone 2 MG/1 ML VIAL IV PRN ×2 (02:11→05:36)
[2017-09-01] MEDS: ONDANSETRON 4 MG/2 ML VIAL IV PRN ×3 (05:34→22:53)
[2017-09-01 06:36] LABS: Calcium 8.3 MG/DL (8.5-10.1); Magnesium 1.9 MG/DL (1.8-2.4); Osmolality,Calculated 281.1 MOS/KG (273-304); Potassium 3.5 MMOL/L (3.5-5.1)
[2017-09-01] MEDS: cloNIDine 0.1 MG TABLET PO SCH ×3 (09:16→21:26)
[2017-09-01] MEDS: oxyCODONE/ACETAMINOPHEN 5-325 MG TABLET PO PRN ×4 (09:16→22:54)
[2017-09-01] MEDS: LOSARTAN 50 MG TABLET PO SCH (21:25)
[2017-09-01] MEDS: PANTOPRAZOLE 40 MG TABLET PO SCH (21:25)
[2017-09-01] MEDS: ENOXAPARIN 40 MG/0.4 ML SYRINGE SUBCUT SCH (21:25)
[2017-09-01] MEDS: ESCITALOPRAM 10 MG TABLET PO SCH (21:25)
[2017-09-01] MEDS: FENOFIBRATE 160 MG TABLET PO SCH (21:26)
[2017-09-02] MEDS ORDERED: hydrALAZINE 20 MG/1 ML VIAL IV PRN (00:18)
[2017-09-02] MEDS: oxyCODONE/ACETAMINOPHEN 5-325 MG TABLET PO PRN ×3 (03:48→13:02)
[2017-09-02 07:19] LABS: Albumin 2.6 G/DL (3.4-5.0); Bilirubin,Total 0.4 MG/DL (0.2-1.0); Calcium 8.2 MG/DL (8.5-10.1); Osmolality,Calculated 283.8 MOS/KG (273-304); Potassium 3.5 MMOL/L (3.5-5.1); Total Protein 5.2 G/DL (6.4-8.3)
[2017-09-02] MEDS: cloNIDine 0.1 MG TABLET PO SCH (09:03)
[2017-09-02 11:26] VITALS: BP 182/95
[2017-09-02] MEDS ORDERED: NIFEdipine 10 MG CAPSULE PO ONE (12:39)
== END 2017-09-02 14:05 | disposition home or self-care (01) | DRG 439 ==
LOC: N.ED 15:55 → N.EDINP 18:30 → N.2E 19:17
PROVIDERS: ADMIT Internal Medicine; ATTEND Internal Medicine

== ENCOUNTER 2017-10-12 03:49 | Inpatient (IN) ==
[2017-10-12] MEDS ORDERED: SODIUM CHLORIDE 0.9% 1,000 ML IV STA (04:44)
[2017-10-12] MEDS ORDERED: hydrALAZINE 20 MG/1 ML VIAL IV STA (04:44)
[2017-10-12] MEDS ORDERED: HYDROmorphone 2 MG/1 ML VIAL IV STA (04:44)
[2017-10-12] MEDS ORDERED: PANTOPRAZOLE 40 MG VIAL IV STA (04:44)
[2017-10-12] MEDS ORDERED: ONDANSETRON 4 MG/2 ML VIAL IV STA (04:44)
[2017-10-12] MEDS ORDERED: ALUM/MAG/SIMETH/LIDO VISC 1:1 30 ML BOTTLE PO STA (04:44)
[2017-10-12 05:09] LABS: Basophils % 0.2 % (0.0-0.8); Eosinophils # 0.1 10*3/uL (0.0-0.87); Eosinophils % 0.5 % (0.00-10.9); Hematocrit 43.1 VOL% (35.7-47.0); Hemoglobin 14.8 GM/DL (12.0-16.0); Immature Granulocytes % 0.6 %; Immature Granulocytes Absolute 0.06 #; Lymphocytes # 1.1 10*3/uL (1.4-4.0); Lymphocytes % 10.7 % (21.3-54.2); Mean Corpuscular HGB Conc 34.3 GM/DL (32-36); Mean Corpuscular Hemoglobin 32 PG (27-34); Mean Corpuscular Volume 94.3 FL (87-102); Mean Platelet Volume 10.8 FL (9.6-12.0); Monocytes # 0.6 10*3/uL (0.11-0.8); Monocytes % 5.8 % (1.7-12.7); Neutrophils # 8.6 10*3/uL (1.4-7.4); Neutrophils % 82.2 % (38.7-73.9); Platelet Count 295 T/CUMM (130-400); Red Blood Count 4.57 MC/CUMM (3.8-5.5); Red Cell Distribution Width 14.6 % (9.3-17.3); White Blood Count 10.4 T/CUMM (4-12)
[2017-10-12 05:21] LABS: Alanine Aminotransferase 25 U/L (13-56); Albumin 3.8 G/DL (3.4-5.0); Alkaline Phosphatase 93 U/L (45-117); Amylase 172 U/L (25-115); Aspartate Amino Transferase 21 U/L (0-37); Blood Urea Nitrogen 12 MG/DL (7-18); Calcium 8.8 MG/DL (8.5-10.1); Glucose 245 MG/DL (74-106); Magnesium 1.8 MG/DL (1.8-2.4); Potassium 3.5 MMOL/L (3.5-5.1); Sodium 136 MMOL/L (136-145); Total Protein 7.3 G/DL (6.4-8.3); Troponin I Only < 0.015 NG/ML (0.00-0.045)
[2017-10-12] MEDS ORDERED: PANTOPRAZOLE 40 MG VIAL IV ONE ×2 (05:40→08:11)
[2017-10-12] MEDS ORDERED: hydrALAZINE 20 MG/1 ML VIAL ONE ×2 (05:41→14:13)
[2017-10-12] MEDS ORDERED: HYDROmorphone 2 MG/1 ML VIAL ONE ×3 (05:41→13:50)
[2017-10-12] MEDS ORDERED: ONDANSETRON 4 MG/2 ML VIAL ONE ×3 (05:41→13:50)
[2017-10-12 05:52] LABS: Apearance,Urine CLOUDY (Clear); Bilirubin,Urine Negative (Negative); Blood, Urine Negative (Negative); Glucose,Urine (UA) 150 mg/dL (Negative); Hyaline Casts,Urine 2 /LPF (0-3); Ketones,Urine Negative (Negative); Mucus,Urine Occasional /LPF (Occasional); Nitrite,Urine Negative (Negative); Protein,Urine 100 MG/DL; RBC,Urine 2 /HPF (0-4); Squamous Epithelial Cell,Urine Occasional /HPF (0-10); Urine Color Yellow (Yellow); Urine Specific Gravity 1.018 (1.001-1.035); Urine Urobilinogen < 2.0 EU/DL (0.2-1.0); WBC,Urine 12 /HPF (0-6)
[2017-10-12] MEDS ORDERED: cefTRIAXone 1,000 MG in SODIUM CHLORIDE 0.9% 100 ML IV STA (05:53)
[2017-10-12] MEDS ORDERED: SODIUM CHLORIDE 0.9% 2,250 ML IV ONE (06:01)
[2017-10-12 06:03] LABS: Barbiturates Screen,Urine Negative (Negative); Benzodiazepines Screen,Urine Negative (Negative); Cannabinoid Screen,Urine Negative (Negative); Opiate Screen,Urine Negative (Negative); Phencyclidine Screen,Urine Negative (Negative)
[2017-10-12 06:21] LABS: PT Patient Result 10.2 SECS; Partial Thromboplastin Time 27.8 SECS (0-40)
[2017-10-12] MEDS ORDERED: niCARdipine 25 MG/10 ML VIAL IV ONE ×2 (06:32→12:32)
[2017-10-12] MEDS: niCARdipine INJ 25 MG in SODIUM CHLORIDE 0.9% 240 ML IV SCH (06:40)
[2017-10-12] MEDS: SODIUM CHLORIDE 0.9% 1,000 ML IV SCH ×3 (07:00→23:51)
[2017-10-12] MEDS ORDERED: cefTRIAXone 1,000 MG VIAL ONE (07:07)
[2017-10-12] MEDS ORDERED: PIPERACILLIN/TAZOBACTAM 3,375 MG VIAL IV ONE ×2 (07:18→15:19)
[2017-10-12] MEDS ORDERED: SODIUM CHLORIDE 0.9% 100 ML IV ONE ×2 (07:18→15:20)
[2017-10-12] MEDS ORDERED: ALBUTEROL 2.5 MG/3 ML NEB RESP TX PRN (07:45)
[2017-10-12] MEDS ORDERED: ACETAMINOPHEN 325 MG TABLET PO PRN (07:45)
[2017-10-12] MEDS: PIPERACILLIN/TAZOBACTAM 3,375 MG in SODIUM CHLORIDE 0.9% 100 ML IV SCH ×3 (07:46→23:52)
[2017-10-12] MEDS ORDERED: VANCOMYCIN 1,000 MG VIAL ONE (07:52)
[2017-10-12] MEDS: VANCOMYCIN INJ 1,000 MG in SODIUM CHLORIDE 0.9% 250 ML IV SCH ×2 (08:05→23:50)
[2017-10-12] MEDS: HYDROmorphone 2 MG/1 ML VIAL IV PRN ×5 (08:06→21:14)
[2017-10-12] MEDS: ONDANSETRON 4 MG/2 ML VIAL IV PRN ×5 (08:07→21:14)
[2017-10-12] MEDS ORDERED: ENOXAPARIN 40 MG/0.4 ML SYRINGE ONE (08:11)
[2017-10-12] MEDS: ENOXAPARIN 40 MG/0.4 ML SYRINGE SUBCUT SCH (08:23)
[2017-10-12] MEDS: PANTOPRAZOLE 40 MG VIAL IV SCH (08:24)
[2017-10-12] MEDS ORDERED: cloNIDine 0.2 MG/24 HR PATCH TRANSDERM SCH (09:00)
[2017-10-12] MEDS ORDERED: ALUM/MAG/SIMETH/LIDO VISC 1:1 30 ML BOTTLE PO ONE (10:24)
[2017-10-12] MEDS ORDERED: hydrALAZINE 20 MG/1 ML VIAL IV PRN (11:22)
[2017-10-12] MEDS ORDERED: NICOTINE 7 MG/24 HR PATCH TRANSDERM PRN (11:55)
[2017-10-12 12:38] LABS: Lactic Acid 3.2 MMOL/L (0.4-2.0)
[2017-10-12] MEDS ORDERED: FUROSEMIDE 20 MG/2 ML VIAL IV ONE (15:55)
[2017-10-12] MEDS: amLODIPine 10 MG TABLET PO SCH (17:50)
[2017-10-12] MEDS ORDERED: LOSARTAN 50 MG TABLET PO SCH (21:00)
[2017-10-12] MEDS ORDERED: METOPROLOL SUCCINATE XL 25 MG TABLET PO SCH (21:00)
[2017-10-12] MEDS: LOSARTAN 50 MG TABLET PO SCH (21:13)
[2017-10-12] MEDS: METOPROLOL SUCCINATE XL 25 MG TABLET PO SCH (21:14)
[2017-10-12] MEDS: FENOFIBRATE 160 MG TABLET PO SCH (21:14)
[2017-10-13] MEDS: HYDROmorphone 2 MG/1 ML VIAL IV PRN ×7 (00:28→20:58)
[2017-10-13] MEDS: ONDANSETRON 4 MG/2 ML VIAL IV PRN ×4 (00:29→20:58)
[2017-10-13 05:34] LABS: Basophils % 0.2 % (0.0-0.8); Eosinophils % 0.7 % (0.00-10.9); Hemoglobin 11.7 GM/DL (12.0-16.0); Immature Granulocytes % 0.4 %; Immature Granulocytes Absolute 0.02 #; Lymphocytes % 17.1 % (21.3-54.2); Mean Corpuscular HGB Conc 34.4 GM/DL (32-36); Mean Corpuscular Hemoglobin 33 PG (27-34); Mean Corpuscular Volume 96.6 FL (87-102); Mean Platelet Volume 10.6 FL (9.6-12.0); Monocytes # 0.3 10*3/uL (0.11-0.8); Monocytes % 5.9 % (1.7-12.7); Neutrophils # 4.2 10*3/uL (1.4-7.4); Neutrophils % 75.7 % (38.7-73.9); Platelet Count 206 T/CUMM (130-400); Red Blood Count 3.52 MC/CUMM (3.8-5.5); Red Cell Distribution Width 14.6 % (9.3-17.3); White Blood Count 5.6 T/CUMM (4-12)
[2017-10-13 06:20] LABS: Albumin 3.2 G/DL (3.4-5.0); Calcium 7.7 MG/DL (8.5-10.1); Osmolality,Calculated 276.7 MOS/KG (273-304); Potassium 2.9 MMOL/L (3.5-5.1); Total Protein 6.1 G/DL (6.4-8.3)
[2017-10-13] MEDS: ENOXAPARIN 40 MG/0.4 ML SYRINGE SUBCUT SCH (08:46)
[2017-10-13] MEDS: amLODIPine 10 MG TABLET PO SCH (08:46)
[2017-10-13] MEDS: PIPERACILLIN/TAZOBACTAM 3,375 MG in SODIUM CHLORIDE 0.9% 100 ML IV SCH (08:46)
[2017-10-13] MEDS: PANTOPRAZOLE 40 MG VIAL IV SCH (08:47)
[2017-10-13] MEDS: niCARdipine INJ 25 MG in SODIUM CHLORIDE 0.9% 240 ML IV SCH (09:16)
[2017-10-13] MEDS: SODIUM CHLORIDE 0.9% 1,000 ML IV SCH ×3 (09:18→13:41)
[2017-10-13] MEDS: VANCOMYCIN INJ 1,000 MG in SODIUM CHLORIDE 0.9% 250 ML IV SCH (10:07)
[2017-10-13] MEDS: POTASSIUM CHLORIDE 20 MEQ TABLET PO PRN ×4 (10:10→16:18)
[2017-10-13] MEDS ORDERED: MAGNESIUM SULF RIDER 2 GM in PREMIX 1 EACH IV ONE (11:19)
[2017-10-13] MEDS: FENOFIBRATE 160 MG TABLET PO SCH (20:58)
[2017-10-13] MEDS: METOPROLOL SUCCINATE XL 25 MG TABLET PO SCH (20:59)
[2017-10-13] MEDS: oxyCODONE/ACETAMINOPHEN 5-325 MG TABLET PO SCH (20:59)
[2017-10-13] MEDS: LOSARTAN 50 MG TABLET PO SCH (20:59)
[2017-10-14] MEDS: HYDROmorphone 2 MG/1 ML VIAL IV PRN ×2 (00:48→07:58)
[2017-10-14] MEDS: SODIUM CHLORIDE 0.9% 1,000 ML IV SCH ×3 (00:50→08:53)
[2017-10-14] MEDS: ENOXAPARIN 40 MG/0.4 ML SYRINGE SUBCUT SCH (08:47)
[2017-10-14] MEDS: amLODIPine 10 MG TABLET PO SCH (08:48)
[2017-10-14] MEDS: oxyCODONE/ACETAMINOPHEN 5-325 MG TABLET PO SCH ×2 (08:48→14:00)
[2017-10-14] MEDS: POTASSIUM CHLORIDE 20 MEQ TABLET PO PRN (08:48)
[2017-10-14] MEDS: PANTOPRAZOLE 40 MG VIAL IV SCH (08:48)
[2017-10-14 09:47] LABS: Calcium 8.1 MG/DL (8.5-10.1); Potassium 3.7 MMOL/L (3.5-5.1)
[2017-10-14 17:07] VITALS: BP 142/89
== END 2017-10-14 18:06 | disposition home or self-care (01) | DRG 439 ==
LOC: N.ED 03:49 → N.EDINP 07:32 → N.TELES 16:55
PROVIDERS: ADMIT Internal Medicine; ATTEND Internal Medicine

== ENCOUNTER 2018-05-01 22:07 | Inpatient (IN) ==
[2018-05-06 10:47] VITALS: BP 148/85
== END 2018-05-06 13:45 | disposition home or self-care (01) | DRG 445 ==
LOC: N.ED 22:07 → N.EDINP 05-02 01:30 → N.3E 05-02 01:57
PROVIDERS: ADMIT Internal Medicine; ATTEND Internal Medicine
PROC: ERCPWSP (ICD-10-PCS; 2018-05-03 12:20)

== ENCOUNTER 2020-09-03 16:56 | Inpatient (IN) ==
[2020-09-03 17:42] LABS: Basophils % 0.3 % (0.0-0.8); Eosinophils % 0.3 % (0.00-10.9); Hematocrit 36.1 VOL% (35.7-47.0); Immature Granulocytes % 0.3 %; Immature Granulocytes Absolute 0.03 #; Lymphocytes # 1.7 10*3/uL (1.4-4.0); Lymphocytes % 17.4 % (21.3-54.2); Mean Corpuscular HGB Conc 33.2 GM/DL (32-36); Mean Corpuscular Volume 95.8 FL (87-102); Mean Platelet Volume 10.2 FL (9.6-12.0); Monocytes % 3.7 % (1.7-12.7); Platelet Count 359 T/CUMM (130-400); Red Blood Count 3.77 MC/CUMM (3.8-5.5); Red Cell Distribution Width 13.6 % (9.3-17.3); White Blood Count 9.5 T/CUMM (4-12)
[2020-09-03] MEDS ORDERED: HYDROmorphone 2 MG/1 ML VIAL IV STA (17:58)
[2020-09-03] MEDS ORDERED: SODIUM CHLORIDE 0.9% 1,000 ML IV STA (17:58)
[2020-09-03] MEDS ORDERED: ONDANSETRON 4 MG/2 ML VIAL IV STA (17:58)
[2020-09-03 18:09] LABS: Albumin 3.3 G/DL (3.4-5.0); Bilirubin,Total 1.1 MG/DL (0.2-1.0); Calcium 9.3 MG/DL (8.5-10.1); Total Protein 7.3 G/DL (6.4-8.3)
[2020-09-03 18:52] LABS: Bilirubin,Urine Negative (Negative); Blood, Urine Negative (Negative); Glucose,Urine (UA) Negative (Negative); Ketones,Urine Negative (Negative); Nitrite,Urine Negative (Negative); Protein,Urine Negative; RBC,Urine 2 /HPF (0-4); Squamous Epithelial Cell,Urine Occasional /HPF (0-10); Urine Appearance CLEAR (Clear); Urine Color Straw (Yellow); Urine Specific Gravity 1.004 (1.001-1.035); Urine Urobilinogen < 2.0 EU/DL (0.2-1.0); WBC,Urine 2 /HPF (0-6)
[2020-09-03] MEDS ORDERED: cloNIDine 0.1 MG TABLET PO STA (19:48)
[2020-09-03] MEDS ORDERED: PROMETHAZINE 25 MG/1 ML VIAL IM PRN (19:52)
[2020-09-03] MEDS ORDERED: DOCUSATE SODIUM 100 MG CAPSULE PO PRN (19:52)
[2020-09-03] MEDS ORDERED: ACETAMINOPHEN 325 MG TABLET PO PRN (19:52)
[2020-09-03] MEDS ORDERED: MAGNESIUM SULF RIDER 4 GM in PREMIX 1 EACH IV PRN (19:57)
[2020-09-03] MEDS ORDERED: CLORAZEPATE 7.5 MG TABLET PO PRN (19:57)
[2020-09-03] MEDS ORDERED: MAGNESIUM SULF RIDER 2 GM in PREMIX 1 EACH IV PRN (19:57)
[2020-09-03] MEDS ORDERED: POTASSIUM CHLORIDE INJ 40 MEQ in LACTATED RINGERS 1,000 ML IV SCH (20:00)
[2020-09-03] MEDS: SODIUM CHLORIDE 0.9% 1,000 ML IV SCH (22:09)
[2020-09-03] MEDS: ENOXAPARIN 40 MG/0.4 ML SYRINGE SUBCUT SCH (22:12)
[2020-09-03] MEDS: HYDROmorphone 2 MG/1 ML VIAL IV PRN (22:43)
[2020-09-04] MEDS: POTASSIUM CHLORIDE RIDER 10 MEQ in PREMIX 1 EACH IV PRN ×9 (02:12→16:08)
[2020-09-04] MEDS: HYDROmorphone 2 MG/1 ML VIAL IV PRN ×5 (02:41→19:51)
[2020-09-04 07:02] LABS: Basophils % 0.3 % (0.0-0.8); Eosinophils # 0.2 10*3/uL (0.0-0.87); Eosinophils % 2.6 % (0.00-10.9); Hematocrit 30.8 VOL% (35.7-47.0); Hemoglobin 10.1 GM/DL (12.0-16.0); Immature Granulocytes % 0.3 %; Immature Granulocytes Absolute 0.02 #; Lymphocytes # 1.7 10*3/uL (1.4-4.0); Lymphocytes % 26.8 % (21.3-54.2); Mean Corpuscular HGB Conc 32.8 GM/DL (32-36); Mean Corpuscular Volume 98.7 FL (87-102); Mean Platelet Volume 10.2 FL (9.6-12.0); Monocytes % 3.4 % (1.7-12.7); Neutrophils % 66.6 % (38.7-73.9); Platelet Count 241 T/CUMM (130-400); Red Blood Count 3.12 MC/CUMM (3.8-5.5); Red Cell Distribution Width 13.5 % (9.3-17.3); White Blood Count 6.2 T/CUMM (4-12)
[2020-09-04 07:23] LABS: Albumin 2.7 G/DL (3.4-5.0); Bilirubin,Total 0.8 MG/DL (0.2-1.0); Calcium 8.1 MG/DL (8.5-10.1); Osmolality,Calculated 276.7 MOS/KG (273-304); Risk Ratio 3.2; VLDL CHOLESTEROL 49.6 MG/DL
[2020-09-04] MEDS: PANTOPRAZOLE 40 MG VIAL IV SCH (08:49)
[2020-09-04] MEDS: LOSARTAN 50 MG TABLET PO SCH (08:49)
[2020-09-04] MEDS ORDERED: NICOTINE 21 MG/24 HR PATCH TRANSDERM PRN (09:00)
[2020-09-04] MEDS: SODIUM CHLORIDE 0.9% 1,000 ML IV SCH (16:08)
[2020-09-04] MEDS: cloNIDine 0.1 MG TABLET PO SCH (20:15)
[2020-09-04] MEDS: ENOXAPARIN 40 MG/0.4 ML SYRINGE SUBCUT SCH (20:15)
[2020-09-05] MEDS: HYDROmorphone 2 MG/1 ML VIAL IV PRN ×6 (00:22→21:05)
[2020-09-05] MEDS: SODIUM CHLORIDE 0.9% 1,000 ML IV SCH ×3 (04:27→16:59)
[2020-09-05 05:42] LABS: Basophils % 0.4 % (0.0-0.8); Eosinophils # 0.2 10*3/uL (0.0-0.87); Eosinophils % 3.3 % (0.00-10.9); Hemoglobin 9.7 GM/DL (12.0-16.0); Immature Granulocytes % 0.4 %; Immature Granulocytes Absolute 0.02 #; Lymphocytes # 1.2 10*3/uL (1.4-4.0); Lymphocytes % 22.2 % (21.3-54.2); Mean Corpuscular HGB Conc 32.3 GM/DL (32-36); Mean Platelet Volume 11.3 FL (9.6-12.0); Monocytes % 3.1 % (1.7-12.7); Neutrophils % 70.6 % (38.7-73.9); Platelet Count 206 T/CUMM (130-400); Red Cell Distribution Width 13.6 % (9.3-17.3); White Blood Count 5.5 T/CUMM (4-12)
[2020-09-05] MEDS: PANTOPRAZOLE 40 MG VIAL IV SCH (08:27)
[2020-09-05] MEDS: LOSARTAN 50 MG TABLET PO SCH (08:27)
[2020-09-05 09:51] LABS: Albumin 2.6 G/DL (3.4-5.0); Bilirubin,Total 0.5 MG/DL (0.2-1.0); Calcium 8.1 MG/DL (8.5-10.1); Osmolality,Calculated 269.1 MOS/KG (273-304); Total Protein 6.7 G/DL (6.4-8.3)
[2020-09-05] MEDS: ENOXAPARIN 40 MG/0.4 ML SYRINGE SUBCUT SCH (21:05)
[2020-09-05] MEDS: cloNIDine 0.1 MG TABLET PO SCH (21:05)
[2020-09-05] MEDS: ONDANSETRON 4 MG/2 ML VIAL IV PRN (21:07)
[2020-09-06] MEDS: HYDROmorphone 2 MG/1 ML VIAL IV PRN ×5 (00:57→20:57)
[2020-09-06] MEDS: SODIUM CHLORIDE 0.9% 1,000 ML IV SCH ×2 (06:20→11:27)
[2020-09-06] MEDS ORDERED: propofoL 200 MG/20 ML VIAL IV ONE (09:00)
[2020-09-06] MEDS ORDERED: LIDOCAINE 2% 5 ML VIAL ONE (09:00)
[2020-09-06] MEDS: PANTOPRAZOLE 40 MG VIAL IV SCH (10:26)
[2020-09-06] MEDS: LACTATED RINGERS 1,000 ML IV SCH ×2 (11:27→11:52)
[2020-09-06] MEDS: LOSARTAN 50 MG TABLET PO SCH (15:32)
[2020-09-06] MEDS: ONDANSETRON 4 MG/2 ML VIAL IV PRN (20:53)
[2020-09-06] MEDS: ENOXAPARIN 40 MG/0.4 ML SYRINGE SUBCUT SCH (20:59)
[2020-09-06] MEDS: cloNIDine 0.1 MG TABLET PO SCH (20:59)
[2020-09-07] MEDS: HYDROmorphone 2 MG/1 ML VIAL IV PRN ×4 (00:59→13:02)
[2020-09-07] MEDS: SODIUM CHLORIDE 0.9% 1,000 ML IV SCH ×3 (01:02→15:14)
[2020-09-07] MEDS: HYDROCORTISONE 25 MG SUPP RECTAL PRN ×2 (05:16→13:03)
[2020-09-07 08:41] LABS: Basophils % 0.3 % (0.0-0.8); Eosinophils # 0.2 10*3/uL (0.0-0.87); Eosinophils % 4.3 % (0.00-10.9); Hematocrit 26.8 VOL% (35.7-47.0); Hemoglobin 8.7 GM/DL (12.0-16.0); Immature Granulocytes % 0.3 %; Immature Granulocytes Absolute 0.01 #; Lymphocytes # 0.7 10*3/uL (1.4-4.0); Mean Corpuscular HGB Conc 32.5 GM/DL (32-36); Mean Corpuscular Volume 99.3 FL (87-102); Mean Platelet Volume 10.9 FL (9.6-12.0); Monocytes % 7.2 % (1.7-12.7); Neutrophils % 66.9 % (38.7-73.9); Platelet Count 174 T/CUMM (130-400); White Blood Count 3.5 T/CUMM (4-12)
[2020-09-07] MEDS: PANTOPRAZOLE 40 MG VIAL IV SCH (08:55)
[2020-09-07] MEDS: LOSARTAN 50 MG TABLET PO SCH (08:57)
[2020-09-07 09:03] LABS: Osmolality,Calculated 284.4 MOS/KG (273-304)
[2020-09-07 11:46] VITALS: BP 176/113
[2020-09-07] MEDS: ONDANSETRON 4 MG/2 ML VIAL IV PRN (13:02)
== END 2020-09-07 15:13 | disposition home or self-care (01) | DRG 73 ==
LOC: N.ED 16:56 → N.EDINP 16:56 → N.5E 20:35
PROVIDERS: ADMIT Family Medicine; ATTEND Family Medicine